=== PATIENT | female | born 1965 | race Caucasian/White ===

== ENCOUNTER 2020-10-29 13:47 | Outpatient (REF) | payer MEDICAID, SELFPAY ==
--- NOTE | ~2020-10-29 | MM_ITS ---
EXAMINATION: MM DIAGNOSTIC DIGITAL BREAST TOMOSYNTHESIS, BILATERAL US DIAGNOSTIC ULTRASOUND BREAST, BILATERAL CLINICAL INFORMATION: 55-year-old with history bilateral intermittent nipple discharge for approximately 11 months. Patient notes no palpable mass or pain. Family history breast cancer, maternal aunt. The lifetime risk of breast cancer based on the Tyrer-Cuzick Model is 16%. COMPARISON: Mammography: 08/01/2019, 05/05/2018, 12/10/2016 TECHNIQUE: Digital breast tomosynthesis is performed in both the craniocaudal and mediolateral oblique views along with computer-aided detection (CAD). Synthesized 2D images are generated from the tomosynthesis. Ultrasound ultrasound bilateral breasts is targeted to the retroareolar and periareolar regions. Grayscale imaging and color Doppler are performed without and with harmonics. FINDINGS: There are scattered areas of fibroglandular density (ACR BI-RADS breast composition Category b). Parenchymal pattern is similar to prior studies. There is no developing density or interval mass or architectural abnormality or focal duct ectasia. There are scattered bilateral calcifications predominantly in the anterior breasts similar to prior exams. There are incidental intramammary nodes again seen in the bilateral posterior upper outer quadrants. The axilla and skin contours are unremarkable. There are no significant changes. Targeted bilateral breast ultrasound demonstrates no cystic or solid mass, architectural abnormality, or focal duct ectasia. Results are discussed with the patient at time of visit, using an correspondence coordinator. MM/MM tomosynthesis diagnostic BI IMPRESSION: 1. No mammographic evidence of malignancy. No significant changes from prior exams. 2. Unremarkable bilateral targeted breast ultrasound. ASSESSMENT: BI-RADS 2: Benign RECOMMENDATION: 1. Patient should be managed based on the clinical impression. Suggest laboratories for possible systemic endocrine etiology of the bilateral nipple discharge. 2. Otherwise, routine annual screening mammography. This patient's information was entered into a reminder system with a target due date for their next mammogram.
== END 2020-10-29 13:48 | disposition home or self-care (01) ==
LOC: HO.MAMMO 13:47
PROVIDERS: PCP Internal Medicine; Visit Provider Internal Medicine
DX: N64.52 Nipple discharge (principal)
CPT/HCPCS: 76642; 77062; 77066

== ENCOUNTER 2021-10-07 13:47 | Emergency (ER) | payer MEDICAID, SELFPAY ==
--- NOTE | 2021-10-07 | ECG_ITS ---
Test Reason : cp Blood Pressure : / mmHG Vent. Rate : 066 BPM Atrial Rate : 066 BPM P-R Int : 124 ms QRS Dur : 076 ms QT Int : 378 ms P-R-T Axes : 052 020 028 degrees QTc Int : 396 ms Normal sinus rhythm Normal ECG No significant changes when compared with the previous EKG of 07/16/2018 Referred By: Generic ED Physician Electronically Signed By:VERONICA RUIZ
--- NOTE | ~2021-10-07 | XR_ITS ---
EXAMINATION: XR CHEST CLINICAL INFORMATION: Chest pain COMPARISON: Previous chest x-ray most recent June 2018 TECHNIQUE: Frontal view of the chest was obtained. FINDINGS: No significant abnormality is noted involving the heart, lungs, mediastinum, bony thorax or soft tissues. XR/XR chest 1V IMPRESSION: Unremarkable examination.
[2021-10-07 14:21] VITALS: BP 169/86; PULSE 64; RESP 16; TEMP 35.8; O2SAT 99; BMI 34.4
[2021-10-07 14:38] LABS: MANUAL DIFF FLAG NO
[2021-10-07 14:39] LABS: Basophils Percent Auto 0.5 % (0-2); Eosinophils Absolute Auto 0.5 X10*3/uL (0.0-0.4); Eosinophils Percent Auto 7.4 % (0-4); Hematocrit 38.6 % (37.0-47.0); Hemoglobin 12.8 g/dl (12.0-16.0); Imm Gran Abs Auto 0.01 X10*3/uL (0.00-0.03); Imm Gran Pct Auto 0.2 % (0.0-0.4); Lymphocytes Absolute Auto 2.5 X10*3/uL (1.2-4.9); Lymphocytes Percent Auto 38.2 % (20-40); Mean Corpuscular HGB Conc 33.2 g/dl (31.0-35.0); Mean Corpuscular Hemoglobin 28.4 pg (27.0-33.0); Mean Corpuscular Volume 85.8 fL (80.0-98.0); Mean Platelet Volume 9.8 fL (9.4-12.3); Monocytes Absolute Auto 0.5 X10*3/uL (0.1-1.2); Monocytes Percent Auto 7.8 % (2-11); Neutrophils Absolute Auto 3.1 x10*3/uL (2.0-8.3); Neutrophils Percent Auto 45.9 % (45-73); Platelet Count 220 X10*3/uL (160-400); Red Cell Distribution Width 13.1 % (11.0-16.0); White Blood Count 6.7 X10*3/uL (4.8-10.8)
[2021-10-07 14:55] LABS: Anion Gap 11 (12-20); Blood Urea Nitrogen 10 mg/dL (9-16); Calcium 10.4 mg/dL (8.4-10.2); Carbon Dioxide 27 mmol/L (22-29); Chloride 107 mmol/L (96-108); Creatinine Clr Calc Pharmacy 82.5; Estimated Glomerular Filt Rate > 60; Glucose Random 124 mg/dL (60-115); Sodium 141 mmol/L (135-145)
[2021-10-07 15:03] LABS: Troponin-I High Sensitivity 4.7 ng/L (<3.5-17.0)
[2021-10-07 15:26] VITALS: BP 145/82; PULSE 76; RESP 16; TEMP 36.6; O2SAT 98
[2021-10-07 15:48] VITALS: PULSE 71
--- NOTE | 2021-10-07 15:48 | PC.NURSE ---
pt a&ox3, vss, pt c/o worsening chest pain for ~1 month, 5/10 left sided chest and arm pain. interpreter in room. pending ED provider.
--- NOTE | 2021-10-07 15:58 | ED_ITS ---
HPI - Chest Pain General Chief Complaint: Chest Pain Stated Complaint: chest pain Time Seen by Provider: 10/07/21 15:57 Source: patient Mode of arrival: ambulatory Limitations: no limitations History of Present Illness HPI narrative: This is a 56-year-old female past medical history significant for diabetes presenting to the emergency department with left-sided chest pain/shoulder pain x1 month progressively worsening. Patient tells me that the pain is a squeezing sensation localized to the left chest and at times radiating to her shoulder. Pain is precipitated by movement and palpation of the area. It is better when she does not move that left shoulder or presses on her left chest. Patient tells me she does not remember how this pain started. She tells me the pain is currently a 5/10, however when she moves or presses on the area it is a 10/10. Patient also reports associated shortness of breath, worse with exertion this is new within the past month. Patient is not a smoker. She denies any fevers, chills, nausea, vomiting, abdominal pain, weakness, dizziness, vision changes. MD complaint: chest pain Onset (ago): month(s) (1) Timing of current episode: constant Prior episodes: Yes Pain location: left chest Pain radiation: left shoulder Severity: moderate Pain scale (0-10): 5 Quality: other ( squeezing ) Relieving factors: nothing Exacerbating factors: nothing Treatment prior to arrival: none Related Data Previous Rx's Medication Instructions Recorded cyclobenzaprine 10 mg tablet 10 mg PO BEDTIME PRN #7 tab 10/07/21 naproxen 500 mg tablet 500 mg PO BID PRN #14 tab 10/07/21 Allergies Allergy/AdvReac Type Severity Reaction Status Date / Time No Known Allergies Allergy Unverified 10/07/21 14:21 Review of Systems Review of Systems: Constitutional : No Weight loss, No Fever, No Chills, No Fatigue, No Malaise ENT/Mouth : No sore throat, No Rhinorrhea Eyes: No Eye Pain, No Swelling, No Redness Cardiovascular : + Chest Pain, No SOB, No Dyspnea on Exertion, No Orthopnea, No Edema, No Palpitations Respiratory : No Cough, No Sputum, No Wheezing Gastrointestinal : No Nausea, No Vomiting, No Diarrhea, No Constipation, No abdominal Pain, No Hematochezia, No Melena Genitourinary : No Dysuria, No Urinary Frequency, No Hematuria, Musculoskeletal : No joint pain, No Myalgias, No Joint Swelling Skin : No Skin Lesions, No rash Neuro : No Weakness, No Numbness, No Dizziness, No Headache Psych : No Anxiety/Panic, No Depression All other systems reviewed and are negative Yes all other systems are reviewed and are negative [facility] Past Medical History Attestation statement: The following information was validated with the patient. Source: old records reviewed and nursing notes reviewed Medical History Diabetes Social History Social History Alcohol intake: never Patient Tobacco Use Status: Never used Tobacco Use of substances other than those prescribed or required for medical reasons: No Advance Directives: No Advance Directives Information Provided: No Patient : No Physical Exam Vital Signs: Vital Signs: Last Vital Signs Temp 97.9 F 10/07/21 15:26 Pulse 76 10/07/21 15:26 Resp 16 10/07/21 15:26 BP 145/82 H 10/07/21 15:26 Pulse Ox 98 10/07/21 15:26 BMI result Body Mass Index 34.4 VSS Appearance: Alert.? Oriented X3.? No acute distress.? Head: Normocephalic, atraumatic, no step-offs or deformities Eyes: Pupils equal, round and reactive to light.? ENT: Pharynx normal.? Neck: Normal inspection.? Neck supple.? CVS: Normal heart rate and rhythm.? Pulses normal.?+ pain with palpation of left chest, and anterior aspect of left shoulder, no step-offs or deformities to the shoulder. Respiratory: No respiratory distress.? Breath sounds normal.? Abdomen: Soft and nontender.? Skin: Skin warm and dry.? Normal skin color.? Normal skin turgor.? Extremities: No lower extremity edema.? No calf ttp. 5/5 strength to bilateral upper and lower extremities Back: No midline tenderness, no C-spine tenderness, full range of motion, no CVA tenderness bilaterally Neuro: Oriented X 3.? No motor deficit.? No sensory deficit. CN 2-12 intact Course Reevaluation(s) Reevaluation #1: CBC within normal limits. Chemistry with no acute electrolyte abnormalities requiring intervention. Troponin 4.7 will repeat in 3 hours Time: 16:15 Reevaluation #2: BNP within normal limits. Second troponin flat, nonischemic EKG unlikely that this is ACS. D-dimer negative unlikely that this is PE. Patient has 2+ leukocyte esterases in urine however no urinary symptoms at this time will not treat for urinary tract infection. Based off patient history and physical examination her chest pain is reproducible so this is likely a costochondritis or muscle strain. I will give patient Toradol. I will send her home with naproxen and cyclobenzaprine. Advised her to return with any new or worsening symptoms. Advised her to follow-up with cardiology if pain does not improve in a week or 2. Comfortable with discharge home with PCP and cardiology follow-up is necessary. Time: 17:30 MDM - Chest Pain MDM Narrative Medical decision making narrative: [id number] 56-year-old female past medical history significant for diabetes presenting with left-sided chest pain described as squeezing x1 week. Pain exacerbated by palpation and movement. Physical exam significant for pain with palpation of left chest and anterior aspect of left shoulder with no step-offs or deformities. Lungs clear. Abdomen soft nontender nondistended. Neuro exam nonfocal. Plan at this time is basic labs, chest x-ray, troponin, BNP, EKG. Will rule out ACS. Unlikely that this is PE, aortic dissection. Pain is reproducible this is likely musculoskeletal pain. Medical Records Data Attestation: I reviewed the patient's medical records. Lab Data Attestation: I reviewed the patient's lab results. Result diagrams: 10/07/21 14:31 10/07/21 14:31 Labs: Lab Results 10/07/21 10/07/21 10/07/21 Range/Units 14:31 14:31 14:31 WBC 6.7 (4.8-10.8) X10*3/uL RBC 4.50 (4.20-5.50) X10*6/uL Hgb 12.8 (12.0-16.0) g/dl Hct 38.6 (37.0-47.0) % MCV 85.8 (80.0-98.0) fL MCH 28.4 (27.0-33.0) pg MCHC 33.2 (31.0-35.0) g/dl RDW 13.1 (11.0-16.0) % Plt Count 220 (160-400) X10*3/uL MPV 9.8 (9.4-12.3) fL Immature Gran % (Auto) 0.2 (0.0-0.4) % Neut % (Auto) 45.9 (45-73) % Lymph % (Auto) 38.2 (20-40) % [place] % (Auto) 7.8 (2-11) % Eos % (Auto) 7.4 H (0-4) % Baso % (Auto) 0.5 (0-2) % Lymph # (Auto) 2.5 (1.2-4.9) X10*3/uL [place] # (Auto) 0.5 (0.1-1.2) X10*3/uL Eos # (Auto) 0.5 H (0.0-0.4) X10*3/uL Baso # (Auto) 0.0 (0.0-0.2) X10*3/uL Abs Immat Gran (auto) 0.01 (0.00-0.03) X10*3/uL Absolute Neuts (auto) 3.1 (2.0-8.3) x10*3/uL Absolute Nucleated RBC 0.000 (0.0-0.012) X10*3/uL Nucleated RBC % (auto) 0.0 (0.0-0.2) /100WBC D-Dimer High Sensitivty NG/ML Sodium 141 (135-145) mmol/L Potassium 4.0 (3.3-5.1) mmol/L Chloride 107 (96-108) mmol/L Carbon Dioxide 27 (22-29) mmol/L Anion Gap 11 L (12-20) BUN 10 (9-16) mg/dL Creatinine 0.78 (0.5-1.4) mg/dL Estim Creat Clear Calc 82.5 Estimated GFR > 60 Random Glucose 124 H (60-115) mg/dL Calcium 10.4 H (8.4-10.2) mg/dL Troponin I High Sens 4.7 (<3.5-17.0) ng/L B-Natriuretic Peptide < 10 (<100) pg/mL Urine Color Urine Appearance Urine pH (5.0-8.0) Ur Specific [place] (1.005-1.025) Urine Protein (NEG-TRACE) MG/DL Urine Glucose (UA) (NEG) MG/DL Urine Ketones (NEG) MG/DL Urine Blood (NEG) Urine Nitrite (NEG) Ur Leukocyte Esterase (NEG) 10/07/21 10/07/21 10/07/21 Range/Units 16:52 16:52 16:52 WBC (4.8-10.8) X10*3/uL RBC (4.20-5.50) X10*6/uL Hgb (12.0-16.0) g/dl Hct (37.0-47.0) % MCV (80.0-98.0) fL MCH (27.0-33.0) pg MCHC (31.0-35.0) g/dl RDW (11.0-16.0) % Plt Count (160-400) X10*3/uL MPV (9.4-12.3) fL Immature Gran % (Auto) (0.0-0.4) % Neut % (Auto) (45-73) % Lymph % (Auto) (20-40) % [place] % (Auto) (2-11) % Eos % (Auto) (0-4) % Baso % (Auto) (0-2) % Lymph # (Auto) (1.2-4.9) X10*3/uL [place] # (Auto) (0.1-1.2) X10*3/uL Eos # (Auto) (0.0-0.4) X10*3/uL Baso # (Auto) (0.0-0.2) X10*3/uL Abs Immat Gran (auto) (0.00-0.03) X10*3/uL Absolute Neuts (auto) (2.0-8.3) x10*3/uL Absolute Nucleated RBC (0.0-0.012) X10*3/uL Nucleated RBC % (auto) (0.0-0.2) /100WBC D-Dimer High Sensitivty 180 NG/ML Sodium (135-145) mmol/L Potassium (3.3-5.1) mmol/L Chloride (96-108) mmol/L Carbon Dioxide (22-29) mmol/L Anion Gap (12-20) BUN (9-16) mg/dL Creatinine (0.5-1.4) mg/dL Estim Creat Clear Calc Estimated GFR Random Glucose (60-115) mg/dL Calcium (8.4-10.2) mg/dL Troponin I High Sens 3.9 (<3.5-17.0) ng/L B-Natriuretic Peptide (<100) pg/mL Urine Color YELLOW Urine Appearance CLEAR Urine pH 7.5 (5.0-8.0) Ur Specific [place] 1.015 (1.005-1.025) Urine Protein NEG (NEG-TRACE) MG/DL Urine Glucose (UA) NEG (NEG) MG/DL Urine Ketones NEG (NEG) MG/DL Urine Blood NEG (NEG) Urine Nitrite NEG (NEG) Ur Leukocyte Esterase 2+ H (NEG) ECG Data ECG #1: Attestation: I personally reviewed and interpreted this ECG as follows: ECG interpretation date: 10/07/21 ECG interpretation time: 17:30 Prior ECG tracings: available for review Interpretation: Ventricular rate of 66, AR normal, QRS normal, QT/QTC normal. EKG shows normal sinus rhythm with no ST elevations or inversions concerning for ischemia. No significant changes when compared to EKG from 2019. Critical Care Time Critical Care Time Critical Care Time: No Discharge Plan Discharge Clinical Impression: Chest pain not due to acute coronary syndrome Patient Disposition: Home, Self-Care Instructions: Chest Pain (ED) Additional Instructions: Take your medications as prescribed. If you were prescribed antibiotics today, it is important that you take your medication to their entirety, do not skip any doses, do not finish them early. Follow-up with your primary care provider this week. Follow-up with cardiology if symptoms do not improve within a week or 2. Return to the emergency department with new or worsening symptoms. Such as fevers, chills, chest pain, shortness of breath, nausea, vomiting, dizziness, headache, vision changes, lethargy In case of emergency call 911 I checked your cardiac enzymes which were all normal, I checked a BNP level which is an indicator for heart failure was also within normal limits. Your screening test for a blood clot was negative therefore unlikely that this is a blood clot. Your chest x-ray looked good and your EKG was unchanged from her EKG few years ago. I suspect that your chest pain is musculoskeletal as it is reproducible in nature. Prescriptions: New cyclobenzaprine 10 mg tablet 10 mg PO BEDTIME PRN (Reason: muscle spasm) Qty: 7 0RF naproxen 500 mg tablet 500 mg PO BID PRN (Reason: pain) Qty: 14 0RF Rx Instructions: Take with food Referrals: Johnny Banuelos MD [Primary Care Provider] - 2 days Arnoldo Calero MD [Physician] - 2 weeks (Follow-up only if necessary and pain continues.) Stand Alone Forms: Work/School Release
[2021-10-07 16:37] LABS: B Type Natriuretic Peptide < 10 pg/mL (<100)
[2021-10-07 17:01] LABS: Appearance Urine CLEAR; Color Urine YELLOW; Glucose Urine UA NEG (NEG); Leukocyte Esterase Urine 2+ (NEG); Nitrite Urine NEG (NEG); PH 7.5 (5.0-8.0); Specific Gravity - Urine 1.015 (1.005-1.025); UACC Culture Trigger YES; Urine Blood NEG (NEG); Urine Ketones NEG (NEG); Urine Protein NEG (NEG-TRACE)
[2021-10-07 17:05] LABS: D Dimer High Sensitivity 180 NG/ML
[2021-10-07 17:20] LABS: Troponin-I High Sensitivity 3.9 ng/L (<3.5-17.0)
[2021-10-07] MEDS: Ketorolac Tromethamine 15 MG/ML VIAL 30 MG IM (17:40)
[2021-10-07 18:04] LABS: RBC Urine 0-2 /HPF (0); Squamous Epithelial Cell Urine TRACE /LPF; UACC CULT YES
[2021-10-07 18:05] LABS: Bacteria Urine TRACE /LPF
== END 2021-10-07 17:50 | disposition home or self-care (01) ==
PROVIDERS: Physician Assistant; Emergency Provider Emergency Medicine; PCP Internal Medicine
DX: R07.89 Other chest pain (principal); M25.512 Pain in left shoulder; R06.02 Shortness of breath; Z79.899 Other long term (current) drug therapy
CPT/HCPCS: 36415; 71045; 80048; 81001; 83880; 84484; 85025; 85379; 87086; 87147; 93005; 96372; 99284; J1885

== ENCOUNTER 2021-10-30 13:53 | Outpatient (REF) | payer MEDICAID, SELFPAY ==
--- NOTE | ~2021-10-30 | MM_ITS ---
EXAMINATION: MM SCREENING DIGITAL BREAST TOMOSYNTHESIS, BILATERAL CLINICAL INFORMATION: Screening. Asymptomatic. The lifetime risk of breast cancer based on the Tyrer-Cuzick Model is 14.5%. COMPARISON: Mammography: October 29, 2020 and studies dating back to January 13, 2012 TECHNIQUE: Digital breast tomosynthesis is performed in both the craniocaudal and mediolateral oblique views along with computer-aided detection (CAD). Synthesized 2D images are generated from the tomosynthesis. FINDINGS: There are scattered areas of fibroglandular density (ACR BI-RADS breast composition Category b). There are no significant masses, abnormal calcifications, or other abnormalities. MM/MM tomosynthesis screening BI IMPRESSION: There are no significant changes from prior study. ASSESSMENT: BI-RADS 1: Negative RECOMMENDATION: Routine annual mammography screening. This patient's information was entered into a reminder system with a target due date for their next mammogram.
== END 2021-10-30 13:54 | disposition home or self-care (01) ==
LOC: HO.MAMMO 13:53
PROVIDERS: Visit Provider Internal Medicine
DX: Z12.31 Encounter for screening mammogram for malignant neoplasm of breast (principal)
CPT/HCPCS: 77063; 77067

== ENCOUNTER 2022-01-16 11:06 | Outpatient (REF) | payer MEDICAID, SELFPAY ==
--- NOTE | ~2022-01-16 | XR_ITS ---
EXAMINATION: XR LUMBOSACRAL SPINE CLINICAL INFORMATION: Low back pain COMPARISON: Previous x-ray from 2015 TECHNIQUE: Three views of the lumbosacral spine. FINDINGS: Bone alignment is normal. No fracture or dislocation is seen. There is degenerative disc disease and spondylosis at L1-L2. Disc spaces are otherwise normal. The joints are normal. Paraspinal soft tissues are normal. XR/XR lumbar spine 2-3V IMPRESSION: Degenerative changes at L1-L2.
== END 2022-01-16 11:07 | disposition home or self-care (01) ==
LOC: HO.XRAY 11:06
PROVIDERS: PCP Internal Medicine; Visit Provider Internal Medicine
DX: M54.50 Low back pain, unspecified (principal)
CPT/HCPCS: 72100

== ENCOUNTER 2022-02-04 08:58 | Outpatient (REF) | payer MEDICAID, SELFPAY | END 2022-02-04 08:59 | disposition home or self-care (01) | LOC: HO.CT 08:58 | PROVIDERS: PCP Internal Medicine; Visit Provider Internal Medicine | DX: Z13.89 Encounter for screening for other disorder (principal) ==

== ENCOUNTER 2022-02-18 06:30 | Outpatient (REF) | payer MEDICAID, SELFPAY ==
--- NOTE | ~2022-02-18 | CT_ITS ---
EXAMINATION: CT ABDOMEN AND PELVIS WITH CONTRAST CLINICAL INFORMATION: Right lower quadrant and left lower quadrant pain. COMPARISON: None TECHNIQUE: Multidetector volumetric images were obtained from the superior aspect of the liver through the pubic symphysis following administration 85 mL of Omnipaque 350 intravenous contrast. Sagittal and coronal reformatted images were obtained on the technologist's workstation. Oral contrast: No. This CT examination was performed using dose optimization techniques as appropriate, variously including the following: *Automated exposure control *Adjustment of mA and/or kV according to patient size (this includes techniques or standardized protocols for targeted exams where dose is matched to indication/reason for exam; i.e. extremities or head) *Use of iterative reconstruction technique DLP: 478 mGy-cm FINDINGS: LUNG BASES: There is a focal ground-glass medial left CP angle measuring 1.5 cm, question atelectasis. The heart size is normal. The right lung base is clear. LIVER, GALLBLADDER, AND BILIARY TREE: The liver is normal in size, shape, and attenuation. There is a 6 mm hypodensity segment 2 adjacent to the right hemidiaphragm, likely cyst. There is a 1.4 cm laminated gallstone. No wall thickening or pericholecystic fluid collection seen. PANCREAS: Unremarkable. SPLEEN: Unremarkable. ADRENAL GLANDS: There is a 1.7 x 2.1 x 2.9 cm enhancing lesion right adrenal gland measuring 88 Hounsfield units. The left adrenal gland is normal. KIDNEYS AND URETERS: The kidneys are normal in size, shape, and attenuation. No hydronephrosis, hydroureter, or calculi seen. No perinephric stranding. BLADDER: Unremarkable. GASTROINTESTINAL TRACT: There is moderate stool, oral contrast and gas seen throughout the colon without significant distention. The small bowel loops are normal caliber. The appendix is normal caliber. ABDOMINAL WALL: No significant hernia is appreciated. LYMPH NODES: Normal. VASCULAR: Unremarkable. PELVIC VISCERA: Unremarkable. OSSEOUS STRUCTURES: There are degenerative disc changes and ventral spondylosis at the L1-L2 and L2-L3 disc levels. No aggressive lytic or sclerotic process seen. CT/CT abdomen pelvis w IV con IMPRESSION: Moderate constipation without obstruction. There is no evidence of diverticulitis. Normal appendix. Right adrenal enhancing lesion. Recommend CT adrenal protocol for further evaluation. Solitary gallstone without wall thickening Fleischner guidelines were followed.
[2022-02-18] MEDS: Barium Sulfate Oral (Mocha) 450 ML ORAL.SUSP 900 ML PO (09:05)
[2022-02-18] MEDS: iohexoL 350 MG/ML 100 ML INFUS..BTL IV (09:06)
== END 2022-02-18 06:31 | disposition home or self-care (01) ==
LOC: HO.CT 06:30
PROVIDERS: Visit Provider Internal Medicine
DX: R10.31 Right lower quadrant pain (principal); R10.32 Left lower quadrant pain
CPT/HCPCS: 74177; Q9967

== ENCOUNTER 2022-03-17 08:53 | Outpatient (REF) | payer MEDICAID, SELFPAY ==
--- NOTE | ~2022-03-17 | CT_ITS ---
EXAMINATION: CT ABDOMEN WITHOUT AND WITH CONTRAST CLINICAL INFORMATION: Adrenal mass COMPARISON: Previous CT of the abdomen and pelvis January 2022 TECHNIQUE: Contiguous axial thin section helical images of the abdomen were performed before and after the administration of oral contrast and 85 mL of Omnipaque 350 intravenous contrast. The data set was reformatted in the coronal and sagittal planes and reviewed on an independent workstation. This CT examination was performed using dose optimization techniques as appropriate, variously including the following: *Automated exposure control *Adjustment of mA and/or kV according to patient size (this includes techniques or standardized protocols for targeted exams where dose is matched to indication/reason for exam; i.e. extremities or head) *Use of iterative reconstruction technique DLP: 431 mGy-cm FINDINGS: LUNG BASES: There is increased attenuation in the peripheral or subpleural left lower lobe adjacent to bony osteophyte probably representing atelectasis. The visualized lung bases are otherwise clear. LIVER, GALLBLADDER, AND BILIARY TREE: There is a small 5 mm low-attenuation lesion in the medial segment of the left lobe of the liver probably representing a cyst. There are other smaller liver lesions difficult to characterize but may represent cysts as well. The liver is otherwise normal. There is a gallstone in the gallbladder. There is no biliary duct dilatation. PANCREAS: Normal SPLEEN: Normal ADRENAL GLANDS AND KIDNEYS: There is a 2.1 x 1.6 cm low-attenuation right adrenal lesion. Hounsfield units without contrast measure 5. Hounsfield units immediately post IV contrast measure 80. Delayed Hounsfield units following IV contrast measure 32. This is suggestive of a benign lipid rich adenoma. BOWEL LOOPS: Normal LYMPH NODES: Normal. VASCULAR: Unremarkable. BONES: Mild degenerative changes of the spine. CT/CT abdomen wo/w IV con IMPRESSION: 2.1 x 1.6 cm low-attenuation right adrenal lesion suggestive of a benign lipid rich adenoma. Gallstone. Probable liver cysts. Fleischner guidelines were followed.
[2022-03-17] MEDS: iohexoL 350 MG/ML 100 ML INFUS..BTL IV (09:55)
[2022-03-18 08:38] LABS: Creatinine POC 0.6 mg/dL (0.5-1.4); GFR POC > 60
== END 2022-03-17 08:54 | disposition home or self-care (01) ==
LOC: HO.CT 08:53
PROVIDERS: Visit Provider Internal Medicine
DX: E27.8 Other specified disorders of adrenal gland (principal)
CPT/HCPCS: 74170; 82565; Q9967

== ENCOUNTER 2022-06-15 11:16 | Outpatient (REF) | payer MEDICAID, SELFPAY ==
[2022-06-15 11:55] LABS: MANUAL DIFF FLAG NO
[2022-06-15 12:25] LABS: Basophils Absolute Auto 0.1 X10*3/uL (0.0-0.2); Eosinophils Absolute Auto 0.1 X10*3/uL (0.0-0.4); Eosinophils Percent Auto 2.2 % (0-4); Hematocrit 39.4 % (37.0-47.0); Hemoglobin 13.2 g/dl (12.0-16.0); Imm Gran Abs Auto 0.02 X10*3/uL (0.00-0.03); Imm Gran Pct Auto 0.4 % (0.0-0.4); Lymphocytes Absolute Auto 2.2 X10*3/uL (1.2-4.9); Mean Corpuscular HGB Conc 33.5 g/dl (31.0-35.0); Mean Corpuscular Hemoglobin 28.9 pg (27.0-33.0); Mean Corpuscular Volume 86.2 fL (80.0-98.0); Mean Platelet Volume 11.2 fL (9.4-12.3); Monocytes Absolute Auto 0.4 X10*3/uL (0.1-1.2); Monocytes Percent Auto 8.5 % (2-11); Neutrophils Absolute Auto 2.2 x10*3/uL (2.0-8.3); Neutrophils Percent Auto 43.9 % (45-73); Platelet Count 244 X10*3/uL (160-400); Red Blood Count 4.57 X10*6/uL (4.20-5.50); White Blood Count 5.1 X10*3/uL (4.8-10.8)
[2022-06-15 12:54] LABS: Estimated Average Glucose 280 mg/dL; Hemoglobin A1c % 11.4 %
[2022-06-15 13:23] LABS: Alanine Aminotransferase 15 U/L (0-31); Albumin Level 4.2 g/dL (3.5-5.0); Alkaline Phosphatase 150 U/L (39-117); Anion Gap 13 (12-20); Aspartate Amino Transferase 17 U/L (5-31); Bilirubin Total 0.8 mg/dL (0.0-1.0); Blood Urea Nitrogen 13 mg/dL (9-16); Calcium 10.5 mg/dL (8.4-10.2); Carbon Dioxide 29 mmol/L (22-29); Chloride 102 mmol/L (96-108); Estimated Glomerular Filt Rate > 60; Glucose Random 371 mg/dL (60-115); Potassium 4.8 mmol/L (3.3-5.1); Sodium 139 mmol/L (135-145); Total Protein 7.5 g/dL (6.5-8.0)
== END 2022-06-15 11:17 | disposition home or self-care (01) ==
LOC: HO.LAB 11:16
PROVIDERS: PCP Internal Medicine; Referring Provider Internal Medicine; Visit Provider Surgery
DX: K80.20 Calculus of gallbladder without cholecystitis without obstruction (principal); E11.65 Type 2 diabetes mellitus with hyperglycemia
CPT/HCPCS: 36415; 80053; 83036; 84134; 85025; 99202

== ENCOUNTER → 2022-06-26 10:58 | Outpatient (BNVA) | payer MEDICAID, SELFPAY | PROVIDERS: PCP Internal Medicine; Visit Provider Surgery | DX: K80.20 Calculus of gallbladder without cholecystitis without obstruction (principal); E11.65 Type 2 diabetes mellitus with hyperglycemia; D35.00 Benign neoplasm of unspecified adrenal gland | CPT/HCPCS: 99212 ==

== ENCOUNTER → 2022-07-17 10:47 | Outpatient (BNVA) | payer MEDICAID, SELFPAY | PROVIDERS: PCP Internal Medicine; Visit Provider Internal Medicine Endocrinology, Diabetes & Metabolism | DX: E11.65 Type 2 diabetes mellitus with hyperglycemia (principal); D35.01 Benign neoplasm of right adrenal gland | CPT/HCPCS: 36415; 82043; 82533; 82947; 83835; 99202 ==

== ENCOUNTER 2022-07-17 12:28 | Outpatient (REF) | payer MEDICAID, SELFPAY ==
[2022-07-17 13:33] LABS: Cortisol Random 13.3 ug/dL
[2022-07-17 14:20] LABS: Creatinine Urine 95.47 mg/dL; Microalbum/Creatinine Ratio Ur 18.8 ug/mg cr
[2022-07-23 14:24] LABS: Metanephrine, Free 31 pg/mL (<=57); Normetanephrines, Free 111 pg/mL (<=148); Total Metanephrine, Free 142 pg/mL (<=205)
== END 2022-07-17 12:29 | disposition home or self-care (01) ==
LOC: HO.10HDL 12:28
PROVIDERS: Visit Provider Internal Medicine Endocrinology, Diabetes & Metabolism
DX: E11.65 Type 2 diabetes mellitus with hyperglycemia (principal)
CPT/HCPCS: 36415; 82043; 82533; 83835

== ENCOUNTER 2022-07-23 07:41 | Outpatient (REF) | payer MEDICAID, SELFPAY ==
[2022-07-24 20:13] LABS: DHEA Sulfate 27 mcg/dL (5-167)
[2022-07-30 10:38] LABS: Dexamethasone 232 ng/dL
== END 2022-07-23 07:42 | disposition home or self-care (01) ==
LOC: HO.LAB 07:41
PROVIDERS: PCP Internal Medicine; Visit Provider Internal Medicine Endocrinology, Diabetes & Metabolism
DX: E11.65 Type 2 diabetes mellitus with hyperglycemia (principal); D35.00 Benign neoplasm of unspecified adrenal gland
CPT/HCPCS: 36415; 80299; 82533; 82627

== ENCOUNTER 2022-07-27 09:14 | Outpatient (REF) | payer MEDICAID, SELFPAY ==
[2022-07-27 10:39] LABS: Cholesterol 228 mg/dL; HDL Cholesterol 62 mg/dL; LDL Cholesterol Calculated 147 mg/dl; Triglycerides 97 mg/dL
== END 2022-07-27 09:15 | disposition home or self-care (01) ==
LOC: HO.LAB 09:14
PROVIDERS: PCP Internal Medicine; Visit Provider Internal Medicine Endocrinology, Diabetes & Metabolism
DX: E11.65 Type 2 diabetes mellitus with hyperglycemia (principal)
CPT/HCPCS: 36415; 80061

== ENCOUNTER → 2022-07-28 11:18 | Outpatient (BNVA) | payer MEDICAID, SELFPAY | PROVIDERS: PCP Internal Medicine; Visit Provider Surgery | DX: K80.20 Calculus of gallbladder without cholecystitis without obstruction (principal); D35.00 Benign neoplasm of unspecified adrenal gland; E11.65 Type 2 diabetes mellitus with hyperglycemia | CPT/HCPCS: 99212 ==

== ENCOUNTER → 2022-08-25 10:22 | Outpatient (BNVA) | payer MEDICAID, SELFPAY | PROVIDERS: PCP Internal Medicine; Visit Provider Surgery | DX: K80.20 Calculus of gallbladder without cholecystitis without obstruction (principal); E11.65 Type 2 diabetes mellitus with hyperglycemia; D35.01 Benign neoplasm of right adrenal gland; Z79.84 Long term (current) use of oral hypoglycemic drugs | CPT/HCPCS: 99212 ==

== ENCOUNTER → 2022-10-15 10:42 | Outpatient (BNVA) | payer MEDICAID, SELFPAY | PROVIDERS: PCP Internal Medicine; Visit Provider Registered Nurse Diabetes Educator | DX: E11.65 Type 2 diabetes mellitus with hyperglycemia (principal) | CPT/HCPCS: 83036; 99211 ==

== ENCOUNTER → 2022-11-17 10:58 | Outpatient (BNVA) | payer MEDICAID, SELFPAY | PROVIDERS: PCP Internal Medicine; Visit Provider Internal Medicine Endocrinology, Diabetes & Metabolism | DX: E11.65 Type 2 diabetes mellitus with hyperglycemia (principal); D35.01 Benign neoplasm of right adrenal gland; Z79.84 Long term (current) use of oral hypoglycemic drugs | CPT/HCPCS: 82947; 99212 ==

== ENCOUNTER 2022-11-20 12:52 | Outpatient (REF) | payer MEDICAID, SELFPAY ==
--- NOTE | ~2022-11-20 | MM_ITS ---
EXAMINATION: MM SCREENING DIGITAL BREAST TOMOSYNTHESIS, BILATERAL CLINICAL INFORMATION: Screening. Asymptomatic. The lifetime risk of breast cancer based on the Tyrer-Cuzick Model is 14.2%. COMPARISON: Mammography: This study is compared to prior mammograms dating back to 2018. TECHNIQUE: Digital breast tomosynthesis is performed in both the craniocaudal and mediolateral oblique views along with computer-aided detection (CAD). Synthesized 2D images are generated from the tomosynthesis. FINDINGS: There are scattered areas of fibroglandular density (ACR BI-RADS breast composition Category b). In the upper quadrant of the left breast, in the MLO projection, there is an asymmetry for which additional mammographic imaging is advised. Sonography may be performed at the discretion of the diagnostic radiologists. In the right breast, there are no significant masses, abnormal calcifications, or other abnormalities. MM/MM tomosynthesis screening BI IMPRESSION: Asymmetry of the upper quadrant of the left breast warrants additional mammographic imaging. No mammographic signs of malignancy right breast. ASSESSMENT: BI-RADS BI-RADS 0 - Incomplete: Needs additional Imaging. RECOMMENDATION: 1. Additional views of the left breast 2. Targeted ultrasound if warranted after review of the additional views. 3. Radiology department staff will contact the patient for additional imaging. Additional Imaging required This patient's information was entered into a reminder system with a target due date for their next mammogram.
== END 2022-11-20 12:53 | disposition home or self-care (01) ==
LOC: HO.MAMMO 12:52
PROVIDERS: PCP Internal Medicine; Visit Provider Internal Medicine
DX: Z12.31 Encounter for screening mammogram for malignant neoplasm of breast (principal)
CPT/HCPCS: 77063; 77067

== ENCOUNTER → 2022-11-20 13:00 | Outpatient (BNV) | payer MEDICAID, SELFPAY | PROVIDERS: PCP Internal Medicine; Visit Provider Radiology Diagnostic Radiology | DX: Z12.31 Encounter for screening mammogram for malignant neoplasm of breast (principal) | CPT/HCPCS: 77063; 77067 ==

== ENCOUNTER 2022-12-11 08:06 | Outpatient (AMB) | payer MEDICAID, SELFPAY ==
[2022-12-11 08:29] VITALS: BP 127/68; PULSE 81; BMI 32.4
--- NOTE | 2022-12-11 08:29 | MHC.OFFVIS ---
Intake Vital Signs 12/11/22 08:29 Height 5 ft 2 in Weight 177 lb BMI 32.4 BP 127/68 Blood Pressure Location Rt brachial Position Sitting Pulse 81 Intake Visit Reasons: Anal lesion Intake Note: This patient presents for an assessment for anal lesion. Patient c/o; rectal bleeding, denies pain, constipation, occasional straining with bowel movements. 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 She has had this several months time. Her complaints are mainly bleeding and pain and swelling. Patient colonoscopy approximately 5-6 years ago which she says was within normal limit. She wishes to have her hemorrhoids removed. Chart was reviewed and patient evaluated [facility] Medical History Diabetes Surgical History Hx of tubal ligation Family History Maternal Grandmother Stomach cancer Maternal Uncle Cancer of unknown origin Maternal Aunt Skin cancer Social History Household Members: Spouse and Children Household Members Other:: Daughter, Alcohol intake: never Patient Tobacco Use Status: Never used Tobacco Physical Exam Vital Signs: Last Vital Signs Pulse 81 12/11/22 08:29 BP 127/68 12/11/22 08:29 BMI result Body Mass Index 32.4 Chest Other: Chest breath sounds bilaterally, HS 1 in 2 GI Other: Abdomen soft, benign. Rectal exam demonstrates a massive hemorrhoid at the 4 o'clock position prone and 2 smaller ones superiorly. Assessment & Plan Assessment & Plan (1) Hemorrhoid: Code(s): K64.9 - Unspecified hemorrhoids Plan Risks, benefits, alternatives a hemorrhoidectomy reviewed with the patient included but not limited to bleeding, infection, recurrence, numbness, pain, scarring, incontinence and the patient wishes to proceed. All questions were answered. Arrangements will be made for this. Patient will receive a mini bowel prep day prior. Coding Level of Care Code New Pt Level 4 (10807) Diagnoses Hemorrhoid K64.9
== END 2022-12-11 08:40 | disposition home or self-care (01) ==
PROVIDERS: PCP Internal Medicine; Referring Provider Internal Medicine; Visit Provider Surgery
DX: K64.9 Unspecified hemorrhoids (principal)
CPT/HCPCS: 99204

== ENCOUNTER → 2022-12-11 08:06 | Outpatient (BNVA) | payer MEDICAID, SELFPAY | PROVIDERS: PCP Internal Medicine; Referring Provider Internal Medicine; Visit Provider Surgery | DX: K64.9 Unspecified hemorrhoids (principal) | CPT/HCPCS: 99202 ==

== ENCOUNTER 2022-12-21 09:57 | Outpatient (REF) | payer MEDICAID, SELFPAY ==
--- NOTE | ~2022-12-21 | MM_ITS ---
EXAMINATION: MM DIAGNOSTIC DIGITAL BREAST TOMOSYNTHESIS, LEFT CLINICAL INFORMATION: The patient is called back for further evaluation of the left breast asymmetry noted on screening mammography from 11/20/2022. COMPARISON: Mammography: This study is compared with prior exams dating back to 2020. TECHNIQUE: Digital breast tomosynthesis is performed. 2D images are generated from the tomosynthesis. The following views are obtained: Left MLO spot compression and full lateral view of the left breast. FINDINGS: There are scattered areas of fibroglandular density (ACR BI-RADS breast composition Category b). Additional mammographic imaging reveals no underlying abnormality. There are no mammographic signs of malignancy. Results are provided to the patient at time of visit by the technologist. MM/MM tomosynthesis added views L IMPRESSION: No mammographic evidence of malignancy. ASSESSMENT: BI-RADS BI-RADS 1 - Negative RECOMMENDATION: 1 year F/U The next routine annual screening mammogram is due in November 2023. This patient's information was entered into a reminder system with a target due date for their next mammogram.
== END 2022-12-21 09:58 | disposition home or self-care (01) ==
LOC: HO.MAMMO 09:57
PROVIDERS: PCP Internal Medicine; Visit Provider Internal Medicine
DX: N64.89 Other specified disorders of breast (principal)
CPT/HCPCS: 77061; 77065

== ENCOUNTER → 2022-12-21 10:00 | Outpatient (BNV) | payer MEDICAID, SELFPAY | PROVIDERS: PCP Internal Medicine; Visit Provider Radiology Diagnostic Radiology | DX: R92.8 Other abnormal and inconclusive findings on diagnostic imaging of breast (principal) | CPT/HCPCS: 77065 ==

== ENCOUNTER 2023-01-07 09:03 | Outpatient (REF) | payer MEDICAID, SELFPAY ==
--- NOTE | ~2023-01-07 | FL_ITS ---
EXAMINATION: XR FLUOROSCOPY ESOPHAGRAM WITH AIR CLINICAL INFORMATION: Patient complaining of episodic dysphasia, not otherwise specified. Custom Decorating Consultant present, and patient could not provide more detailed history. COMPARISON: None TECHNIQUE: Standard air-contrast esophagram examination was performed during the ingestion of thick and thin barium with effervescent granules. Numerous spot images were obtained. FINDINGS: Oral pharyngeal and hypopharyngeal phases of swallowing appear normal. No laryngeal penetration or gross aspiration. Mild vallecular pooling was present which cleared upon subsequent swallows. There was normal epiglottic motion and soft palate elevation. Images of the most proximal esophagus demonstrated no abnormality. The esophagus is normal in caliber and course without stricture, mass, or mucosal abnormality. Esophageal motility appeared normal. There is no evidence of hiatus hernia. There was trace gastroesophageal reflux noted on reflux views. Grossly images of the stomach and duodenal bulb appear normal. FLUOROSCOPY TIME: 2.2 minutes 32 images obtained. DOSE AREA PRODUCT: 16.865 uGy-m2 (microgray-meter squared) FL/FL barium swallow with air IMPRESSION: 1. Mild vallecular pooling, which cleared upon subsequent swallows. 2. Trace gastroesophageal reflux. 3. Remainder of the examination is normal.
== END 2023-01-07 09:04 | disposition home or self-care (01) ==
LOC: HO.XRAY 09:03
PROVIDERS: PCP Internal Medicine; Visit Provider Internal Medicine
DX: R13.13 Dysphagia, pharyngeal phase (principal)
CPT/HCPCS: 74221

== ENCOUNTER → 2023-01-07 09:19 | Outpatient (BNV) | payer MEDICAID, SELFPAY | PROVIDERS: PCP Internal Medicine; Visit Provider Radiology Diagnostic Radiology | DX: R13.13 Dysphagia, pharyngeal phase (principal) | CPT/HCPCS: 74221 ==

== ENCOUNTER 2023-01-14 10:01 | Outpatient (AMB) | payer MEDICAID, SELFPAY ==
--- NOTE | 2023-01-12 08:18 | A.OFFVIS_ITS ---
Intake Intake Visit Reasons: DM Accompanied by: Self / Same As Patient Allergies No Known Allergies Allergy (Verified 12/11/22 08:29) HPI Comprehensive Diabetes Asmnt Most Recent Diabetes Results: No Data to Display [facility] Medical History Diabetes Surgical History Hx of tubal ligation Family History Maternal Grandmother Stomach cancer Maternal Uncle Cancer of unknown origin Maternal Aunt Skin cancer Social History Household Members: Spouse and Children Household Members Other:: Daughter, Alcohol intake: never Patient Tobacco Use Status: Never used Tobacco Assessment & Plan Assessment & Plan (1) Poorly controlled type 2 diabetes mellitus: Code(s): E11.65 - Type 2 diabetes mellitus with hyperglycemia Plan: Learning objectives: The patient was provided with verbal and written education on the following topics as outlined below. The patient met all learning objectives and was able to verbalize understanding and provide teach back of education topics discussed . The patient was provided with the opportunity to ask questions and all questions were answered. Patient Assessment Assess patient education level/literacy/barriers Patient questions/concerns, patient brought glucose meter for download to today's visit. In the past 2 weeks patient is only use glucose meter 3 times. Does 3 readings are all within target glucose Patient's last A1c 6.5 in September 2022, at last visit with Dr. Cameron patient was discharged back to PCP for diabetes care Patient complained that she had pain on her 3rd toe of her right foot. Reports PCP gave referral to Podiatry but valve maker has not contacted her to set up appointment. Patient given list podiatrists Exercise Medical clearance Effect of exercise on blood sugar Start slowly and gradually increase pace/duration over time Goal amount of exercise Checking blood glucose/have a source of carbs with you Medications (If applicable) * Name of medication * Dosing/administration instructions * Mechanism of action * Potential side effects * Potential adverse reaction and appropriate treatment * Review onset, peak, duration Assess for concerns re: insurance coverage, cost, barriers to compliance Insulin/Injectables (If applicable) * Storage/care of insulin * Injection sites * Site rotation * Onset, peak, duration * Drawing up insulin * Injecting insulin/other injectables * Sharps disposal Continuous blood glucose monitoring (if applicable) Hypoglycemia and Hyperglycemia * Signs and symptoms * Causes * Treatment * Preventing hypoglycemia * When to seek medical attention Medical alert bracelet Lifestyle * Work * Travel * Stress management * Problem solving Know your goals * A1C * Blood sugar targets * Blood pressure * Cholesterol/LDL Urine microalbumin Smart Goal Assessment: Patient will bring meter to all diabetes visit Pt met goal:Pt All of the time/100%: New Goal:? Patient will test glucose 1 time daily Educational Materials: The patient was provided with the following written educational materials: Diabetes screening, handout Patient Response to instructions: Comprehension of Instructions: Good Readiness to make changes: Action How confident they feel about making changes: Positive Patient Instructions: Patient will follow-up with underwriter mortgage loan in 3 months Coding Level of Care Code Est Pt Level 1 (52928) Diagnoses Poorly controlled type 2 diabetes mellitus E11.65
== END 2023-01-14 10:35 | disposition home or self-care (01) ==
PROVIDERS: PCP Internal Medicine; Visit Provider Registered Nurse Diabetes Educator
DX: E11.65 Type 2 diabetes mellitus with hyperglycemia (principal)

== ENCOUNTER → 2023-01-14 10:01 | Outpatient (BNVA) | payer MEDICAID, SELFPAY | PROVIDERS: Visit Provider Registered Nurse Diabetes Educator | DX: E11.65 Type 2 diabetes mellitus with hyperglycemia (principal) | CPT/HCPCS: 99211 ==

== ENCOUNTER 2023-03-29 10:53 | Outpatient (REF) | payer MEDICAID, SELFPAY ==
[2023-03-29 13:48] LABS: Alanine Aminotransferase 13 U/L (0-31); Albumin Level 4.1 g/dL (3.5-5.0); Alkaline Phosphatase 79 U/L (39-117); Anion Gap 12 (12-20); Aspartate Amino Transferase 20 U/L (5-31); Bilirubin Total 0.7 mg/dL (0.0-1.0); Blood Urea Nitrogen 11 mg/dL (9-16); Calcium 10.5 mg/dL (8.4-10.2); Carbon Dioxide 26 mmol/L (22-29); Chloride 106 mmol/L (96-108); Estimated Glomerular Filt Rate > 60; Glucose Random 149 mg/dL (60-115); Sodium 140 mmol/L (135-145); Total Protein 7.7 g/dL (6.5-8.0)
== END 2023-03-29 10:54 | disposition home or self-care (01) ==
LOC: HO.HHCL 10:53
PROVIDERS: Visit Provider Internal Medicine
DX: E11.9 Type 2 diabetes mellitus without complications (principal); Z79.4 Long term (current) use of insulin
CPT/HCPCS: 36415; 80053

== ENCOUNTER 2023-04-14 09:55 | Outpatient (AMB) | payer MEDICAID, SELFPAY ==
--- NOTE | 2023-04-14 10:06 | MHC.AMDMED ---
Intake Intake Visit Reasons: DM-CONFIRMED Leasing Representative Required: No Accompanied by: Self / Same As Patient Allergies No Known Allergies Allergy (Verified 12/11/22 08:29) HPI Comprehensive Diabetes Asmnt Most Recent Diabetes Results: Hemoglobin A1c > 14.0 % 07/20/18 Microalb/Creat Ratio 18.8 ug/mg cr 07/17/22 Cholesterol 228 mg/dL 07/27/22 HDL Cholesterol 62 mg/dL 07/27/22 Triglycerides 97 mg/dL 07/27/22 Creatinine 0.69 mg/dL (0.5-1.4) 03/29/23 Blood Urea Nitrogen 11 mg/dL (9-16) 03/29/23 Sodium 140 mmol/L (135-145) 03/29/23 Potassium 4.0 mmol/L (3.3-5.1) 03/29/23 Chloride 106 mmol/L (96-108) 03/29/23 Carbon Dioxide 26 mmol/L (22-29) 03/29/23 Calcium 10.5 mg/dL (8.4-10.2) H 03/29/23 AST 20 U/L (5-31) 03/29/23 ALT 13 U/L (0-31) 03/29/23 Total Protein 7.7 g/dL (6.5-8.0) 03/29/23 Albumin 4.1 g/dL (3.5-5.0) 03/29/23 [facility] Medical History Diabetes Surgical History Hx of tubal ligation Family History Maternal Grandmother Stomach cancer Maternal Uncle Cancer of unknown origin Maternal Aunt Skin cancer Household Members: Spouse and Children Household Members Other:: Daughter, Alcohol intake: never Patient Tobacco Use Status: Never used Tobacco Assessment & Plan Assessment & Plan (1) Poorly controlled type 2 diabetes mellitus: Code(s): E11.65 - Type 2 diabetes mellitus with hyperglycemia Plan: Learning objectives: The patient was provided with verbal and written education on the following topics as outlined below. Assess patient education level/literacy/barriers Patient questions/concerns, patient did not bring meter to today's. Patient reports she tests her blood sugar every 2-3 days today's fasting glucose 91 mg/dL Patient is also overdue for A1c, instructed patient to contact PCP to order next A1c. The patient met all learning objectives and was able to verbalize understanding and provide teach back of education topics discussed . The patient was provided with the opportunity to ask questions and all questions were answered. Topics covered in today?s session included: Medications (If applicable) ? Name of medication? Dosing/administration instructions? Mechanism of action? Potential side effects? Potential adverse reaction and appropriate treatment? Review onset, peak, duration Assess for concerns re: insurance coverage, cost, barriers to compliance ?Blood glucose targets and how you feel when your blood glucose is in and out of your target ranges. ?Monitoring and knowing your A1C. ?What can make blood glucose go up and down and preventing high and low blood glucose. ?Review of blood sugar targets in expected goal range and outside of expected goal range. ?Problem solving and preventing hyper/hypoglycemia. ?Sick day management of diabetes. ?Using blood sugar results in decision making process in managing diabetes. ?Patient was receptive to information provided and participated in the discussion. Asked?appropriate questions and demonstrated good understanding of the topics discussed.? ? Educational Materials: The patient was provided with the following written educational materials: Target Goal handout Patient Response to instructions: Comprehension of Instructions: Readiness to make changes:? How confident they feel about making changes: Patient Instructions: Patient will contact wellness educator if she needs to follow-up after next A1c Coding Level of Care Code Est Pt Level 1 (48000) Diagnoses Poorly controlled type 2 diabetes mellitus E11.65
== END 2023-04-14 10:15 | disposition home or self-care (01) ==
PROVIDERS: PCP Internal Medicine; Visit Provider Registered Nurse Diabetes Educator
DX: E11.65 Type 2 diabetes mellitus with hyperglycemia (principal)

== ENCOUNTER → 2023-04-14 09:55 | Outpatient (BNVA) | payer MEDICAID, SELFPAY | PROVIDERS: PCP Internal Medicine; Visit Provider Registered Nurse Diabetes Educator | DX: E11.65 Type 2 diabetes mellitus with hyperglycemia (principal) | CPT/HCPCS: 99211 ==

== ENCOUNTER 2023-08-23 18:42 | Outpatient (REF) | payer MEDICAID, SELFPAY ==
[2023-08-27 22:14] LABS: HPV mRNA E6/E7 rflx Not Detected (Not Detected)
== END 2023-08-23 18:43 | disposition home or self-care (01) ==
LOC: HO.HHCLNP 18:42
PROVIDERS: Visit Provider Advanced Practice Midwife
DX: Z01.419 Encounter for gynecological examination (general) (routine) without abnormal findings (principal)
CPT/HCPCS: 87624; 88142

== ENCOUNTER 2023-08-24 10:58 | Outpatient (REF) | payer MEDICAID, SELFPAY ==
--- NOTE | ~2023-08-24 | XR_ITS ---
EXAMINATION: XR CERVICAL SPINE CLINICAL INFORMATION: Neck pain. COMPARISON: None available. TECHNIQUE: 6 views of the cervical spine were obtained. FINDINGS: There is straightening of the cervical spine. [id number] degenerative changes are seen with narrowing most marked at C3-C4 with lesser narrowing at C4-C5 C5-C6 and C7-T1. No prevertebral soft tissue swelling, fractures or subluxations are seen. No bony destructive lesions. XR/XR cervical spine 4V IMPRESSION: [id number] degenerative changes in the cervical spine as described above.
== END 2023-08-24 10:59 | disposition home or self-care (01) ==
LOC: HO.XRAY 10:58
PROVIDERS: PCP Internal Medicine; Visit Provider Internal Medicine
DX: M54.2 Cervicalgia (principal)
CPT/HCPCS: 72050

== ENCOUNTER 2023-09-14 10:15 | Outpatient (REF) | payer MEDICAID, SELFPAY ==
[2023-09-14 13:06] LABS: TSH reflex Free T4 0.53 uIU/mL (0.32-4.0)
[2023-09-15 09:49] LABS: Prolactin 4.7 ng/mL
== END 2023-09-14 10:16 | disposition home or self-care (01) ==
LOC: HO.HHCL 10:15
PROVIDERS: Visit Provider Advanced Practice Midwife
DX: N64.3 Galactorrhea not associated with childbirth (principal)
CPT/HCPCS: 36415; 84146; 84443

== ENCOUNTER 2023-10-01 13:22 | Outpatient (REF) | payer MEDICAID, SELFPAY ==
--- NOTE | ~2023-10-01 | MM_ITS ---
EXAMINATION: MM DIAGNOSTIC DIGITAL BREAST TOMOSYNTHESIS, BILATERAL US BREAST LIMITED, BILATERAL CLINICAL INFORMATION: Bilateral diffuse breast pain with clear bilateral nipple discharge x1 year. No palpable lumps. COMPARISON: Mammography: 12/21/2022, 11/20/2022, 10/30/2021, 10/29/2020, 08/01/2019, 05/05/2018, 12/10/2016 TECHNIQUE: Digital breast tomosynthesis is performed in both the craniocaudal and mediolateral oblique views along with computer-aided detection (CAD). Synthesized 2D images are generated from the tomosynthesis. FINDINGS: There are scattered areas of fibroglandular density (ACR BI-RADS breast composition Category b). There are rare scattered benign-appearing calcifications in the anterior breasts bilaterally. There are no suspicious masses, suspicious grouped calcifications, or areas of architectural distortion in either breast. There are small normal-appearing intramammary nodes in the upper outer quadrants of both breasts, unchanged. The parenchymal pattern is stable from prior exams. No retroareolar abnormality is identified on either side. ULTRASOUND: CLINICAL INFORMATION: Bilateral diffuse breast pain with clear bilateral nipple discharge x1 year. No palpable lumps. COMPARISON: 10/29/2020 bilateral. TECHNIQUE: Targeted sonographic evaluation was performed using a high frequency linear transducer. Both breasts were scanned in all 4 quadrants in the retroareolar regions. Selected archived documentation. FINDINGS: RIGHT BREAST: There is a mixture of fatty and fibroglandular tissue. No suspicious mass is seen. There is no pathologic acoustic shadowing. There are no cystic abnormalities. There is no duct ectasia. There is no retroareolar abnormality identified. LEFT BREAST: There is a mixture of fatty and fibroglandular tissue. No suspicious mass is seen. There is no pathologic acoustic shadowing. There are no cystic abnormalities. There is no duct ectasia. There is no retroareolar abnormality identified. MM/MM tomosynthesis diagnostic BI IMPRESSION: There are no findings suspicious for malignancy in either breast. There are no mammographic or sonographic findings to explain bilateral diffuse breast pain in or clear bilateral nipple discharge. Recommend clinical management. Otherwise, recommend patient return to routine annual screening. OVERALL ASSESSMENT: Mammography: BI-RADS 2 - Benign Findings Ultrasound: BI-RADS 2 - Benign Findings RECOMMENDATION: 1. Patient should be managed based on the clinical impression. 2. Otherwise, routine annual screening mammography. This patient's information was entered into a reminder system with a target due date for their next mammogram.
== END 2023-10-01 13:23 | disposition home or self-care (01) ==
LOC: HO.MAMMO 13:22
PROVIDERS: PCP Internal Medicine; Visit Provider Advanced Practice Midwife
DX: N64.3 Galactorrhea not associated with childbirth (principal); N64.4 Mastodynia
CPT/HCPCS: 76642; 77062; 77066

== ENCOUNTER → 2023-10-01 13:30 | Outpatient (BNV) | payer MEDICAID, SELFPAY | PROVIDERS: PCP Internal Medicine; Visit Provider Radiology Diagnostic Radiology | DX: N64.4 Mastodynia (principal) | CPT/HCPCS: 76642; 77062; 77066 ==

== ENCOUNTER 2023-12-30 09:59 | Outpatient (REF) | payer MEDICAID, SELFPAY ==
--- NOTE | ~2023-12-30 | US_ITS ---
EXAMINATION: US THYROID CLINICAL INFORMATION: Enlarged thyroid. COMPARISON: None available. TECHNIQUE: Linear transducer grayscale and color Doppler examination with attention to the region of the thyroid. FINDINGS: SIZE: Measurements of the thyroid lobes and nodules are given in sagittal, anteroposterior and transverse dimensions respectively. Right Thyroid Lobe: 5.8 x 2.1 x 2.6 cm, volume 16.4 mL. Parenchyma: The gland echotexture is heterogeneous. Thyroid vascularity is normal. Left Thyroid Lobe: 5.9 x 2.1 x 2.3 cm, volume 14.6 mL. Parenchyma: The gland echotexture is heterogeneous. Thyroid vascularity is normal. Isthmus: 0.5 cm in maximum AP dimension. Estimated total number of nodules greater than or equal to 1 cm: 1. Food And Beverage Checker nodules are described as follows: 1. Location: Right superior. Size: 0.4 x 0.3 x 0.5 cm, volume 0.03 mL. Nodule characteristics: Composition: Spongiform (0). ACR TI-RADS total points: 0 ACR TI-RADS category: 1 2. Location: Right mid. Size: 1.0 x 0.6 x 0.7 cm, volume 0.24 mL. Nodule characteristics: Composition: Solid (2). Echogenicity: Hypoechoic (2). Shape: Not taller than wide (0). Margins: Ill-defined (0). Echogenic Foci: None (0). ACR TI-RADS total points: 4 ACR TI-RADS category: 4 3. Location: Right inferior. Size: 0.9 x 0.6 x 0.8 cm, volume 0.23 mL. Nodule characteristics: Composition: Solid (2). Echogenicity: Hypoechoic (2). Shape: Not taller than wide (0). Margins: Smooth (0). Echogenic Foci: None (0). ACR TI-RADS total points: 4 ACR TI-RADS category: 4 4. Location: Left superior. Size: 0.5 x 0.3 x 0.5 cm, volume 0.04 mL. Nodule characteristics: Composition: Spongiform (0). ACR TI-RADS total points: 0 ACR TI-RADS category: 1 5. Location: Left mid. Size: 0.6 x 0.5 x 0.6 cm, volume 0.08 mL. Nodule characteristics: Composition: Cystic(0). ACR TI-RADS total points: 0 ACR TI-RADS category: 1 NODES: No lymphadenopathy is seen in the tissue surrounding the thyroid gland. US/US thyroid IMPRESSION: Diffusely enlarged, heterogeneous multinodular thyroid gland. Largest thyroid nodule 1.0 cm right mid and 0.9 cm right lower TR 4. Recommend follow up ultrasound in 12 months. ACR TI-RADS RECOMMENDATION REFERENCE: Ultrasound-guided fine-needle aspiration, followup ultrasound, no further follow up. * TR1 (0 point) and TR2 (2 points): No FNA or follow up. * TR3 (3 points): FNA if more than or equal to 2.5 cm in maximum dimension, followup ultrasound in 1, 3 and 5 years if 1.5 to 2.4 cm in maximum dimension. * TR4 (4-6 points): FNA if more than or equal to 1.5 cm in maximum dimension, followup ultrasound in 1, 2, 3 and 5 years if 1 to 1.4 cm in maximum dimension. * TR5 (more than or equal to 7 points): FNA if more than or equal to 1 cm in maximum dimension, followup ultrasound every year for 5 years if 0.5 to 0.9 cm in maximum dimension. * TR3, TR4 or TR5 nodules that are below the size threshold for followup receive no follow up.
== END 2023-12-30 10:00 | disposition home or self-care (01) ==
LOC: HO.US 09:59
PROVIDERS: PCP Internal Medicine; Visit Provider Internal Medicine
DX: E04.9 Nontoxic goiter, unspecified (principal)
CPT/HCPCS: 76536

== ENCOUNTER 2024-01-06 10:37 | Outpatient (AMB) | payer MEDICAID, SELFPAY ==
--- NOTE | 2024-01-06 10:49 | MHC.OFFVIS ---
Vital Signs 01/06/24 10:50 Height 5 ft 3 in Weight 175 lb 7.807 oz BMI 31.1 BP 124/76 Blood Pressure Location Lt brachial Position Sitting Pulse 86 Pulse Source Pulse Oximeter Intake Visit Reasons: Enlarged thyroid gland Intake Note: Patient present today for enlarged thyroid gland follow up visit. Deployment Specialist Required: Yes Deployment Specialist Language: Narrative Writer Services: Deployment Specialist Present Deployment Specialist Name: Samuel Information Interpreted: non-clinical & clinical Accompanied by: Self / Same As Patient Allergies No Known Allergies Allergy (Verified 01/06/24 10:53) Medication List - Last Reconciled 01/06/24 by Brenda Elizondo MD aspirin (Adult Low Dose Aspirin) 81 mg PO DAILY metformin 1,000 mg PO HPI Comments Details: 58 years old female coming in today for initial evaluation of thyroid nodules. Also was previously seen in our office for right adrenal nodule by Dr. Cameron, last visit October 2023. Thyroid nodules Found to have multiple thyroid nodules on US in december 2023 Multiple bilateral nodules noted, largest 1 on the right side measuring 1 cm. Otherwise subcentimeter nodules. Patient currently denies heat or cold intolerance, diarrhea or constipation, hair loss, palpitation, anxiety, weight changes, mood changes, low energy, changes in appearance of eyes or vision changes, tremors, increased diaphoresis or dry skin. ?She does have post menopausal hot flashes. Patient endorses difficulty swallowing for the last 2 years both with liquids and solids and sometimes saliva getting stuck, has barium swallow study in December 2022 which was normal , waiting for ENT evaluation. Denies pain on swallowing or voice changes or difficulty breathing. Patient denies any history of childhood neck radiation. Denies having ever used lithium, amiodarone or biotin supplements. Patient denies any family history of thyroid cancer. Mother has some thyroid disease. she is not sure what but not cancer. TSH August 2023 normal 0.53 Right adrenal adenoma Patient also has a history of right adrenal gland nodule measuring 2.1 cm, five Hounsfield units. Diagnosed in February 12. Greater than 50% washout consistent with lipid rich adenoma. Initial workup from 07/2022 showed-1 mg dex suppression test with dexamethasone level of 232, cortisol level of 1 mcg/dL. DHEA-S 27. Normal metanephrine and normetanephrine levels. Patient does not have history of hypertension or hypokalemia, hence was not screen for primary hyperaldosteronism. Patient denies any history of weight gain, easy bruising, proximal muscle weakness, no abdominal striae. She denies any history of fractures, no history of osteoporosis. Diabetes is very well controlled on metformin. No excessive hair growth. Review of systems Constitutional: no fevers, chills or weight loss HEENT: no changes in vision Cardiac: No chest pain, discomfort or palpitations. Pulmonary: No SOB GI:No abdominal pain, no nausea or vomiting, no anorexia, no blood in stool : no burning micturition, dysuria or increase in urinary frequency Neurologic: No dizziness, no weakness in extremities MSK: no back pain or joint stiffness Physical exam General: sitting comfortably in bed in no acute distress HEENT: normocephalic/atraumatic, EOM intact, moist oral mucosa Neck: supple, symmetrical, no thyromegaly , no dorsocervical or supraclavicular fat pads Cardiac: normal heart sounds Pulm: normal breath sounds B/L, no added breath sounds Abd: not distended, no tenderness Extremities: no edema, no signs of myxedema Neuro: AAO x3, Speech: normal, no facial droop, moving all 4 extremities Skin: no rash Foot exam: intact sensation to monofilament, intact pulses, intact vibration PFSH Medical History (Updated 01/06/24 @ 11:26 by Brenda Elizondo MD) Multinodular goiter Diabetes Surgical History Hx of tubal ligation Family History Maternal Grandmother Stomach cancer Maternal Uncle Cancer of unknown origin Maternal Aunt Skin cancer Social History Household Members: Spouse and Children Household Members Other:: Daughter, Alcohol intake: never Patient Tobacco Use Status: Never used Tobacco Physical Exam Vital Signs: Last Vital Signs Pulse 86 01/06/24 10:50 BP 124/76 01/06/24 10:50 BMI result Body Mass Index 31.1 Results Reviewed Results Reviewed: Laboratory Tests 07/17/22 07/23/22 09/14/23 12:41 08:05 10:16 TSH 0.53 DHEA Sulfate 27 Random Cortisol 13.3 1.0 Plasma Free Metaneph 31 Plasma Free Normeta 111 Plas Total Metaneph 142 Dexamethasone [address] [place] [id number] Ultrasound Report Signed Patient: Aaliyah Luu MR#: [id number] : 1965 Acct:[id number] Age/Sex: 58 / F ADM Date: 12/30/23 Loc: HO.US Attending Dr: Johnny Banuelos MD Ordering Physician: Johnny Banuelos MD Date of Service: 12/30/23 Procedure(s): US thyroid Accession Number(s): [id number] cc: Johnny Baneulos MD~ EXAMINATION: US THYROID 01/14 CLINICAL INFORMATION: Enlarged thyroid. COMPARISON: None available. TECHNIQUE: Linear transducer grayscale and color Doppler examination with attention to the region of the thyroid. FINDINGS: SIZE: Measurements of the thyroid lobes and nodules are given in sagittal, anteroposterior and transverse dimensions respectively. Right Thyroid Lobe: 5.8 x 2.1 x 2.6 cm, volume 16.4 mL. Parenchyma: The gland echotexture is heterogeneous. Thyroid vascularity is normal. Left Thyroid Lobe: 5.9 x 2.1 x 2.3 cm, volume 14.6 mL. Parenchyma: The gland echotexture is heterogeneous. Thyroid vascularity is normal. Isthmus: 0.5 cm in maximum AP dimension. Estimated total number of nodules greater than or equal to 1 cm: 1. Lacquer Mixer nodules are described as follows: 1. Location: Right superior. Size: 0.4 x 0.3 x 0.5 cm, volume 0.03 mL. Nodule characteristics: Composition: Spongiform (0). ACR TI-RADS total points: 0 ACR TI-RADS category: 1 2. Location: Right mid. Size: 1.0 x 0.6 x 0.7 cm, volume 0.24 mL. Nodule characteristics: Composition: Solid (2). Echogenicity: Hypoechoic (2). Shape: Not taller than wide (0). Margins: Ill-defined (0). Echogenic Foci: None (0). ACR TI-RADS total points: 4 ACR TI-RADS category: 4 3. Location: Right inferior. Size: 0.9 x 0.6 x 0.8 cm, volume 0.23 mL. Nodule characteristics: Composition: Solid (2). Echogenicity: Hypoechoic (2). Shape: Not taller than wide (0). Margins: Smooth (0). Echogenic Foci: None (0). ACR TI-RADS total points: 4 ACR TI-RADS category: 4 4. Location: Left superior. Size: 0.5 x 0.3 x 0.5 cm, volume 0.04 mL. Nodule characteristics: Composition: Spongiform (0). ACR TI-RADS total points: 0 ACR TI-RADS category: 1 5. Location: Left mid. Size: 0.6 x 0.5 x 0.6 cm, volume 0.08 mL. Nodule characteristics: Composition: Cystic(0). ACR TI-RADS total points: 0 ACR TI-RADS category: 1 NODES: No lymphadenopathy is seen in the tissue surrounding the thyroid gland. CT abd Feb 2022 OMPARISON: Previous CT of the abdomen and pelvis January 2022 TECHNIQUE: Contiguous axial thin section helical images of the abdomen were performed before and after the administration of oral contrast and 85 mL of Omnipaque 350 intravenous contrast. The data set was reformatted in the coronal and sagittal planes and reviewed on an independent workstation. This CT examination was performed using dose optimization techniques as appropriate, variously including the following: *Automated exposure control *Adjustment of mA and/or kV according to patient size (this includes techniques or standardized protocols for targeted exams where dose is matched to indication/reason for exam; i.e. extremities or head) *Use of iterative reconstruction technique DLP: 431 mGy-cm FINDINGS: LUNG BASES: There is increased attenuation in the peripheral or subpleural left lower lobe adjacent to bony osteophyte probably representing atelectasis. The visualized lung bases are otherwise clear. LIVER, GALLBLADDER, AND BILIARY TREE: There is a small 5 mm low-attenuation lesion in the medial segment of the left lobe of the liver probably representing a cyst. There are other smaller liver lesions difficult to characterize but may represent cysts as well. The liver is otherwise normal. There is a gallstone in the gallbladder. There is no biliary duct dilatation. PANCREAS: Normal SPLEEN: Normal ADRENAL GLANDS AND KIDNEYS: There is a 2.1 x 1.6 cm low-attenuation right adrenal lesion. Hounsfield units without contrast measure 5. Hounsfield units immediately post IV contrast measure 80. Delayed Hounsfield units following IV contrast measure 32. This is suggestive of a benign lipid rich adenoma. BOWEL LOOPS: Normal LYMPH NODES: Normal. VASCULAR: Unremarkable. BONES: Mild degenerative changes of the spine. CT/CT abdomen wo/w IV con IMPRESSION: 2.1 x 1.6 cm low-attenuation right adrenal lesion suggestive of a benign lipid rich adenoma. Gallstone. Probable liver cysts. Fleischner guidelines were followed. Assessment & Plan Assessment & Plan (1) Multinodular goiter: Code(s): E04.2 - Nontoxic multinodular goiter Category: Medical Plan: 58-year-old female coming in today for initial evaluation of thyroid nodules. No family history of thyroid cancer, no personal history of head or neck radiation. Noted to have bilateral thyroid nodules. The largest 1 on the right side is measuring 1 cm. All others are subcentimeter in size. I explained that it is common to have thyroid nodules. About 95% of the time these nodules are benign. However if the nodule is > 1 cm in size or suspicious on ultrasound then a fine need aspiration biopsy is recommended. However at this time none of her thyroid nodules meet criteria for biopsy. At this time I would recommend repeating a thyroid ultrasound in 12 months from the last thyroid ultrasound which would be in December of 2024. She has no symptoms of compression or hypo or hyperthyroidism. TSH was normal from 09/11/2023 at 0.53. Plan: -repeat thyroid ultrasound in December of 2024 -repeat free T4 and TSH prior to next visit in 1 year (2) Adrenal benign tumor: Code(s): D35.00 - Benign neoplasm of unspecified adrenal gland Category: Medical Plan: Patient has history of 2.1 cm lipid rich right adrenal adenoma. Five Hounsfield units. Diagnosed in January of 2022. We did not screen her for primary hyperaldosteronism as she is not hypertensive and does not have history of hypokalemia. 1 mg dexamethasone suppression test from July of 2022 was negative. Cortisol level was 1, dexamethasone level was appropriate. She also had normal metanephrine and normetanephrine levels. While some guidelines for example AACE recommends repeating a 1 mg dexamethasone suppression test yearly for 5 years, at this time patient does not have any features of [place]'s, and there is some literature which advises to use clinical judgment for this. At this time I would hold off on repeating 1 mg dexamethasone suppression test. If patient has any features of hypercortisolism in the future, this test can be repeated suggest weight gain, resting of diabetes, development of hypertension, osteoporosis/fracture, depression. It is also recommended to repeat imaging in 12 months from initial diagnosis. She did not have a repeat CT scan. At this time I will order repeat CT scan of her adrenals to ensure there is no growth in size. If the nodule remains stable in size, there is no need for repeat imaging. Plan: -ordered CT scan of the adrenals Plan See above Orders: Orders US thyroid 1 Year E04.2 - Nontoxic multinodular goiter Thyroid Stimulating Hormone 1 Year E04.2 - Nontoxic multinodular goiter Free T4 (Free Thyroxine) 1 Year E04.2 - Nontoxic multinodular goiter CT adrenal wo/w IV con Today D35.00 - Benign neoplasm of unspecified adrenal gland Patient Instructions: Do CT scan of abdomen now Do thyroid Ultrasound in 1 year Do thyroid labs meaning blood work in 1 year Follow up in 1 year Realice juhi tomograf?a computarizada del abdomen ahora Hacer ultrasonido de tiroides en 1 a?o. Hacer laboratorios de tiroides, lo que significa an?lisis de brett en 1 a?o. Seguimiento en 1 a?o Coding Level of Care Code Est Pt Level 4 (57927) Diagnoses Multinodular goiter E04.2 Adrenal benign tumor D35.00
[2024-01-06 10:50] VITALS: BP 124/76; PULSE 86; BMI 31.1
== END 2024-01-06 11:40 | disposition home or self-care (01) ==
PROVIDERS: PCP Internal Medicine; Visit Provider Student in an Organized Health Care Education/Training Program
DX: E04.2 Nontoxic multinodular goiter (principal); D35.00 Benign neoplasm of unspecified adrenal gland
CPT/HCPCS: 99214

== ENCOUNTER → 2024-01-06 10:37 | Outpatient (BNVA) | payer MEDICAID, SELFPAY | PROVIDERS: PCP Internal Medicine; Visit Provider Student in an Organized Health Care Education/Training Program | DX: E04.2 Nontoxic multinodular goiter (principal); D35.00 Benign neoplasm of unspecified adrenal gland | CPT/HCPCS: 99212 ==

== ENCOUNTER 2024-03-07 08:06 | Outpatient (REF) | payer MEDICAID, SELFPAY ==
--- NOTE | ~2024-03-07 | CT_ITS ---
. EXAMINATION: CT ADRENAL WITHOUT AND WITH IV CONTRAST. CLINICAL INFORMATION: Adrenal mass. COMPARISON: CT abdomen dated March 17, 2022. TECHNIQUE: Contiguous axial thin section helical images of the abdomen were performed before and after the administration of 85 cc Omnipaque 350 strength of contrast without reported immediate complications. The data set was reformatted in the coronal and sagittal planes and reviewed on an independent workstation. This CT examination was performed using dose optimization techniques as appropriate, variously including the following: Automated exposure control Adjustment of MA and/or KV according to patient size Use of interactive reconstruction technique. DLP: 339 mGy per centimeter. FINDINGS: Submitted for interpretation on April 26, 2024. Right adrenal gland: There is a well-defined 2.2 cm ovoid shaped low density nodule which measures 5 Hounsfield units delayed non-IV contrast component. Left adrenal gland: No nodular lesions. Liver measures 16 cm. There is a 3 mm low density in the right hepatic lobe too small to be fully characterized. Portal veins, hepatic veins and intrahepatic portion of the IVC are patent. There is a focal intraluminal calcification in the gallbladder. No pericholecystic fluid collection or gallbladder wall thickening. No intrahepatic or extrahepatic biliary ductal dilatation. No focal pancreatic mass or peripancreatic fluid collection. No main pancreatic ductal dilatation. Spleen measures 10 cm. No focal mass. The kidneys demonstrate normal enhancement pattern without renal mass or hydronephrosis. No nephrolithiasis. No intestinal obstruction pattern. Abundant stool. No ascites. No pneumoperitoneum. No pneumatosis intestinalis. I do not see the appendix. No aneurysm or dissection, abdominal aorta. Nonspecific mildly prominent mesenteric lymph nodes. Diastases abdominal rectus muscles in the periumbilical region. Multilevel thoracolumbar spondylosis. No acute fracture or gross listhesis. CT/CT adrenal wo/w IV con IMPRESSION: 2.2 cm lipid rich adenoma, right adrenal gland. Cholelithiasis. Electronically signed by: Skyler Barlow MD 04/26/2024 12:40 PM KEI
[2024-03-07] MEDS: iohexoL 350 MG/ML 100 ML INFUS..BTL IV (09:02)
[2024-03-07 11:34] LABS: Creatinine POC 0.7 mg/dL (0.5-1.4); GFR POC > 60
== END 2024-03-07 08:07 | disposition home or self-care (01) ==
LOC: HO.CT 08:06
PROVIDERS: PCP Internal Medicine; Visit Provider Student in an Organized Health Care Education/Training Program
DX: D35.00 Benign neoplasm of unspecified adrenal gland (principal)
CPT/HCPCS: 74170; 82565; Q9967

== ENCOUNTER → 2024-03-07 08:06 | Outpatient (BNV) | payer MEDICAID, SELFPAY | PROVIDERS: PCP Internal Medicine; Visit Provider Radiology Diagnostic Radiology | DX: D35.00 Benign neoplasm of unspecified adrenal gland (principal) | CPT/HCPCS: 74170 ==

== ENCOUNTER 2024-08-15 11:45 | Outpatient (REF) | payer MEDICAID, SELFPAY ==
--- NOTE | ~2024-08-15 | XR_ITS ---
EXAMINATION: XR LUMBOSACRAL SPINE CLINICAL INFORMATION: low back pain COMPARISON: July 06, 2014 TECHNIQUE: Three views of the lumbosacral spine. FINDINGS: Endplate sclerosis decreased intervertebral disc height marginal osteophyte formation at T10-11, L1-2 and L2-3 levels. Syndesmophyte formation T10-11. No acute cortical disruption or malalignment. No lytic or lytic lesions. XR/XR lumbar spine 2-3V IMPRESSION: Multilevel thoracolumbar spondylosis involving mostly T10-11, L1-2 and L2-3 levels. Electronically signed by: Skyler Barlow MD 08/16/2024 07:06 AM EDT
[2024-08-15 13:35] LABS: Appearance Urine Clear; Color Urine Yellow; Glucose Urine UA Negative (Negative); Leukocyte Esterase Urine Moderate (2+) (Negative); Nitrite Urine Negative (Negative); Specific Gravity - Urine 1.015 (1.005-1.025); UMIC TRIGGER UACC YES; Urine Blood Negative (Negative); Urine Ketones Negative (Negative); Urine Protein Negative (Neg-Trace)
[2024-08-15 13:43] LABS: Anion Gap 11 (12-20); Blood Urea Nitrogen 10 mg/dL (9-16); Carbon Dioxide 25 mmol/L (22-29); Chloride 108 mmol/L (96-108); Estimated Glomerular Filt Rate > 60; Glucose Random 157 mg/dL (60-115); Potassium 3.9 mmol/L (3.3-5.1); Sodium 140 mmol/L (135-145)
[2024-08-15 13:44] LABS: MANUAL DIFF FLAG NO
[2024-08-15 13:50] LABS: Basophils Percent Auto 0.7 % (0-2); Eosinophils Absolute Auto 0.2 X10*3/uL (0.0-0.4); Eosinophils Percent Auto 2.7 % (0-4); Hemoglobin 11.1 g/dl (12.0-16.0); Imm Gran Abs Auto 0.02 X10*3/uL (0.00-0.03); Imm Gran Pct Auto 0.3 % (0.0-0.4); Lymphocytes Absolute Auto 2.1 X10*3/uL (1.2-4.9); Lymphocytes Percent Auto 34.2 % (20-40); Mean Corpuscular HGB Conc 33.6 g/dl (31.0-35.0); Mean Corpuscular Hemoglobin 27.5 pg (27.0-33.0); Mean Corpuscular Volume 81.7 fL (80.0-98.0); Mean Platelet Volume 10.4 fL (9.4-12.3); Monocytes Absolute Auto 0.5 X10*3/uL (0.1-1.2); Monocytes Percent Auto 7.8 % (2-11); Neutrophils Absolute Auto 3.3 x10*3/uL (2.0-8.3); Neutrophils Percent Auto 54.3 % (45-73); Platelet Count 278 X10*3/uL (160-400); Red Blood Count 4.04 X10*6/uL (4.20-5.50); Red Cell Distribution Width 14.9 % (11.0-16.0)
[2024-08-15 13:56] LABS: Bacteria Urine None Seen (None Seen); Hyaline Casts Urine 0-2 /LPF (0-2); RBC Urine 0-2 /HPF (0-2); Squamous Epithelial Cell Urine 0-2 /HPF (0-2); UACC Culture Trigger YES; WBC Urine 0-5 /HPF (0-5)
--- OUTSIDE RECORDS SUMMARY | 2024-08-15 14:34 | XMS_ITS | Encounter Summary ---
Demographics Address [address] [place] [address] Work Phone Mobile Phone Preferred Language es Marital Status Jehovah'S Witness Affiliation Unknown Race White Ethnic Group or Author Organization [employer] Address [address] [place] [address] Care Team Providers Care Gem Carver Name Role Phone Johnny Galvan MD Primary Care Provide r Reason for Visit * Reason Onset Date Comments Chart Prep 08/02/2024 Encounter Details Date Type Department Care Team ([facility] st Contact Info) Description 08/02/[address] [facility] [address] [place], [place] [phone] Johnny Galvan MD [address] [place], [place] [phone] Chart Prep Social History Tobacco Use Types Packs/Day Years Used Date Smoking Tobacco: Never Passive Smoke Exposure: Never Smokeless Tobacco: Never Alcohol Use Standard Drinks/Week Comments Never 0 (1 standard drink = 0.6 oz pur e alcohol) Depression Answer Date Recorded Patient Health Questionnaire-9 Score 0 12/09/2023 Patient Health Questionnaire-9 Score 0 12/09/2023 Last PHQ-9: Questionnaire Data Not on file 0 12/09/2023 Housing Stability Answer Date Recorded What is your housing situation today? I have jonathon mora 12/09/[address] you li ve. Do you have problems with any of the following? None of the above 12/09/2023 Food Insecurity Answer Date Recorded Within the past 12 months, y ou worried that your food would run out before you got money to buy more: Never True 12/09/2023 Within the past 12 months,th e food you bought just didn't last and you didn't have enough money to get more: Never True Transportation Answer Date Recorded In the past 12 months, has l ack of transportation kept you from medical appts, meetings, work or from getting things needed for daily living? No 12/09/2023 Utilities Answer Date Recorded In the past 12 months, has t he electric, gas, oil or water company threatened to shut off services in your home? No 12/09/2023 Depression Answer Date Recorded Patient Health Questionnaire-2 Score 0 12/09/2023 Internet Access Answer Date Recorded Internet Access Q1 Yes 01/24/2024 Internet Access Q2 Not on file 01/24/2024 Comments No Sex and Gender Information Value Date Recorded Sex Assigned at Female 03/23/2022 10:19 AM EDT Legal Sex Female 10:19 AM EDT Gender Identity Choose not to disclose 10:19 AM EDT Sexual Orientation Straight 03/23/2022 10 :19 AM EDT documented as of this encounter Miscellaneous Notes * Telephone Encounter - Lana Ansari [place] - 08/02/2024 2:54 PM EDT Chart Prep Labs: not done Images: not applicable Vaccines due: Covid Due, Hep B Due, PCV20 Due, Flu Due, and Shingles in pharmacy Due Referrals: Radiology Requested notes by Fax. Waiting for notes. Screenings: Colonoscopy , Eye Exam, Foot Exam, and HIV screening Overdue care gaps: A1C and Glucose Pt has Endocrinology appt on 01/05/2025 @11AM. Chart prep for upcoming appt with Dr.Esparza elliott. LB documented in this encounter Plan of Treatment Not on file documented as of this encounter Visit Diagnoses Not on filedocumented in this encounter Additional Health Concerns Assessment Noted Time PHQ-9 Depression Total Score: 0 12/09/19 24 9:05 AM EDT documented as of this encounter Care Teams Gem Carver Relationship Specialty Start Date End Date Johnny Galvan MD [address] [place] [address] PCP - General Internal Medicine 04/26/18 documented as of this encounter
--- OUTSIDE RECORDS SUMMARY | 2024-08-15 14:34 | XMS_ITS | Encounter Summary ---
Demographics Address [address] [place] [address] Work Phone Mobile Phone Preferred Language es Marital Status Taoist Affiliation Unknown Race White Ethnic Group or Author Organization [employer] Address [address] [place] [address] Care Team Providers Care Professor Of Latin American Studies Name Role Phone Johnny Galvan MD Primary Care Provide r Reason for Visit * Reason Comments Pre-visit Planning SDOH Screening negat alessandro and Tobacco screening negative Encounter Details Date Type Department Care Team ([facility] st Contact Info) Description 08/07/2024 Patient Outreach [facility] [address] [place] [address] Johnny Galvan MD [address] [place] [address] Pre-visit Planning (SDOH Screening negative and Tobacco screening negative) Social History Tobacco Use Types Packs/Day Years [...] AM EDT documented as of this encounter Progress Notes * Yudelka Sam - 08/07/2024 11:00 AM EDT CC Yudelka Díaz placed successful outbound call to patient for pre-visit planning. Patient name and confirmed. Patient confirms appt date and time, and has transportation arrangements. Biggest concern for appointment at this time is lower back pain. . Patient educated on extended clinic hours on Mondays and Wednesdays, and Walk-In Urgent Care Located in [facility]. Patient advised to bring to appointment a photo id and insurance card. Appropriate screenings completed in anticipation of appointment. documented in this encounter Plan of Treatment Not on file documented as of this encounter Visit Diagnoses Not on filedocumented in this encounter Additional Health Concerns Assessment Noted Time PHQ-9 Depression Total Score: 0 12/09/19 24 9:05 AM EDT documented as of this encounter Care Teams Professor Of Latin American Studies Relationship Specialty Start Date End Date Johnny Galvan MD [address] [place] [address] PCP - General Internal Medicine 04/26/18 documented as of this encounter
--- OUTSIDE RECORDS SUMMARY | 2024-08-15 14:34 | XMS_ITS | Encounter Summary ---
Author Organization [employer] Address [address] [facility] [address] [place] [address] Care Team Providers Care Sleep Technologist Name Role Phone Johnny Galvan MD Primary Care Provide r Reason for Referral * Imaging (Urgent) - Authorized Specialty Diagnoses / Procedures Referred By Maryanne t Referred To Contact Radiology Diagnoses Bilateral mastodynia Procedures BI US Breast Limited Right Martha Tapia CNM [address] [place] [address] Phone: tel: fax: [address] Phone: tel: fax: Referral ID Status Reason Start Date Expiration Date V isits Requested Visits Authorized [id number] Authorized 07/26/2024 07/26/2025 1 1 * Imaging (Urgent) - Authorized Specialty Diagnoses / Procedures Referred By Contac t Referred To Contact Radiology Diagnoses Bilateral mastodynia Procedures BI US Breast Limited Left Martha Tapia CNM [address] [place] [address] Phone: tel: fax: [address] Phone: tel: fax: Referral ID Status Reason Start Date Expiration Date V isits Requested Visits Authorized [id number] Authorized 07/26/2024 07/26/2025 1 1 * Imaging (Urgent) - Authorized Specialty Diagnoses / Procedures Referred By Maryanne jones Referred To Contact Radiology Diagnoses Bilateral mastodynia Procedures BI Mammogram Diagnostic Tomosynthesis Bilateral Martha Tapia CNM [address] [place] [address] Phone: tel: fax: [address] Phone: tel: fax: Referral ID Status Reason Start Date Expiration Date V isits Requested Visits Authorized [id number] Authorized 07/26/2024 07/26/2025 1 1 Reason for Visit * Reason Comments Gynecologic Exam Encounter Details Date Type Department Care Team (Latest Contact Info) Description 07/26/2024 10:30 AM EST Procedure Visit [facility] [address] [place] [address] Martha Tapia CNM [address], [place] [phone] Stress incontinence (Primary Dx); Bilateral mastodynia; Visit for pelvic exam Social History Tobacco Use Types Packs/Day Years [...] AM EDT documented as of this encounter Last Filed Vital Signs Vital Sign Reading Time Taken Comments Blood Pressure 150/81 07/26/2024 10:25 AM EST Pulse 93 07/26/2024 10:25 AM EST Temperature 35.8 ??C (96.4 ??F) 07/26/2024 10:[address] Respiratory Rate 20 07/26/2024 10:25 AM EST Oxygen Saturation 98% 07/26/2024 10:25 AM EST Inhaled Oxygen Concentration - - Weight 78.7 kg (173 lb 6.4 oz) 07/26/2024 10:25 AM EST Height 160 cm (5' 3 ) 07/26/2024 10:25 AM EST Body Mass Index 30.72 07/26/2024 10:25 AM EST documented in this encounter Progress Notes * Martha Tapia CNM - 07/26/2024 10:30 AM EST Subjective Patient ID: Aaliyah Luu is a 59 y.o. adult who presents for [employer] visit Pap NIL/HPV neg 08/2023. Pap NIL/HPV neg 04/2018. Normal TSH/Prl last year, hx bilateral galactorrhea, mammogram BIRADS 2 ,cat b 09/2023. Notes some bilateral breast tenderness recently, no further galactorrhea. Not sexually active. Declined hemorrhoidectomy, does note occasional blood when wiping. No vaginal symptoms. Notes some stress urinary incontinence. Vasomotor symptoms manageable. No personal fracture. Menopausal around 51, no bleeding since then. Patient seen in conjunction with Katelyn Acuna, [place] student. I was present for and confirmed all pertinent elements in the history, exam, assessment of the patient, and the plan of care, and agree with all findings. Review of Systems Gastrointestinal: Positive for anal bleeding. Genitourinary: Negative for dysuria, frequency, genital sores, hematuria, menstrual problem, pelvicpain, urgency, vaginal bleeding, vaginal discharge and vaginal pain. No abnormal pap, no abnormal bleeding, no breast pain, no breast mass, no nipple discharge Objective BP (!) 150/81 (BP Location: Left arm, Patient Position: Sitting, BP Cuff Size: Large adult) Pulse93 Temp 96.4 ??F (35.8 ??C) (Temporal) Resp 20 Ht 5' 3 (1.6 m) Wt 173 lb 6.4 oz (78.7 kg) SpO2 98% BMI 30.72 kg/m?? Physical Exam Exam conducted with a skirt maker present (Martha Tapia CNM). Constitutional: Appearance: Normal appearance. Chest: Breasts: Right: Tenderness present. No swelling, bleeding, inverted nipple, mass, nipple discharge or skin change. Left: Tenderness present. No swelling, bleeding, inverted nipple, mass, nipple discharge or skin change. Comments: Bilateral tenderness inner aspects of both breasts Genitourinary: General: Normal vulva. Labia: Right: No rash, tenderness, lesion or injury. Left: No rash, tenderness, lesion or injury. Vagina: Normal. No signs of injury and foreign body. No vaginal discharge, erythema, tenderness, bleeding or lesions. Cervix: No cervical motion tenderness, discharge, friability, lesion, erythema, cervical bleeding or eversion. Uterus: Normal. Not enlarged and not tender. Adnexa: Right adnexa normal and left adnexa normal. Right: No mass, tenderness or fullness. Left: No mass, tenderness or fullness. Rectum: External hemorrhoid present. Comments: Ovaries non palpable bilaterally. Good tone with Kegels, cystocele with Valsalva External hemorrhoids with ulceration Lymphadenopathy: Upper Body: Right upper body: No supraclavicular or axillary adenopathy. Left upper body: No supraclavicular or axillary adenopathy. Neurological: Mental Status: She is alert. Psychiatric: Mood and Affect: Mood normal. Behavior: Behavior normal. Assessment/Plan Diagnoses and all orders for this visit: Stress incontinence Kegels taught for stress incontinence. Let me know if not helpful in next 1-2m and I will refer to urogyn. Bilateral mastodynia Newer onset. Will order ultrasound with dx mammogram. Visit for pelvic exam Pap/HPV 2028 BMD at 66. Report vaginal bleeding. Feels she is managing okay with vasomotor symptoms and hemorrhoids. Advised to followup if vasomotor symptoms more bothersome. Would advise visit with Dr. Augustin to discuss options for hemorrhoids further. documented in this encounter Plan of Treatment Scheduled Orders Name Type Priority Associated Diagnoses Orde r Schedule BI Mammogram Diagnostic Tomosynthesis Bilateral Imaging Urgent Bilateral mastodynia Expected: 07/26/2024, Expires: 09/25/2025 BI US Breast Limited Left Imaging Urgent Bilateral mastodynia Expected: 07/26/2024, Expires: 09/25/2025 BI US Breast Limited Right Imaging Urgent Bilateral mastodynia Expected: 07/26/2024, Expires: 09/25/2025 documented as of this encounter Visit Diagnoses Diagnosis Stress incontinence- Primary Female stress incontinence Bilateral mastodynia Visit for pelvic exam documented in this encounter Additional Health Concerns Assessment Noted Time PHQ-9 Depression Total Score: 0 12/09/19 24 9:05 AM EDT documented as of this encounter Care Teams Sleep Technologist Relationship Specialty Start Date End Date Johnny Galvan MD [address] [place] [id number] PCP - General Internal Medicine 04/26/18 documented as of this encounter
--- OUTSIDE RECORDS SUMMARY | 2024-08-15 14:34 | XMS_ITS | Encounter Summary ---
Demographics Address [address] [facility] [address] [place] [address] Work Phone Mobile Phone Preferred Language es Marital Status Advent Affiliation Unknown Race White Ethnic Group or Author Organization [employer] Address [address] [facility] [address] [place] [address] Care Team Providers Care Film Reader Name Role Phone Johnny Galvan MD Primary Care Provide r Encounter Details Date Type Department Care Team ([facility] st Contact Info) Description 08/04/2024 Population Health Risk Score [facility] (C[facility]) Department [address] [facility] [address] [place] [phone] Provider, Population Health Generic Social History Tobacco Use Types Packs/Day Years [...] your housing situation today? I have jonathon abby 12/09/[address] you li [...] t he electric, gas, oil or water [employer] threatened to shut off services in your [...] AM EDT documented as of this encounter Plan of Treatment Not on file documented as of this encounter Visit Diagnoses Not on filedocumented in this encounter Additional Health Concerns Assessment Noted Time PHQ-9 Depression Total Score: 0 12/09/19 24 9:05 AM EDT documented as of this encounter Care Teams Film Reader Relationship Specialty Start Date End Date Johnny Galvan MD [address] [place] [id number] PCP - General Internal Medicine 04/26/18 documented as of this encounter
--- OUTSIDE RECORDS SUMMARY | 2024-08-15 14:34 | XMS_ITS | Encounter Summary ---
Demographics Address [address] [facility] [address] [place] [address] Work Phone Mobile Phone Preferred Language es Marital Status Christianity Affiliation Unknown Race White Ethnic Group or Author Organization [employer] Address [address] [place] [address] Care Team Providers Care Gynecological Assistant Name Role Phone Johnny Galvan MD Primary Care Provide r Reason for Visit * Reason Comments Med Refill Encounter Details Date Type Department Care Team ([facility] st Contact Info) Description 08/13/2024 Refill [facility] MED[facility]INE [address] [place], [place] [phone] Johnny Galvan MD [address] [place], [place] [phone] Social History Tobacco Use Types Packs/Day Years [...] documented as of this encounter Care Teams Gynecological Assistant Relationship Specialty Start Date End Date Johnny Galvan MD [address] [place] [address] PCP - General Internal Medicine 04/26/18 documented as of this encounter
--- OUTSIDE RECORDS SUMMARY | 2024-08-15 14:35 | XMS_ITS | Clinical Summary ---
Author Organization [employer] Address [address] [place] [address] Care Team Providers Care Research And Development Director Name Role Phone Johnny Galvan MD Primary Care Provide r Allergies No known active allergies Medications insulin pen needle (BD Pen Needle Pauline 2nd Gen) 32G x 4 mm miscIndication s:Type 2 diabetes mellitus without complication, without long-term current use of insulin ([facility]) USE WITH INSULIN ONCE A DAY 100 each 1 06/05/19 23 Active glucose blood (FREESTYLE LITE) test strip 1 each every 8 (eight) hours. 05/30/19 20 Active aspirin 81 MG EC tablet Take 1 tablet by mouth at bed time. 01/24/20 20 Active hydrocortisone (Proctosol HC) 2.5 % rectal creamIndicatio ns:Anal lesion Insert into the rectum 2 times daily. 28 g 1 12/09/19 23 Active metFORMIN (Glucophage) 1000 MG tablet TAKE 1 TABLET BY MOUTH TWICE A DAY WITH BREAKFAST AND DINNER 180 tablet 3 08/16/19 25 Active tiZANidine (Zanaflex) 2 MG tabletIndicati ons:Acute midline low back pain without sciatica Take 1 tablet (2 mg) by mouth every 8 (eight) hours if needed for muscle spasms. 30 tablet 08/16/19 25 Active meloxicam (Mobic) 15 MG tabletIndicati ons:Acute midline low back pain without sciatica Take 1 tablet (15 mg) by mouth Once per day. 30 tablet 1 08/16/19 25 Active meloxicam (Mobic) 15 MG tablet Take 15 mg by mouth in the morning. 01/02/20 22 025 Discontinued(Re order (will not trigger notification to Pharmacy)) metFORMIN (Glucophage) 1000 MG tablet TAKE 1 TABLET BY MOUTH TWICE A DAY WITH BREAKFAST AND DINNER 180 tablet 3 08/19/19 24 025 Discontinued Active Problems Problem Noted Date Diagnosed Date Acute midline low back pain without sciatica Assessment & Plan (08/15/2024 11:35 AM EDT): Pt here with c/o new onset of Low back pain, midline, moderate, no radiation, no injury On exam, evidence of muscle spams Plan: Meloxicam, Tizanidine, Plain films, if no improvement will refer to PT 1 month f/u LLQ abdominal pain 08/15/2024 Assessment & Plan (08/15/2024 11:36 AM EDT): Pt with c/o new onset of LLQ abdominal pain for several days On exam she is exquisitively tender to palpation LLQ, no rebound , no guarding Etiology ? Diverticulitis ? Plan: CBC, UA. CT Abdomen and Pelvis F/u if worsening or no improvement Multiple thyroid nodules 12/09/2023 Assessment & Plan (04/11/2024 9:31 AM EST): US THYROID done 12/09/2023 Showed: Diffusely enlarged, heterogeneous multinodular thyroid gland. Largest thyroid nodule 1.0 cm right mid and 0.9 cm right lower TR 4. Recommend follow up ultrasound in 12 months. Pt was seen by Endocrinology 01/06/2024 who recommended to repeat US in 1 year. Assessment & Plan (12/09/2023 9:26 AM EDT): Recent TSH 08/2023 NormaL On exam, thyroid seems slightly enlarged Plan: Thyroid US Neck pain on right side 08/10/2023 Assessment & Plan (12/09/2023 9:22 AM EDT): Pt with previous c/o intermittent right side neck pain On exam there was evidence of muscle spasm Plain films of cervical spine showed: [id number] degenerative changes in the cervical spine Patient was referred for PT evaluation, pt missed the appointment Follow up if no improvement Assessment & Plan (08/10/2023 10:24 AM EDT): Pt with c/o intermittent right side neck pain On exam evidence of muscle spasm Plan: Plain films of cervical spine PT eval Follow up if no improvement Anal lesion 12/08/2022 Assessment & Plan (08/10/2023 10:19 AM EDT): Pt with previous c/o new onset of blood in her underwear, denies any vaginal bleeding or blood in urine. On exam there is an anal lesion at 9 o'clock. Unclear etiology ? Thrombosed hemorrhoid vs other Vaginal exam Normal, no blood in vaginal canal Urine : negative for blood Of note she had a Colonoscopy in 08/[address] Ray Pt was eventially seen by colorectal surgeon Dr. Augustin who recommended hemorrhoidectomy. Pt decided against it ultimately Assessment & Plan (12/08/2022 12:33 PM EDT): Pt with c/o new onset of blood in her underwear, denies any vaginal bleeding or blood in urine. On exam there is an anal lesion at 9 o'clock. Unclear etiology ? Thrombosed hemorrhoid vs other Vaginal exam Normal, no blood in vaginal canal Urine : negative for blood Of note she had a Colonoscopy in 08/[address] Ray Plan: Referral to dr Augustin Colorectal surgeon Treat empirically with Proctosol, do sith baths Follow up with me after she sees dr Augustin Pharyngeal dysphagia 12/08/2022 Assessment & Plan (04/11/2024 9:29 AM EST): Pt with c/o new onset of this Etiology ? Barium Swallow showed 1. Mild vallecular pooling, which cleared upon subsequent swallows. 2. Trace gastroesophageal reflux. 3. Remainder of the examination is normal. ENT evaluation was done 02/03/2024. Dr. Trimble mentions in his note that her evaluation was normal. Assessment & Plan (12/09/2023 9:15 AM EDT): Pt with c/o new onset of this Etiology ? Barium Swallow showed 1. Mild vallecular pooling, which cleared upon subsequent swallows. 2. Trace gastroesophageal reflux. 3. Remainder of the examination is normal. ENT evaluation pending appointment scheduled for 02/03/2024 Assessment & Plan (08/10/2023 9:00 AM EDT): Pt with c/o new onset of this Etiology ? Barium Swallow showed 1. Mild vallecular pooling, which cleared upon subsequent swallows. 2. Trace gastroesophageal reflux. 3. Remainder of the examination is normal. ENT evaluation pending Assessment & Plan (12/08/2022 12:26 PM EDT): Pt with c/o new onset of this Etiology ? Plan: Barium Swallow. ENT evaluation [facility] care 08/11/2022 Assessment & Plan (12/09/2023 9:19 AM EDT): Mammogram: 10/01/2023 Normal Pap Smear: 08/23/2023 Colonoscopy: 09/17/2016 Assessment & Plan (08/10/2023 10:22 AM EDT): Mammogram: 12/21/2022 Normal Pap Smear: 05/05/2018. Referred to [facility] for repeat Colonoscopy: 09/17/2016 Assessment & Plan (08/11/2022 8:50 AM EDT): Mammogram: 10/29/2020 Normal, Will order a repeat Pap Smear: 05/05/2018 Colonoscopy: 09/17/2016 Class 1 obesity due to exces s calories with serious comorbidity and body mass index (BMI) of 32.0 to 32.9 in adult 07/02/2022 Assessment & Plan (12/09/2023 9:17 AM EDT): Patient has been counseled and educated about diet and exercise. Personal goal of weight loss discussedPatient has comorbidity of: DM Assessment & Plan (07/02/2022 10:49 AM EST): Patient has been counseled and educated about diet and exercise. Personal goal of weight loss discussedPatient has comorbidity of: DM Exercise counseling 07/02/2022 Gallstones 07/02/2022 Assessment & Plan (07/02/2022 11:01 AM EST): Pt being followed by Dr Reyes Bariatric [place] [facility] Adenoma of right adrenal gland 07/01/2022 Assessment & Plan (08/15/2024 11:21 AM EDT): Incidental finding CT of abdomen with and without contrast 03/17/2022 showed: 2.1 x 1.6 cm low-attenuation right adrenal lesion suggestive of a benign lipid rich adenoma. Gallstone. Probable liver cysts. Fleischner guidelines were followed. Seen by Endorcinologist 01/06/[address] done 03/07/2024 showed: 2.2 cm lipid rich adenoma, right adrenal gland. Cholelithiasis. Assessment & Plan (04/11/2024 9:32 AM EST): Incidental finding CT of abdomen with and without contrast 03/17/2022 showed: 2.1 x 1.6 cm low-attenuation right adrenal lesion suggestive of a benign lipid rich adenoma. Gallstone. Probable liver cysts. Fleischner guidelines were followed. Seen by Endorcinologist 01/06/[address] Assessment & Plan (07/02/2022 4:24 PM EST): Incidental finding CT of abdomen with and without contrast 03/17/2022 showed: 2.1 x 1.6 cm low-attenuation right adrenal lesion suggestive of a benign lipid rich adenoma. Gallstone. Probable liver cysts. Fleischner guidelines were followed. No further work up Type 2 diabetes mellitus 10/07/2021 Assessment & Plan (08/15/2024 11:32 AM EDT): Patient here for a follow up Currently on a regimen of: Metformin 1000 mg po BID Hgb A1c 08/15/2024: 7.3 from 7.2 She was under the care of dry mill worker Dr Cameron who discontinued her Lantus and referred her back to [employer] and to us for DM care Plan: Pt reluctant to try another medication. Continue current regimen Previous visit pt was referred for eye exam Microalbumin 07/17/2022 was 18 Pt is no longer on an GAUDENCIO inhibitor due to cough Foot check today not done Continue Asa 81 mg po daily f/u 4 months Pt advised to: adhere to diabetic diet check your blood sugars regularly check your feet on a daily basis Assessment & Plan (04/11/2024 10:28 AM EST): Patient here for a follow up Currently on a regimen of: Metformin 1000 mg po BID Hgb A1c 04/11/2024: 7.2 She was under the care of dry mill worker Dr Cameron who discontinued her Lantus and referred her back to [employer] and to us for DM care Plan: Continue current regimen Previous visit pt was referred for eye exam Microalbumin 07/17/2022 was 18 Pt is no longer on an GAUDENCIO inhibitor due to cough Foot check today not done Continue Asa 81 mg po daily f/u 4 months Pt advised to: adhere to diabetic diet check your blood sugars regularly check your feet on a daily basis Assessment & Plan (12/09/2023 9:14 AM EDT): Patient here for a follow up Currently on a regimen of: Metformin 1000 mg po BID Hgb A1c 12/09/2023: 6.8 Glucometer average 132 She was under the care of dry mill worker Dr Cameron who discontinued her Lantus and referred her back to [employer] and to us for DM care Plan: Continue current regimen Previous visit pt was referred for eye exam Microalbumin 10/07/2021 was 1.4 Pt is no longer on an GAUDENCIO inhibitor due to cough Foot check today not done Continue Asa 81 mg po daily f/u 4 months Pt advised to: adhere to diabetic diet check your blood sugars regularly check your feet on a daily basis Assessment & Plan (08/10/2023 10:21 AM EDT): Patient here for a follow up Currently on a regimen of: Metformin 1000 mg po BID Hgb A1c 08/10/2023: 6.8 Glucometer average She was under the care of dry mill worker Dr Cameron who recently discontinue her Lantus and referred her back to [employer] and to us for DM care Plan: Continue current regimen Previous visit pt was referred for eye exam Microalbumin 10/07/2021 was 1.4 Pt is no longer on an GAUDENCIO inhibitor due to cough Foot check today not done Continue Asa 81 mg po daily f/u 4 months Pt advised to: adhere to diabetic diet check your blood sugars regularly check your feet on a daily basis Assessment & Plan (12/08/2022 11:24 AM EDT): Patient here for a follow up Currently on a regimen of: Metformin 1000 mg po BID Hgb A1c 12/08/2022 was: 6.2 From 11.4 Glucometer average 101 She was under the care of dry mill worker Dr Cameron who recently discontinue her Lantus and referred her back to [employer] and to us for DM care Plan: Continue current regimen Previous visit pt was referred for eye exam Microalbumin 10/07/2021 was 1.4 Pt is no longer on an GAUDENCIO inhibitor due to cough Foot check today not done Continue Asa 81 mg po daily f/u 4 months Pt advised to: adhere to diabetic diet check your blood sugars regularly check your feet on a daily basis Assessment & Plan (08/11/2022 8:50 AM EDT): Televisit Pt reports that she is doing well only on Metformin 1000 mg po BID Hgb A1c 06/15/2022 was: 11.4 Glucometer average 124 She is now under the care of dry mill worker Dr Cameron who recently discontinue her Lantus and referred her back to [employer] Plan: Continue as per Endocrinology, Has an appointment in October Previous visit pt was referred for eye exam Microalbumin 10/07/2021 was 1.4 Pt is no longer on an GAUDENCIO inhibitor due to cough Foot check today not done Continue Asa 81 mg po daily f/u 3 months Pt advised to: adhere to diabetic diet check your blood sugars regularly check your feet on a daily basis Assessment & Plan (07/02/2022 10:56 AM EST): Patient initially did very well after being evaluated by [employer] Superintendent and Regrinder, she was able to come off Lantus and off Humalog She was doing well only on Metformin 1000 mg po BID, but unfortunately recently her Blood sugars started to go up once a gain and she was restarted back on Lantus at 10 units subcutaneous at bedtime by our [facility] provider Hgb A1c 06/15/2022 was: 11.4 Glucometer average 184 Plan: Increase Lantus to 16 units subcutaneous qhs Previous visit pt was referred for eye exam Microalbumin 10/07/2021 was 1.4 Pt is no longer on an GAUDENCIO inhibitor due to cough Foot check today not done Continue Asa 81 mg po daily f/u 4 weeks Pt advised to: adhere to diabetic diet check your blood sugars regularly check your feet on a daily basis Encounters Date Type Department Care Team Description 08/15/2024 11:15 AM EDT Office Visit [address] [address] oJhnny Galvan MD Acute midline low back pain without sciatica (Primary Dx); LLQ abdominal pain; Type 2 diabetes mellitus without complication, with long-term current use of insulin ([facility]); Adenoma of right adrenal gland 08/15/2024 Travel 08/13/[address] [address] Johnny Galvan MD 08/07/2024 Patient Outreach [address] [address] Johnny Galvan MD Pre-visit Planning (SDOH Screening negative and Tobacco screening negative) 08/04/2024 Population Health Risk Score [facility] () Department [address] [place] [phone] Provider, Population Health Generic 08/02/[address] [address] Johnny Galvan MD Chart Prep 07/26/2024 10:30 AM EST Procedure Visit [address] [address] Gerry Ventura CNM Stress incontinence (Primary Dx); Bilateral mastodynia; Visit for pelvic exam 07/26/2024 Travel 06/21/[address] [address] Alesia Renteria MA Transition Of Care (Tcm) from Last 3 Months Immunizations Name Administration Dates Next Due Influenza injectable quadriv alent IIV4 with preservative 02/02/2019 Influenza injectable quadrivalent preservative f ree 03/04/2021 Tdap 04/23/2016 Family History Medical History Relation Name Comments Stomach cancer Maternal Grandmother Colon cancer Mother's Brother Breast cancer Mother's Sister at 80 Relation Name Status Comments Maternal Grandmother Mother's Brother Mother's Sister Social History Tobacco Use Types Packs/Day Years Used Date Smoking Tobacco: Never Passive Smoke Exposure: Never Smokeless Tobacco: Never Tobacco Cessation:Counseling Given: Not Answered Alcohol Use Standard Drinks/Week Comments Never 0 [...] Orientation Straight 03/23/2022 10 :19 AM EDT Last Filed Vital Signs Vital Sign Reading Time Taken Comments Blood Pressure 129/78 08/15/2024 11:09 AM EDT Pulse 90 08/15/2024 11:09 AM EDT Temperature 36.1 ??C (96.9 ??F) 08/15/2024 11:09 AM E DT Respiratory Rate 20 08/15/2024 11:09 AM EDT Oxygen Saturation 98% 08/15/2024 11:09 AM EDT Inhaled Oxygen Concentration - - Weight 78 kg (172 lb) 08/15/2024 11:09 AM EDT Height 160 cm (5' 3 ) 08/15/2024 11:09 AM EDT Body Mass Index 30.47 08/15/2024 11:09 AM EDT Plan of Treatment Health Maintenance Due Date Last Done Comments CT Colonography 1966 Colonoscopy 1966 Colorectal Cancer Screening 1966 FIT DNA/Cologuard 1966 FIT 1966 FOBT 1966 HIV Screening 1965 Sigmoidoscopy 1966 Diabetes: Foot Exam 1976 Eye Exam 1976 Hepatitis C Screening 1984 Hepatitis B Vaccines (1 of 3 - 19+ 3-dose series) 1985 Pneumococcal Vaccine: 50+ Years (1 of 2 - PCV) 1985 Zoster Vaccines (1 of 2) 2016 Diabetes: Urine Protein Screening 07/17/2023 07/17/2022, 10/07/2021, 02/15/2020 Lipid Panel 07/28/2023 07/27/2022, 09/21, 02/15/2020 COVID-19 Vaccine ( season) 2024 08/09/2021, 10/15/2020, 09/17/2020 Influenza Vaccine (#1) 2024 03/04/2021, 2018 Mammogram 09/30/2024 10/01/2023, 09/21, 10/01/2023, Additional history exists Diabetes: Hemoglobin A1C 11/15/2024 025, 04/11/2024, 12/09/2023, Additional history exists Depression Screening 12/08/2024 12/09/2023, 12/09/19 Alcohol/Substance Use Screening 04/11/2025 04/11/2024 SDOH Screening 08/07/2025 08/07/2024 Tobacco Screening 08/15/2025 08/15/2024 DTaP/Tdap/Td Vaccines (2 - Td or Tdap) 04/23/2026 04/23/2016 Cervical Cancer Screening 08/22/2028 HPV/Cotest 08/22/2028 08/23/2023, 05/05/2018 Pap Smear 08/22/2028 08/23/2023 RSV Patients and Patients Aged 60 years or older (1 - 1-dose 75+ series) 2041 HIB Vaccines Aged Out No longer eligi ble based on patient's age to complete this topic HPV Vaccines Aged Out No longer eligi ble based on patient's age to complete this topic Hepatitis A Vaccines Aged Out No long er eligible based on patient's age to complete this topic IPV Vaccines Aged Out No longer eligi ble based on patient's age to complete this topic Meningococcal Vaccine Aged Out No elisa sonia eligible based on patient's age to complete this topic RSV under 20 months Aged Out No longe r eligible based on patient's age to complete this topic Rotavirus Vaccines Aged Out No longer eligible based on patient's age to complete this topic Procedures Procedure Name Priority Date/Time Associated Diagnosis Comments CBC WITH AUTO DIFFERENTIAL Routine 08/15/2024 12:12 PM EDT LLQ abdominal pain URINALYSIS, COMPLETE, WITH REFLEX TO CULTURE Routine 08/15/2024 12:12 PM EDT Acute midline low back pain without sciatica BASIC METABOLIC PANEL Routine 08/15/2024 12:12 PM EDT LLQ abdominal pain POCT GLYCATED HEMOGLOBIN, TOTAL Routine 08/15/2024 11:25 AM EDT Type 2 diabetes mellitus without complication, with long-term current use of insulin (CMS/HCC) POCT GLUCOSE Routine 08/15/2024 11:16 AM EDT Type 2 diabetes mellitus without complication, with long-term current use of insulin (CMS/HCC) BI US BREAST LIMITED BILATERAL Urgent 10/01/2023 2:23 PM EDT HPV MRNA E6/E7 REFLEX TO HPV 16, 18/45 Routine 08/23/2023 9:15 AM EDT PAP SMEAR Routine 08/23/2023 9:15 AM EDT Cervical cancer screening LIPID PANEL, STANDARD Routine 07/27/2022 9:28 AM EST ALBUMIN, RANDOM URINE W/CREATININE Routine 07/17/2022 12:38 PM EST from Last 3 Months or Most Recently Relevant to Health Maintenance Results * (ABNORMAL) Urinalysis, Complete, with Reflex to Culture (08/15/2024 12:12 PM EDT) Color Urine Yellow [facility] Appearance Urine Clear [facility] PH 6.0 5.0 - 9.0 [facility] Glucose Urine UA Negative Negative mg/dL [facility] Urine Blood Negative Negative [facility] Specific [place] - Urine 1.015 1.005 - 1.025 [facility] Urine Protein Negative Neg-Trace mg/dL [facility] Urine Ketones Negative Negative mg/dL [facility] Nitrite Urine Negative Negative [facility] Leukocyte Esterase Urine Moderate (2+)(A) Negative [facility] RBC Urine 0-2 0 - 2 /HPF [facility] Urine WBC 0-5 0 - 5 /HPF [facility] Urine Squamous Epithelial Cell 0-2 0 - 2 /HPF [facility] Urine Bacteria None Seen None Seen [facility] Hyaline Casts, Urine 0-2 0 - 2 /LPF [facility] Urine 08/15/2024 12:1 2 PM EDT 08/15/2024 1:05 PM EDT Narrative [facility] - 08/15/2024 2:04 PM EDT Urine, Clean Catch us Johnny Ramírez MD LAB URINE ORDERABLES Final Result [facility] [address] [place], [place] [phone] * (ABNORMAL) CBC auto differential (08/15/2024 12:12 PM EDT) White Blood Count 6.0 4.8 - 10.8 X10*3/uL [facility] Red Blood Count 4.04(L) 4.20 - 5.50 X10*6/uL [facility] Hemoglobin 11.1(L) 12.0 - 16.0 g/dl [facility] Hematocrit 33.0(L) 37.0 - 47.0 % [facility] Mean Corpuscular Volume 81.7 80.0 - 98.0 fL [facility] Mean Corpuscular Hemoglobin 27.5 27.0 - 33.0 pg [facility] Mean Corpuscular HGB Conc 33.6 31.0 - 35.0 g/dl [facility] Red Cell Distribution Width 14.9 11.0 - 16.0 % [facility] Platelet Count 278 160 - 400 X10*3/uL [facility] Mean Platelet Volume 10.4 9.4 - 12.3 fL [facility] Neutrophils Percent Auto 54.3 45 - 73 % [facility] Imm Gran Pct Auto 0.3 0.0 - 0.4 % [facility] Lymphocytes Percent Auto 34.2 20 - 40 % [facility] Monocytes Percent Auto 7.8 2 - 11 % [facility] Eosinophils Percent Auto 2.7 0 - 4 % [facility] Basophils Percent Auto 0.7 0 - 2 % [facility] NRBC Pct Auto 0.0 0.0 - 0.2 /100WBC [facility] Neutrophils Absolute Auto 3.3 2.0 - 8.3 x10*3/uL [facility] Imm Gran Abs Auto 0.02 0.00 - 0.03 X10*3/uL [facility] Lymphocytes Absolute Auto 2.1 1.2 - 4.9 X10*3/uL [facility] Monocytes Absolute Auto 0.5 0.1 - 1.2 X10*3/uL [facility] Eosinophils Absolute Auto 0.2 0.0 - 0.4 X10*3/uL [facility] Basophils Absolute Auto 0.0 0.0 - 0.2 X10*3/uL [facility] NRBC Abs Auto 0.000 0.0 - 0.012 X10*3/uL [facility] Blood Venous blood specimen / Unknown 08/15/2024 12:12 PM EDT 08/15/2024 1:38 PM EDT us Johnny Ramírez MD LAB BLOOD ORDERABLES Final Result [facility] [address] [place] [address] [phone] * (ABNORMAL) Basic Metabolic Panel (08/15/2024 12:12 PM EDT) Sodium 140 135 - 145 mmol/L [facility] Potassium 3.9 3.3 - 5.1 mmol/L [facility] Chloride 108 96 - 108 mmol/L [facility] Carbon Dioxide 25 22 - 29 mmol/L [facility] Anion Gap 11(L) 12 - 20 [facility] Urea Nitrogen (BUN) 10 9 - 16 mg/dL [facility] Creatinine, Serum 0.65 0.5 - 1.4 mg/dL [facility] Estimated Glomerular Filt Rate >60 [facility] Comment:Chronic Kidney Disea se: Estimated GFR < 60 mL/min/[id number] Kidney Disease: Estimated GFR < 15 mL/min/1.73m2 Glucose 157(H) 60 - 115 mg/dL [facility] Calcium 10.0 8.4 - 10.2 mg/dL [facility] Blood Venous blood specimen / Unknown 08/15/2024 12:12 PM EDT 08/15/2024 1:12 PM EDT Result [facility] Johnny Ramírez MD LAB BLOOD ORDERABLES Final Result [facility] [address] [place] [phone] * (ABNORMAL) POCT HGB A1C (08/15/2024 11:25 AM EDT) Hemoglobin A1C 7.3(A) 4.0 - 6.0 % QC Media Lot # [id number] Lot# Expiration Date Blood 08/15/2024 11:2 5 AM EDT Result [facility] Johnny Ramírez MD POINT OF CARE TEST EN TER/EDIT ORDERABLES Final Result * POCT Glucose (08/15/2024 11:16 AM EDT) Glucose Blood, POC 198 60 - 200 mg/dL QC Media Lot # [id number] Lot# Expiration Date Blood Capillary blood specimen / Unknown 08/15/2024 11:16 AM EDT Result [facility] Johnny Ramírez MD POINT OF CARE TEST EN TER/EDIT ORDERABLES Final Result * BI US Breast Limited Bilateral (10/01/2023 2:23 PM EDT) Anatomical Region Laterality Modality Breast Bilateral Ultrasound 10/01/2023 2:23 PM EDT Narrative 10/01/2023 2:41 PM EDT ? [facility] ? [address] ?[place] [address] ? Ultrasound Report ? Signed ? Patient: Luu,Aaliyah E ?MR#: [id number] ?? [id number] ? : 1965 ?Acct:[id number] ? Age/Sex: 58 / F ?ADM Date: 05/10/24 ? Loc: HO.MAMMO ? Attending Dr: Gerry Ventura CNM ? Ordering Physician: GERRY VENTURA CNM ?? Date of Service: 10/01/23 ?? Procedure(s): US breast BI limited mamm only ?? Accession Number(s): [id number] ? cc: Johnny Banuelos MD; GERRY VENTURA CNM ? EXAMINATION: ?? MM DIAGNOSTIC DIGITAL BREAST TOMOSYNTHESIS, BILATERAL ?? US BREAST LIMITED, BILATERAL ? CLINICAL INFORMATION: ? Bilateral diffuse breast pain with clear bilateral nipple discharge x1 ?? year. No palpable lumps. ? COMPARISON: ?? Mammography: 12/21/2022, 11/20/2022, 10/30/2021, 10/29/2020, 08/01/2019, ?? 05/05/2018, 12/10/2016 ? TECHNIQUE: ?? Digital breast tomosynthesis is performed in both the craniocaudal and ?? mediolateral oblique views along with computer-aided detection (CAD). ?? Synthesized 2D images are generated from the tomosynthesis. ? FINDINGS: ?? There are scattered areas of fibroglandular density (ACR BI-RADS breast ?? composition Category b). ? There are rare scattered benign-appearing calcifications in the ?? anterior breasts bilaterally. There are no suspicious masses, ?? suspicious grouped calcifications, or areas of architectural distortion ?? in either breast. There are small normal-appearing intramammary nodes ?? in the upper outer quadrants of both breasts, unchanged. The ?? parenchymal pattern is stable from prior exams. No retroareolar ?? abnormality is identified on either side. ? ULTRASOUND: ?? CLINICAL INFORMATION: ?? Bilateral diffuse breast pain with clear bilateral nipple discharge x1 ?? year. No palpable lumps. ? COMPARISON: ?? 10/29/2020 bilateral. ? TECHNIQUE: ?? Targeted sonographic evaluation was performed using a high frequency ?? linear transducer. Both breasts were scanned in all 4 quadrants in the ?? retroareolar regions. Selected archived documentation. ? FINDINGS: ? RIGHT BREAST: There is a mixture of fatty and fibroglandular tissue. ?? No suspicious mass is seen. ??There is no pathologic acoustic shadowing. ?? There are no cystic abnormalities. There is no duct ectasia. There is ?? no retroareolar abnormality identified. ? LEFT BREAST: There is a mixture of fatty and fibroglandular tissue. ??No ?? suspicious mass is seen. ??There is no pathologic acoustic shadowing. ?? There are no cystic abnormalities. There is no duct ectasia. There is ?? no retroareolar abnormality identified. ? US/ breast BI limited mamm only ?? IMPRESSION: ?? There are no findings suspicious for malignancy in either breast. ? There are no mammographic or sonographic findings to explain bilateral ?? diffuse breast pain in or clear bilateral nipple discharge. Recommend ?? clinical management. ? Otherwise, recommend patient return to routine annual screening. ? OVERALL ASSESSMENT: ?? Mammography: BI-RADS 2 - Benign Findings ?? Ultrasound: BI-RADS 2 - Benign Findings ? RECOMMENDATION: ?? 1. Patient should be managed based on the clinical impression. ?2. ?? Otherwise, routine annual screening mammography. ? This patient's information was entered into a reminder system with a ?? target due date for their next mammogram. ? Dictated By: ?Denilson Lacey MD ? Signed By: ?<Electronically signed by Denilson Lacey MD in OV> ?05/10/24 1436 ? DD/ 1423 ? TD/TT: ? Engineering Specialist: ? Procedure Note Sridhar, Image - 10/01/2023 [facility] [address] [place] [address] Ultrasound Report Signed Patient: Aaliyah Luu EMR#: [id number] : 1965Acct:[id number] Age/Sex: 58 / FADM Date: 10/01/23 Loc: [facility] Attending Dr: Gerry Ventura CNM Ordering Physician: GERRY VENTURA CNM Date of Service: 10/01/23 Procedure(s): US breast BI limited mamm only Accession Number(s): [id number] cc: Johnny Banuelos MD; GERRY VENTURA CNM EXAMINATION: MM DIAGNOSTIC DIGITAL BREAST TOMOSYNTHESIS, BILATERAL US BREAST LIMITED, BILATERAL CLINICAL INFORMATION: Bilateral diffuse breast pain with clear bilateral nipple discharge x1 year. No palpable lumps. COMPARISON: Mammography: 12/21/2022, 11/20/2022, 10/30/2021, 10/29/2020, 08/01/2019, 05/05/2018, 12/10/2016 TECHNIQUE: Digital breast tomosynthesis is performed in both the craniocaudal and mediolateral oblique views along with computer-aided detection (CAD). Synthesized 2D images are generated from the tomosynthesis. FINDINGS: There are scattered areas of fibroglandular density (ACR BI-RADS breast composition Category b). There are rare scattered benign-appearing calcifications in the anterior breasts bilaterally. There are no suspicious masses, suspicious grouped calcifications, or areas of architectural distortion in either breast. There are small normal-appearing intramammary nodes in the upper outer quadrants of both breasts, unchanged. The parenchymal pattern is stable from prior exams. No retroareolar abnormality is identified on either side. ULTRASOUND: CLINICAL INFORMATION: Bilateral diffuse breast pain with clear bilateral nipple discharge x1 year. No palpable lumps. COMPARISON: 10/29/2020 bilateral. TECHNIQUE: Targeted sonographic evaluation was performed using a high frequency linear transducer. Both breasts were scanned in all 4 quadrants in the retroareolar regions. Selected archived documentation. FINDINGS: RIGHT BREAST: There is a mixture of fatty and fibroglandular tissue. No suspicious mass is seen. There is no pathologic acoustic shadowing. There are no cystic abnormalities. There is no duct ectasia. There is no retroareolar abnormality identified. LEFT BREAST: There is a mixture of fatty and fibroglandular tissue. No suspicious mass is seen. There is no pathologic acoustic shadowing. There are no cystic abnormalities. There is no duct ectasia. There is no retroareolar abnormality identified. US/US breast BI limited mamm only IMPRESSION: There are no findings suspicious for malignancy in either breast. There are no mammographic or sonographic findings to explain bilateral diffuse breast pain in or clear bilateral nipple discharge. Recommend clinical management. Otherwise, recommend patient return to routine annual screening. OVERALL ASSESSMENT: Mammography: BI-RADS 2 - Benign Findings Ultrasound: BI-RADS 2 - Benign Findings RECOMMENDATION: 1. Patient should be managed based on the clinical impression. 2. Otherwise, routine annual screening mammography. This patient's information was entered into a reminder system with a target due date for their next mammogram. Dictated By: Denilson Lacey MD Signed By: <Electronically signed by Denilson Lacey MD in OV> 10/01/23 1436 DD/ 1423 TD/TT: Engineering Specialist: Gerry Ventura CNM IMG US PROCEDURES Final R esult * HPV mRNA E6/E7 w/Reflex to HPV Genotypes 16, 18/45 (08/23/2023 9:15 AM EDT) HPV nRNA E6/E7 Not Detected Not Detected [facility] Comment:Methodology: Transcr iption-Mediated AmplificationThis assay detects E6/E7 viral messenger RNA (mRNA) from 14high-risk HPV types (16,18,31,33,35,39,45,51,52,56,58,59,66,68).Cervical sources are required for HPV testing.If a vaginal source from a patient who has had atotal hysterectomy with removal of cervix wassubmitted, please contact the testing laboratoryfor alternative testing options.For additional information, please refer tohttp://education.[employer]faq/PIH278p0(This link if provided for information/educational purposes only.)THIS TEST WAS PERFORMED AT:[facility] [place] [id number] ARCEO MD HPV mRNA E6/E7 [facility] HPV 16 RNA [facility] HPV 18/45 RNA [facility] 08/23/2023 9:15 AM EDT 08/24/2023 7:00 AM EDT Gerry Ventura CNM LAB CYTOLOGY ORDERABLES F inal Result [facility] [address] [place] [address] [phone] * Pap Smear (08/23/2023 9:15 AM EDT) Swab Cervix uteri structure / Unknown 08/23/2023 9:15 AM EDT 08/24/2023 7:00 AM EDT [facility] - 09/10/2023 9:24 AM EDT ----- ------- Name: Aaliyah Luu ?Age/Sex: 58/F ? : 1965 Unit#: [id number] ?? Attend Dr: GERRY VENTURA CNM ?Re08/23/23 ?Status: DEP REF ? Location: HO.HHCLNP ? Disch: ? ----- ------- SPEC : [id number] ? RECD: 08/24/23-699 ? STATUS: ??SOUT ? REQ NUM: [id number] ? BRAD: 08/23/23-914 ? SUBM DR: GERRY VENTURA CNM ? ENTERED: ??08/24/23-831 ?SP TYPE: Pap Smr ?OTHR : ? ORDERED: ??Pap Smear ? Interpretation ?? Satisfactory for evaluation. ?? Atrophic. ?? Negative for intraepithelial lesion or malignancy. ?HPV mRNA E6/E7: ?NOT DETECTED ? This assay detects E6/E7 viral messenger RNA (mRNA) from 14 high-risk HPV types (16, 18, ?? 31, 33, 35, 39, 45, 51, 52, 56, 58, 59, 66, 68) ?? HPV testing performed by [facility], [place], [place]. ??See reference laboratory ?? portion of the EMR for entire report. ?Clinical Information LMP: Postmenopausal Previous PAP test: 04/2018, WNL, HPV neg Other surgery: Other history: ? Material Received ?? ThinPrep-Vaginal/Cervical ----- ------- Signed (signature on file) IKNGS Ramirez (ASCP) 09/10/23 0924 ? ----- ------- ? END OF REPORT ? Gerry Ventura [facility] CYTOLOGY ORDERABLES F inal Result Performing Organization Address [facility] Co de Phone Number [facility] [address] [place] [address] [phone] * Lipid Panel, Standard (07/27/2022 9:28 AM EST) Triglycerides 97 mg/dL [facility] Comment:Desirable Triglyceri de: less than 150 mg/dLBorderline High Triglyceride 150-199 mg/dLHigh Triglyceride: 200-499 mg/dLVery High Triglyceride: greater than or equal to 5OO mg/dL Cholesterol 228 mg/dL [facility] Comment:Desirable Cholestero l: less than 200 mg/dLBorderline High Cholesterol: 200-239 mg/dLHigh Cholesterol: greater than 239 mg/dL LDL Cholesterol Calculated 147 mg/dl [facility] Comment:Desirable LDL: less than 100 mg/dLNear Optimal/Above Optimal LDL: 110- 129 mg/dLBorderline High LDL: 130-159 mg/dLHigh LDL: 160-189 mg/dLVery High LDL: greater than or equal to 190 mg/dL HDL Cholesterol 62 mg/dL [facility] Comment:Desirable HDL: great er than 40 mg/dL Note: This HDL assay may give artificially low results in patients with liver disease. 07/27/2022 9:28 AM EST 07/27/2022 9:29 AM EST [facility] External Provider LAB BLO OD ORDERABLES Final Result Performing Organization Address [facility]/State/ZIP Co de Phone Number [facility] [address] [place] [address] [phone] * Albumin, Random Urine W/Creatinine (07/17/2022 12:38 PM EST) Creatinine, Urine 95.47 mg/dL [facility] Microalbumin Urine 18.0 mg/L [facility] Microalbum Creatinine Ratio Ur 18.8 ug/mg cr [facility] Comment:Albumin/Creatinine R atio Reference Ranges: Normal: < 30 ug/mg creatinine Microalbuminuria: 30 - 300 ug/mg creatinineClinical Albuminuria: > 300 ug/mg creatinine 07/17/2022 12:3 8 PM EST 07/17/2022 1:20 PM EST us [facility] External Provider LAB URI NE ORDERABLES Final Result Performing Organization Address City/State/[facility] Co de Phone Number [facility] [address] [place] [address] [phone] from Last 3 Months or Most Recently Relevant to Health Maintenance Insurance * Guarantor: Aaliyah Luu Account Type Relation to Patient Date of Phone Billing Address Personal/Family Self 1965 [address] [place] [address] [facility] C3 H[employer] FULL Care Teams Research And Development Director Relationship Specialty Start Date End Date Johnny Galvan MD [address] [place] [phone] PCP - General Internal Medicine 04/26/18
--- OUTSIDE RECORDS SUMMARY | 2024-08-15 14:35 | XMS_ITS | Encounter Summary ---
Demographics Address [address] [facility] [address] [place] [address] Work Phone Mobile Phone Preferred Language es Marital Status Taoism Affiliation Unknown Race White Ethnic Group or Author Organization [employer] Address [address] [facility] [address] [place] [address] Care Team Providers Care Shadow Graph Weight Operator Name Role Phone Johnny Galvan MD Primary Care Provide r Reason for Referral * Imaging (Routine) - Authorized Specialty Diagnoses / Procedures Referred By Contac t Referred To Contact Radiology Diagnoses LLQ abdominal pain Procedures CT Abdomen Pelvis w/ Contrast Johnny Galvan MD [address] [place] [address] Phone: tel: fax: [address] Phone: tel: fax: Referral ID Status Reason Start Date Expiration Date V isits Requested Visits Authorized [id number] Authorized 08/15/2024 08/15/2025 1 1 Reason for Visit * Reason Comments Diabetes PT has a new pain th at's beginning from her lower left abdomen towards her lower back Encounter Details Date Type Department Care Team (Late st Contact Info) Description 08/15/2024 11:15 AM EDT Office Visit [facility] [address] [place], [place] [phone] Johnny Galvan MD [address], [place] [phone] Acute midline low back pain without sciatica (Primary Dx); LLQ abdominal pain; Type 2 diabetes mellitus without complication, with long-term current use of insulin (CMS/HCC); Adenoma of right adrenal gland Social History Tobacco Use Types Packs/Day Years [...] Mass Index 30.47 08/15/2024 11:09 AM EDT documented in this encounter Progress Notes * Johnny Ramírez MD - 08/15/2024 11:15 AM EDT SUBJECTIVE Aaliyah Luu is a 59 y.o. adult who presents for Diabetes (PT has a new pain that's beginning from her lower left abdomen towards her lower back). Back Pain This is a new problem. The current episode started 1 to 4 weeks ago. The pain is present in the lumbar spine. The pain is at a severity of 7/10. The pain is moderate. Associated symptoms include abdominal pain. Pertinent negatives include no chest pain, dysuria, fever or headaches. She has tried nothing for the symptoms. Abdominal Pain This is a new problem. The current episode started in the past 7 days. The onset quality is sudden.The problem occurs intermittently. The pain is located in the LLQ. The pain is at a severity of 6/10. The pain is moderate. The quality of the pain is aching. The abdominal pain radiates to the LLQ. Pertinent negatives include no constipation, diarrhea, dysuria, fever, headaches, melena, nausea or vomiting. Nothing aggravates the pain. She has tried nothing for the symptoms. Review of Systems Constitutional: Negative for fever. HENT: Negative for sore throat. Respiratory: Negative for cough and shortness of breath. Cardiovascular: Negative for chest pain. Gastrointestinal: Positive for abdominal pain. Negative for constipation, diarrhea, melena, nausea and vomiting. Genitourinary: Negative for dysuria. Musculoskeletal: Positive for back pain. Neurological: Negative for headaches. No Known Allergies OBJECTIVE Vitals: 08/15/24 1109 BP: 129/78 BP Location: Left arm Patient Position: Sitting BP Cuff Size: Adult Pulse: 90 Resp: 20 Temp: 96.9 ??F (36.1 ??C) TempSrc: Temporal SpO2: 98% Weight: 172 lb (78 kg) Height: 5' 3 (1.6 m) Physical Exam Vitals reviewed. Constitutional: Appearance: Normal appearance. HENT: Head: Normocephalic and atraumatic. Right Ear: External ear normal. Left Ear: External ear normal. Nose: Nose normal. Mouth/Throat: Mouth: Mucous membranes are moist. Eyes: Conjunctiva/sclera: Conjunctivae normal. Cardiovascular: Rate and Rhythm: Normal rate and regular rhythm. Pulmonary: Effort: Pulmonary effort is normal. Breath sounds: Normal breath sounds. Abdominal: General: Abdomen is flat. Bowel sounds are normal. There is no distension. Palpations: Abdomen is soft. Tenderness: There is abdominal tenderness in the left lower quadrant. There is no guarding or rebound. Negative signs include Merida's sign and McBurney's sign. Musculoskeletal: Cervical back: Normal. Thoracic back: Normal. Lumbar back: Spasms and tenderness present. Negative right straight leg raise test and negative left straight leg raise test. Skin: General: Skin is warm. Neurological: Mental Status: She is alert. Mental status is at baseline. Assessment/Plan Problem List Items Addressed This Visit Acute midline low back pain without sciatica - Primary Pt here with c/o new onset of Low back pain, midline, moderate, no radiation, no injury On exam, evidence of muscle spams Plan: Meloxicam, Tizanidine, Plain films, if no improvement will refer to PT 1 month f/u Relevant Medications tiZANidine (Zanaflex) 2 MG tablet meloxicam (Mobic) 15 MG tablet Other Relevant Orders Urinalysis, Complete, with Reflex to Culture XR Lumbar Spine 2-3 Views LLQ abdominal pain Pt with c/o new onset of LLQ abdominal pain for several days On exam she is exquisitively tender to palpation LLQ, no rebound , no guarding Etiology ? Diverticulitis ? Plan: CBC, UA. CT Abdomen and Pelvis F/u if worsening or no improvement Relevant Orders CT Abdomen Pelvis w/ Contrast Basic Metabolic Panel CBC auto differential Type 2 diabetes mellitus (CMS/HCC) Patient here for a follow up Currently on a regimen of: Metformin 1000 mg po BID Hgb A1c 08/15/2024: 7.3 from 7.2 She was under the care of marketing director Dr Cameron who discontinued her Lantus and referred her back to Hearing Therapist and to us for DM care Plan: [...] check your feet on a daily basis Relevant Orders POCT Glucose (Completed) POCT HGB A1C (Completed) Adenoma of right adrenal gland Incidental finding CT of abdomen with and without contrast 03/17/2022 showed: 2.1 x 1.6 cm low-attenuation right adrenal lesion suggestive of a benign lipid rich adenoma. Gallstone. Probable liver cysts. Fleischner guidelines were followed. Seen by Endorcinologist 01/06/[address] done 03/07/2024 showed: 2.2 cm lipid rich adenoma, right adrenal gland. Cholelithiasis. documented in this encounter Miscellaneous Notes * Assessment & Plan Note - Johnny Ramírez MD - 08/15/2024 11:36 AM EDT Associated Problem(s): LLQ abdominal pain Pt with c/o new onset of LLQ abdominal pain for several days On exam she is exquisitively tender to palpation LLQ, no rebound , no guarding Etiology ? Diverticulitis ? Plan: CBC, UA. CT Abdomen and Pelvis F/u if worsening or no improvement * Assessment & Plan Note - Johnny Ramírez MD - 08/15/2024 11:35 AM EDT Associated Problem(s): Acute midline low back pain without sciatica Pt here with c/o new onset of Low back pain, midline, moderate, no radiation, no injury On exam, evidence of muscle spams Plan: Meloxicam, Tizanidine, Plain films, if no improvement will refer to PT 1 month f/u * Assessment & Plan Note - Johnny Ramírez MD - 08/15/2024 11:23 AM EDT Associated Problem(s): Type 2 diabetes mellitus (CMS/HCC) Patient here for a follow up Currently on a regimen of: Metformin 1000 mg po BID Hgb A1c 08/15/2024: 7.3 from 7.2 She was under the care of marketing director Dr Cameron who discontinued her Lantus and referred her back to Hearing Therapist and to us for DM care Plan: [...] check your feet on a daily basis * Assessment & Plan Note - Johnny Ramírez MD - 08/15/2024 11:21 AM EDT Associated Problem(s): Adenoma of right adrenal gland Incidental finding CT of abdomen with and without contrast 03/17/2022 showed: 2.1 x 1.6 cm low-attenuation right adrenal lesion suggestive of a benign lipid rich adenoma. Gallstone. Probable liver cysts. Fleischner guidelines were followed. Seen by Endorcinologist 01/06/[address] done 03/07/2024 showed: 2.2 cm lipid rich adenoma, right adrenal gland. Cholelithiasis. documented in this encounter Plan of Treatment Scheduled Orders Name Type Priority Associated Diagnoses Orde r Schedule XR Lumbar Spine 2-3 Views Imaging Routine Acute midline low back pain without sciatica Expected: 08/15/2024, Expires: 08/15/2025 CT Abdomen Pelvis w/ Contrast Imaging Routine LLQ abdominal pain Expected: 08/15/2024, Expires: 08/15/2025 documented as of this encounter Procedures Procedure Name Priority Date/Time Associated Diagnosis Comments URINALYSIS, COMPLETE, WITH REFLEX TO CULTURE Routine 08/15/2024 12:12 PM EDT Acute midline low back pain without sciatica CBC WITH AUTO DIFFERENTIAL Routine 08/15/2024 12:12 PM EDT LLQ abdominal pain BASIC METABOLIC PANEL Routine 08/15/2024 12:12 PM EDT LLQ abdominal pain POCT GLYCATED HEMOGLOBIN, TOTAL Routine 08/15/2024 11:25 AM EDT Type 2 diabetes mellitus without complication, with long-term current use of insulin ([facility]) POCT GLUCOSE Routine 08/15/2024 11:16 AM EDT Type 2 diabetes mellitus without complication, with long-term current use of insulin ([facility]) documented in this encounter Results * (ABNORMAL) CBC auto differential (08/15/2024 12:12 PM EDT) White Blood Count 6.0 4.8 - 10.8 X10*3/uL [facility] Red Blood Count 4.04(L) 4.20 - 5.50 X10*6/uL [facility] Hemoglobin 11.1(L) 12.0 - 16.0 g/dl [facility] Hematocrit 33.0(L) 37.0 - 47.0 % [facility] Mean Corpuscular Volume 81.7 80.0 - 98.0 fL [facility] Mean Corpuscular Hemoglobin 27.5 27.0 - 33.0 pg [facility] Mean Corpuscular HGB Conc 33.6 31.0 - 35.0 g/dl [facility] Red Cell Distribution Width 14.9 11.0 - 16.0 % [facility] Platelet Count 278 160 - 400 X10*3/uL [facility] Mean Platelet Volume 10.4 9.4 - 12.3 fL [facility] Neutrophils Percent Auto 54.3 45 - 73 % [facility] Imm Gran Pct Auto 0.3 0.0 - 0.4 % [facility] Lymphocytes Percent Auto 34.2 20 - 40 % [facility] Monocytes Percent Auto 7.8 2 - 11 % [facility] Eosinophils Percent Auto 2.7 0 - 4 % [facility] Basophils Percent Auto 0.7 0 - 2 % [facility] NRBC Pct Auto 0.0 0.0 - 0.2 /100WBC [facility] Neutrophils Absolute Auto 3.3 2.0 - 8.3 x10*3/uL [facility] Imm Gran Abs Auto 0.02 0.00 - 0.03 X10*3/uL [facility] Lymphocytes Absolute Auto 2.1 1.2 - 4.9 X10*3/uL [facility] Monocytes Absolute Auto 0.5 0.1 - 1.2 X10*3/uL [facility] Eosinophils Absolute Auto 0.2 0.0 - 0.4 X10*3/uL [facility] Basophils Absolute Auto 0.0 0.0 - 0.2 X10*3/uL [facility] NRBC Abs Auto 0.000 0.0 - 0.012 X10*3/uL [facility] Blood Venous blood specimen / Unknown 08/15/2024 12:12 PM EDT 08/15/2024 1:38 PM EDT us Johnny Ramírez MD LAB BLOOD ORDERABLES Final Result [facility] [address] [place] [address] [phone] * (ABNORMAL) Basic Metabolic Panel (08/15/2024 12:12 PM EDT) Sodium 140 135 - 145 mmol/L [facility] Potassium 3.9 3.3 - 5.1 mmol/L [facility] Chloride 108 96 - 108 mmol/L [facility] Carbon Dioxide 25 22 - 29 mmol/L [facility] Anion Gap 11(L) 12 - 20 [facility] Urea Nitrogen (BUN) 10 9 - 16 mg/dL [facility] Creatinine, Serum 0.65 0.5 - 1.4 mg/dL [facility] Estimated Glomerular Filt Rate >60 [facility] Comment:Chronic Kidney Disea se: Estimated GFR < 60 mL/min/1.96v8Nyvtud Kidney Disease: Estimated GFR < 15 mL/min/1.73m2 Glucose 157(H) 60 - 115 mg/dL [facility] Calcium 10.0 8.4 - 10.2 mg/dL [facility] Blood Venous blood specimen / Unknown 08/15/2024 12:12 PM EDT 08/15/2024 1:12 PM EDT us Johnny Ramírez MD LAB BLOOD ORDERABLES Final Result [facility] [address] [place] [address] [phone] * (ABNORMAL) Urinalysis, Complete, with Reflex to Culture (08/15/2024 12:12 PM EDT) Color Urine Yellow [facility] Appearance Urine Clear [facility] PH 6.0 5.0 - 9.0 [facility] Glucose Urine UA Negative Negative mg/dL [facility] Urine Blood Negative Negative [facility] Specific Coram - Urine 1.015 1.005 - 1.025 [facility] Urine Protein Negative Neg-Trace mg/dL [facility] Urine Ketones Negative Negative mg/dL [facility] Nitrite Urine Negative Negative [facility] Leukocyte Esterase Urine Moderate (2+)(A) Negative [facility] RBC Urine 0-2 0 - 2 /HPF [facility] Urine WBC 0-5 0 - 5 /HPF [facility] Urine Squamous Epithelial Cell 0-2 0 - 2 /HPF [facility] Urine Bacteria None Seen None Seen [facility] Hyaline Casts, Urine 0-2 0 - 2 /LPF [facility] Urine 08/15/2024 12:1 2 PM EDT 08/15/2024 1:05 PM EDT Narrative [facility] - 08/15/2024 2:04 PM EDT Urine, Clean Catch us Johnny Ramírez MD LAB URINE ORDERABLES Final Result [facility] [address] [place] [address] [phone] * (ABNORMAL) POCT HGB A1C (08/15/2024 11:25 AM EDT) Hemoglobin A1C 7.3(A) 4.0 - 6.0 % QC Media Lot # [id number] Lot# Expiration Date Blood 08/15/2024 11:2 5 AM EDT us Johnny Ramírez MD POINT OF CARE TEST EN TER/EDIT ORDERABLES Final Result * POCT Glucose (08/15/2024 11:16 AM EDT) Glucose Blood, POC 198 60 - 200 mg/dL QC Media Lot # [id number] Lot# Expiration Date Blood Capillary blood specimen / Unknown 08/15/2024 11:16 AM EDT Result [facility] Johnny Ramírez MD POINT OF CARE TEST EN TER/EDIT ORDERABLES Final Result documented in this encounter Visit Diagnoses Diagnosis Acute midline low back pain without sciatica- Primary LLQ abdominal pain Abdominal pain, left lower quadrant Type 2 diabetes mellitus without complication, with long-term current use of insulin (CMS/HCC) Adenoma of right adrenal gland documented in this encounter Additional Health Concerns Assessment Noted Time PHQ-9 Depression Total Score: 0 12/09/19 24 9:05 AM EDT documented as of this encounter Care Teams Shadow Graph Weight Operator Relationship Specialty Start Date End Date Johnny Galvan MD [address] [place] [address] PCP - General Internal Medicine 04/26/18 documented as of this encounter
--- OUTSIDE RECORDS SUMMARY | 2024-08-15 14:35 | XMS_ITS | Encounter Summary ---
Demographics Address [address] [facility] [address] [place] [address] Work Phone Mobile Phone Preferred Language es Marital Status Orthodox Affiliation Unknown Race White Ethnic Group or Author Organization [employer] Address [address] [place] [address] Care Team Providers Care Ambulance Officer Name Role Phone Johnny Galvan MD Primary Care Provide r Encounter Details Date Type Department Care Team (Latest Contact Info) Description 07/26/2024 Travel Social History Tobacco Use Types Packs/Day Years [...] documented as of this encounter Care Teams Ambulance Officer Relationship Specialty Start Date End Date Johnny Galvan MD [address] [place] [address] PCP - General Internal Medicine 04/26/18 documented as of this encounter
--- OUTSIDE RECORDS SUMMARY | 2024-08-15 14:35 | XMS_ITS | Data Portability ---
Author Organization [place] - [facility], All[facility] Address [address] [facility] [address] [place] [phone] Care Team Providers Care Microarray Specialist Name Role Phone ANGELINA COWAN Primary Care Provider Assessment Encounter Date Assessment Date Assessment LastModified by Organization Details LastModified Time 02/03/2024 02/03/2024 Patient describes some dysphagia symptoms specifically related to thickened saliva. Encouraged her to stay well-hydrated. She does not have dysphagia for liquids or solid foods. Occasionally her difficulty with the thickened saliva is positional related when she is supine with her head extended over the pillow. I encouraged her to try different sleep positions for this. Her fiberoptic laryngoscopy was benign and her intraoral examination was also normal [email or web address] Not available 02/03/2024 11:21:26 Plan of Treatment Reminders Order Date Submit Date Provider Last Modified By Organization Details Last Modified Time Details Appointments None record ed. Lab None record ed. Referral None record ed. Procedures None record ed. Surgeries None record ed. Imaging None record ed. Medication Orders None record ed. Patient TargetsNo targets recorded. Patient InstructionsNo instructions recorded. Reason for Referral None Reported. Problems Name Problem SNOMED Code Status Onset Date Resolution Date Notes Provider Name and Address Organization Details Recorded Time Dysphagia [id number] Active 024 ULISES AVERY MD [address] [place] [address],[place] [address], [place], [phone] , [place] - [facility] 18:09:31 Problem Notes None recorded. Procedures Surgical History Date Name Laterality Status Provider Name and Address Organization Details Recorded Time 02/03/2024 FOL_DP completed ULISES AVERY MD [address] [facility],[place] [address], [place], [phone], [place] - [facility] 02/02/2024 18:09:23 Imaging Results None recorded. Procedure Notes None recorded. Medical Equipment None Reported. Allergies No known drug allergies Medications Name Sig Start Date Stop Date Status Note LastModified by Organization Details LastModified Time metformin 1,000 mg tablet TAKE 1 TABLET BY MOUTH TWICE A DAY WITH BREAKFAST AND DINNER active Not Available Not Available N ot Available aspirin 81 mg capsule Take 1 capsule every day by oral route. active Not Available Not Available No t Available Vitals Date Recorded Body height Body weight Provider Name and Address Organization Details Last Updated DateTime 02/03/2024 160.02 cm 04031.85 g Freda Gaona [place] [facility] 02/03/2024 10:33:59 Social History None recorded. Functional Status None recorded. Mental Status None recorded. Family History Nothing Reported. Medical History Condition Response Diabetes Y Thyroid Problems Y Gynecological HistoryNo gynecological history recorded. Obstetrics History GPAL:G 0 P 0 0 0 0 Past Encounters Encounter ID Performer Location Encounter Start Date Encounter Closed Date Diagnosis/Indication Diagnosis SNOMED-CT Code Diagnosis ICD10 Code Diagnosis Note [id number] ULISES AVERY MD [facility] [address] [phone] 02/03/2024 10:07:27 02/03/2024 11:54:33 Dysphagia 66342878 R13.10 Health Concerns Section Related Observation LastModified by Organization Detai ls LastModified Time None Recorded Concern Status LastModified by Organization Details LastModified Time None Recorded Advance Directives Directive None Recorded Payers Encounter Date Sequence Insurance Name Policy Number Policy Brown Covered Member ID Brown Member ID Guarantor Name 02/03/2024 1 [place]: [facility] Aaliyah Luu [id number] Aaliyah Khalil Notes Date Note Type Note Provider Name and Address Organization Details Recorded Time 4 text/html dysphagiaonset 2022feels saliva is thickwhen lays down for sleep and extends neck back over pillow she feels swallow is hard.no choking on liquid or solidsno hemoptysisoccasional tender in back of neckno prior neck surgery work - MENTAL HEALTH SPECIALIST ULISES AVERY MD [address] [place] [address], [place], [phone], [place] - [facility] 02/03/2024 11:21:46 OBGyn Episode No OBEpisode recorded.
--- OUTSIDE RECORDS SUMMARY | 2024-08-15 14:35 | XMS_ITS | Encounter Summary ---
Demographics Address [address] [facility] [address] [place] [address] Work Phone Mobile Phone Preferred Language es Marital Status Church Affiliation Unknown Race White Ethnic Group or Author Organization [employer] Address [address] [place] [address] Care Team Providers Care Nut And Bolt Assembler Name Role Phone Johnny Galvan MD Primary Care Provide r Encounter Details Date Type Department Care Team (Latest Contact Info) Description 08/15/2024 Travel Social History Tobacco Use Types Packs/Day [...] documented as of this encounter Care Teams Nut And Bolt Assembler Relationship Specialty Start Date End Date Johnny Galvan MD [address] [place] [address] PCP - General Internal Medicine 04/26/18 documented as of this encounter
== END 2024-08-15 11:46 | disposition home or self-care (01) ==
LOC: HO.HHCX 11:45
PROVIDERS: Visit Provider Internal Medicine
DX: M54.50 Low back pain, unspecified (principal); R10.32 Left lower quadrant pain
CPT/HCPCS: 36415; 72100; 80048; 81001; 85025; 87086

== ENCOUNTER → 2024-08-15 11:46 | Outpatient (BNV) | payer MEDICAID, SELFPAY | PROVIDERS: Visit Provider Radiology Diagnostic Radiology | DX: M54.50 Low back pain, unspecified (principal); M47.895 Other spondylosis, thoracolumbar region | CPT/HCPCS: 72100 ==

== ENCOUNTER 2024-09-05 08:57 | Outpatient (REF) | payer MEDICAID, SELFPAY ==
--- NOTE | ~2024-09-05 | MM_ITS ---
EXAMINATION: MM DIAGNOSTIC DIGITAL BREAST TOMOSYNTHESIS, BILATERAL Bilateral Limited ultrasound. CLINICAL INFORMATION: Bilateral nipple discharge patient does not recall what color and bilateral breast pain. COMPARISON: Mammography: Comparison is made with relevant prior exams. TECHNIQUE: Digital breast mammography with tomosynthesis is performed in both the craniocaudal and mediolateral oblique views along with computer-aided detection (CAD). FINDINGS: There are scattered areas of fibroglandular density (ACR BI-RADS breast composition Category b). There are no significant masses, abnormal calcifications, or other abnormalities. Targeted color Doppler ultrasound scanning in the left lower inner quadrant upper inner quadrant and retroareolar region demonstrates normal fibronodular breast tissue. There is no sonographic abnormality. Targeted color Doppler ultrasound scanning in the right lower inner quadrant retroareolar region and upper inner quadrant demonstrates normal fibronodular breast tissue. There is no sonographic abnormality. Results are provided to the patient at time of visit by the technologist. MM/MM tomosynthesis diagnostic BI IMPRESSION: No mammographic or sonographic abnormality to account for the patient's bilateral areas of pain and bilateral nipple discharge. If the patient has bloody nipple discharge breast MRI should be considered for further evaluation. Recommend clinical evaluation and follow-up. ASSESSMENT: BI-RADS BI-RADS 1 - Negative RECOMMENDATION: 1 year F/U This patient's information was entered into a reminder system with a target due date for their next mammogram. Electronically signed by: Melisa Cartagena DO 09/05/2024 10:56 AM EDT
--- OUTSIDE RECORDS SUMMARY | 2024-09-05 09:27 | XMS_ITS | Clinical Summary ---
Author Organization [employer] Address [address] [place] [address] Care Team Providers Care Slat Grader Name Role Phone Johnny Galvan MD Primary Care Provide r Allergies No known active allergies Medications insulin pen needle (BD Pen Needle Pauline 2nd Gen) 32G x 4 mm miscIndication s:Type 2 diabetes mellitus without complication, without long-term current use of insulin ([facility]) USE WITH INSULIN ONCE A DAY 100 [...] 180 tablet 3 08/19/19 24 025 Discontinued sulfamethoxazo le-trimethopri m (Bactrim DS) 800-160 MG tabletIndicati ons:Acute cystitis without hematuria Take 1 tablet by mouth 2 times daily for 3 days. 6 tablet 08/16/19 25 025 Active Problems Problem Noted Date Diagnosed Date [...] spasm Plain films of cervical spine showed: Pbvs-nh-obnsffup degenerative changes in the cervical spine Patient [...] Etiology ? Plan: Barium Swallow. ENT evaluation [facility] care 08/11/2022 Assessment & Plan (12/09/2023 9:19 AM EDT): Mammogram: 10/01/2023 Normal Pap Smear: 08/23/2023 Colonoscopy: 09/17/2016 Assessment & Plan (08/10/2023 10:22 AM EDT): Mammogram: 12/21/2022 Normal Pap Smear: 05/05/2018. Referred to [facility] for repeat Colonoscopy: 09/17/2016 Assessment & [...] followed [place] Dr Reyes Bariatric [place] [facility] [place]enoma of right adrenal gland 07/01/2022 Assessment [...] 7.2 She was under the care of solar energy systems designer Dr Cameron who discontinued her Lantus and referred her back to Manager Front Office and to us for DM care Plan: [...] 7.2 She was under the care of solar energy systems designer Dr Cameron who discontinued her Lantus and referred her back to Manager Front Office and to us for DM care Plan: [...] 132 She was under the care of solar energy systems designer Dr Cameron who discontinued her Lantus and referred her back to Manager Front Office and to us for DM care Plan: [...] average She was under the care of solar energy systems designer Dr Cameron who recently discontinue her Lantus and referred her back to Manager Front Office and to us for DM care Plan: [...] 101 She was under the care of solar energy systems designer Dr Cameron who recently discontinue her Lantus and referred her back to Manager Front Office and to us for DM care Plan: [...] She is now under the care of solar energy systems designer Dr Cameron who recently discontinue her Lantus and referred her back to Manager Front Office Plan: Continue as per Endocrinology, Has an [...] did very well after being evaluated by Manager Front Office and [employer], she was able to come off Lantus and off Humalog She was doing well only on Metformin 1000 mg po BID, but unfortunately recently her Blood sugars started to go up once a gain and she was restarted back on Lantus at 10 units subcutaneous at bedtime by our [facility] provider Hgb A1c 06/15/2022 was: 11.4 Glucometer [...] Description 08/15/2024 11:15 AM EDT Office Visit [facility] [address] [place] [phone] Johnny Galvan MD Acute midline low back pain without sciatica (Primary Dx); LLQ abdominal pain; Type 2 diabetes mellitus without complication, with long-term current use of insulin ([facility]); Adenoma of right adrenal gland 08/15/2024 Telephone [facility] [address] [place] [address] Abbi Quevedo, RN Results 08/15/2024 Orders Only [facility] [address] [place] [address] [phone] Johnny Galvan MD Acute cystitis without hematuria (Primary Dx) 08/15/2024 Travel 08/13/2024 Refill [facility] [address] [place] [address] Johnny Galvan MD 08/07/2024 Patient Outreach [facility] [address] [place] [address] Johnny Galvan MD Pre-visit Planning (SDOH Screening negative and Tobacco screening negative) 08/04/2024 Population Health Risk Score [facility] Department [address] [place] [phone] Provider, Population Health Generic 08/02/2024 Telephone [facility] [address] [place] [address] Johnny Galvan MD Chart Prep 07/26/2024 10:30 AM EST Procedure Visit [facility] [address] [place] [address] Gerry Ventura CNM Stress incontinence (Primary Dx); Bilateral mastodynia; Visit for pelvic exam 07/26/2024 Travel 06/21/2024 Telephone [facility] [address] [place] [address] Alesia Renteria MA Transition Of Care (Tcm) [...] 08/15/2024 11:09 AM EDT Plan of Treatment Upcoming Encounters Date Type Department Care Team (Late st Contact Info) Description 11/16/2024 1:00 PM EDT Office Visit [facility] [address] [place] [phone] Johnny Galvan MD [address] [place] [phone] Health Maintenance Due Date Last Done Comments [...] 08/15/2024 12:12 PM EDT LLQ abdominal pain XR LUMBAR SPINE 2-3 VIEWS Routine 08/15/2024 11:46 AM EDT Acute midline low back pain without sciatica POCT GLYCATED HEMOGLOBIN, TOTAL Routine 08/15/2024 11:25 AM EDT Type 2 diabetes mellitus without complication, with long-term current use of insulin ([facility]) POCT GLUCOSE Routine 08/15/2024 11:16 AM EDT Type 2 diabetes mellitus without complication, with long-term current use of insulin ([facility]) CULTURE, URINE, ROUTINE Routine 08/15/2024 12:00 AM EDT Acute cystitis without hematuria BI US BREAST LIMITED BILATERAL Urgent 10/01/2023 [...] (08/15/2024 12:12 PM EDT) Color Urine Yellow [facility] Appearance Urine Clear [facility] PH 6.0 5.0 - 9.0 [facility] Glucose Urine UA Negative Negative mg/dL [facility] Urine Blood Negative Negative [facility] Specific [place] - Urine 1.015 1.005 - 1.025 [facility] Urine Protein Negative Neg-Trace mg/dL [facility] Urine Ketones Negative Negative mg/dL [facility] Nitrite Urine Negative Negative [facility] Leukocyte Esterase Urine Moderate (2+)(A) Negative [facility] RBC Urine 0-2 0 - 2 /HPF [facility] Urine WBC 0-5 0 - 5 /HPF [facility] Urine Squamous Epithelial Cell 0-2 0 - 2 /HPF [facility] Urine Bacteria None Seen None Seen [facility] Hyaline Casts, Urine 0-2 0 - 2 /LPF [facility] Urine 08/15/2024 12:1 2 PM EDT 08/15/2024 1:05 PM EDT Narrative [facility] - 08/15/2024 2:04 PM EDT Urine, Clean Catch us Johnny Ramírez MD LAB URINE ORDERABLES Final Result [facility] [address] [place] [address] [phone] * (ABNORMAL) CBC auto differential (08/15/2024 12:12 PM EDT) White Blood Count 6.0 4.8 - 10.8 X10*3/uL [facility] Red Blood Count 4.04(L) 4.20 - 5.50 X10*6/uL [facility] Hemoglobin 11.1(L) 12.0 - 16.0 g/dl [facility] Hematocrit 33.0(L) 37.0 - 47.0 % [facility] Mean Corpuscular Volume 81.7 80.0 - 98.0 fL [facility] Mean Corpuscular Hemoglobin 27.5 27.0 - 33.0 pg [facility] Mean Corpuscular HGB Conc 33.6 31.0 - 35.0 g/dl [facility] Red Cell Distribution Width 14.9 11.0 - 16.0 % [facility] Platelet Count 278 160 - 400 X10*3/uL [facility] Mean Platelet Volume 10.4 9.4 - 12.3 fL [facility] Neutrophils Percent Auto 54.3 45 - 73 % [facility] Imm Gran Pct Auto 0.3 0.0 - 0.4 % [facility] Lymphocytes Percent Auto 34.2 20 - 40 % [facility] Monocytes Percent Auto 7.8 2 - 11 % [facility] Eosinophils Percent Auto 2.7 0 - 4 % [facility] Basophils Percent Auto 0.7 0 - 2 % [facility] NRBC Pct Auto 0.0 0.0 - 0.2 /100WBC [facility] Neutrophils Absolute Auto 3.3 2.0 - 8.3 x10*3/uL [facility] Imm Gran Abs Auto 0.02 0.00 - 0.03 X10*3/uL [facility] Lymphocytes Absolute Auto 2.1 1.2 - 4.9 X10*3/uL [facility] Monocytes Absolute Auto 0.5 0.1 - 1.2 X10*3/uL [facility] Eosinophils Absolute Auto 0.2 0.0 - 0.4 X10*3/uL [facility] Basophils Absolute Auto 0.0 0.0 - 0.2 X10*3/uL [facility] NRBC Abs Auto 0.000 0.0 - 0.012 X10*3/uL [facility] Blood Venous blood specimen / Unknown 08/15/2024 12:12 PM EDT 08/15/2024 1:38 PM EDT us Johnny Ramírez MD LAB BLOOD ORDERABLES Final Result [facility] [address] [place] [address] [phone] * (ABNORMAL) Basic Metabolic Panel (08/15/2024 12:12 PM EDT) Sodium 140 135 - 145 mmol/L [facility] Potassium 3.9 3.3 - 5.1 mmol/L [facility] Chloride 108 96 - 108 mmol/L [facility] Carbon Dioxide 25 22 - 29 mmol/L [facility] Anion Gap 11(L) 12 - 20 [facility] Urea Nitrogen (BUN) 10 9 - 16 mg/dL [facility] Creatinine, Serum 0.65 0.5 - 1.4 mg/dL [facility] Estimated Glomerular Filt Rate >60 [facility] Comment:Chronic Kidney Disea se: Estimated GFR < 60 mL/min/1.09j3Uuffyc Kidney Disease: Estimated GFR < 15 mL/min/1.73m2 Glucose 157(H) 60 - 115 mg/dL [facility] Calcium 10.0 8.4 - 10.2 mg/dL [facility] Blood Venous blood specimen / Unknown 08/15/2024 12:12 PM EDT 08/15/2024 1:12 PM EDT us Johnny Ramírez MD LAB BLOOD ORDERABLES Final Result [facility] [address] [place] [address] [phone] * XR Lumbar Spine 2-3 Views (08/15/2024 11:46 AM EDT) Anatomical Region Laterality Modality Spine, L-spine Radiographic Jessica ging 08/15/2024 11:4 6 AM EDT Narrative 08/16/2024 7:09 AM EDT ?[facility] ?[address] ?[place] [address] ?XRay Report ? Signed ? Patient: Luu,Aaliyah E ?MR#: [id number] ?? 213 ? : 1965 ?Acct:[id number] ? Age/Sex: 59 / F ?ADM Date: 08/15/24 ? Loc: HO.HHCX ? Attending Dr: Johnny Banuelos MD ? Ordering Physician: Johnny Banuelos MD ?? Date of Service: 08/15/24 ?? Procedure(s): XR lumbar spine 2-3V ?? Accession Number(s): [id number] ? cc: Johnny Banuelos MD ? EXAMINATION: ?? XR LUMBOSACRAL SPINE ? CLINICAL INFORMATION: ?? low back pain ? COMPARISON: ?? July 06, 2014 ? TECHNIQUE: ?? Three views of the lumbosacral spine. ? FINDINGS: ?? Endplate sclerosis decreased intervertebral disc height marginal ?? osteophyte formation at T10-11, L1-2 and L2-3 levels. Syndesmophyte ?? formation T10-11. ?? No acute cortical disruption or malalignment. No lytic or lytic ?? lesions. ? XR/XR lumbar spine 2-3V ?? IMPRESSION: ?? Multilevel thoracolumbar spondylosis involving mostly T10-11, L1-2 and ?? L2-3 levels. ? Electronically signed by: ??Skyler Barlow MD ??08/16/2024 07:06 AM ?? EDT ? Dictated By: ?Skyler Warren MD ? Signed By: ?<Electronically signed by Skyler Quevedo MD in OV> ? 08/16/24 0706 ? DD/ 1146 ? TD/TT: 08/15/24 1158 ? Application Services Manager: ? Procedure Note Chepe Waller - 08/16/2024 [facility] [address] [place] [address] XRay Report Signed Patient: Aailyah Luu EMR#: [id number] 213 : 1965Acct:[id number] Age/Sex: 59 / FADM Date: 08/15/24 Loc: HO.HHCX Attending Dr: Johnny Banuelos MD Ordering Physician: DoJohnny Downing MD Date of Service: 08/15/24 Procedure(s): XR lumbar spine 2-3V Accession Number(s): [id number] cc: Johnny Banuelos MD EXAMINATION: XR LUMBOSACRAL SPINE CLINICAL INFORMATION: low back pain COMPARISON: July 06, 2014 TECHNIQUE: Three views of the lumbosacral spine. FINDINGS: Endplate sclerosis decreased intervertebral disc height marginal osteophyte formation at T10-11, L1-2 and L2-3 levels. Syndesmophyte formation T10-11. No acute cortical disruption or malalignment. No lytic or lytic lesions. XR/XR lumbar spine 2-3V IMPRESSION: Multilevel thoracolumbar spondylosis involving mostly T10-11, L1-2 and L2-3 levels. Electronically signed by: Skyler Barlow MD 08/16/2024 07:06 AM EDT RP Dictated By: Skyler Warren MD Signed By: <Electronically signed by Skyler Quevedo MDin OV> 08/16/24 0706 DD/ 1146 TD/TT: 08/15/24 1158 Application Services Manager: Johnny Ramírez MD IMG XR PROCEDURES Brent cassandra Result - Final * (ABNORMAL) POCT HGB A1C (08/15/2024 11:25 AM EDT) Hemoglobin A1C 7.3(A) 4.0 - 6.0 % QC Media Lot # [id number] Lot# Expiration Date Blood 08/15/2024 11:2 5 AM EDT Johnny Ramírez MD POINT OF CARE TEST EN TER/EDIT ORDERABLES Final Result * POCT Glucose (08/15/2024 11:16 AM EDT) Glucose Blood, POC 198 60 - 200 mg/dL QC Media Lot # [id number] Lot# Expiration Date [id number] Blood Capillary blood specimen / Unknown 08/15/2024 11:16 AM EDT Johnny Ramírez MD POINT OF CARE TEST EN TER/EDIT ORDERABLES Final Result * Culture, Urine, Routine (08/15/2024 12:00 AM EDT) Urine Urine specimen obtained by clean catch procedure / Unknown 08/15/2024 08/15/2024 Comment:UACC Narrative [facility] - 08/16/2024 12:58 PM EDT Urine Culture Report Result Urine Culture < 10,000 cfu/ml Specimen Source: Urine clean catch Johnny Ramírez MD LAB MICROBIOLOGY - NERAL ORDERABLES Final Result [facility] [address] [place] [address] [phone] * BI US Breast Limited Bilateral (10/01/2023 2:23 PM EDT) Anatomical Region Laterality Modality Breast Bilateral Ultrasound 10/01/2023 2:23 PM EDT Narrative 10/01/2023 2:41 PM EDT ? [facility] ? [address] ?[place] [address] ? Ultrasound Report ? Signed ? Patient: Luu,Aaliyah E ?MR#: [id number] ?? 213 ? : 1965 ?Acct:[id number] ? Age/Sex: 58 / F ?ADM Date: 10/01/23 ? Loc: HO.MAMMO ? Attending Dr: Gerry Ventura CNM ? Ordering Physician: GERRY VENTURA CNChad ?? Date of Service: 10/01/23 ?? Procedure(s): US breast BI limited mamm only ?? Accession Number(s): [id number] ? cc: Johnny Banuelos MD; GERRY VENTURA [...] is ?? no retroareolar abnormality identified. ? US/US breast BI limited mamm only ?? IMPRESSION: [...] signed by Denilson Lacey MD in OV> ?05/10/ 1436 ? DD/ 1423 ? TD/TT: ? Application Services Manager: ? Procedure Note Chepe Waller - 10/01/2023 [facility] [address] [place], [place] [address] Ultrasound Report Signed Patient: Aaliyah Luu EMR#: [id number] 213 : 1965Acct:[id number] Age/Sex: 58 / FADM Date: 10/01/23 Loc: HO.MAMMO Attending Dr: Gerry Ventura CNM Ordering Physician: GERRY VENTURA CNM Date of Service: 10/01/23 Procedure(s): US breast BI limited mamm only Accession Number(s): [id number] cc: Johnny Banuelos MD; GERRY VENTURA CNM [...] in OV> 10/01/23 1436 DD/ 1423 TD/TT: Application Services Manager: us Gerry PERALES IMG US PROCEDURES Final R esult * HPV mRNA E6/E7 w/Reflex to HPV Genotypes 16, 18/45 (08/23/2023 9:15 AM EDT) HPV nRNA E6/E7 Not Detected Not Detected [facility] Comment:Methodology: Transcr iption-Mediated AmplificationThis assay detects E6/E7 viral messenger RNA (mRNA) from 14high-risk HPV types (16,18,31,33,35,39,45,51,52,56,58,59,66,68).Cervical sources are required for HPV testing.If a vaginal source from a patient who has had atotal hysterectomy with removal of cervix wassubmitted, please contact the testing laboratoryfor alternative testing options.For additional information, please refer tohttp://education.AdvanDx/faq/EOL551p4(This link if provided for information/educational purposes only.)THIS TEST WAS PERFORMED AT:[facility] [place] [phone] ARCEO MD HPV mRNA E6/E7 [facility] HPV 16 RNA [facility] HPV 18/45 RNA [facility] 08/23/2023 9:15 AM EDT 08/24/2023 7:00 AM EDT us Gerry Ventura CNM LAB CYTOLOGY ORDERABLES F inal Result [facility] [address] [place] [phone] * Pap Smear (08/23/2023 9:15 AM EDT) Swab Cervix uteri structure / Unknown 08/23/2023 9:15 AM EDT 08/24/2023 7:00 AM EDT Narrative [facility] - 09/10/2023 9:24 AM EDT ----- ------- Name: JusAaliyah Lau ?Age/Sex: 58/F ? : 1965 Unit#: [id number] ?? Attend Dr: GERRY VENTURA CNM ?Re08/23/23 ?Status: DEP REF ? Location: HO.HHCLNP ? Disch: ? ----- ------- SPEC : [id number] ? RECD: 08/24/23 ? STATUS: ??SOUT ? REQ NUM: [id number] ? BRAD: 08/23/23 ? SUBM DR: GERRY VENTURA CNM ? ENTERED: ??08/24/23 ?SP TYPE: Pap Smr ?OTHR : ? [...] 66, 68) ?? HPV testing performed by [facility], [place], [place]. ??See reference laboratory ?? portion of the EMR for entire report. ?Clinical Information LMP: Postmenopausal Previous PAP test: 04/2018, WNL, HPV neg Other surgery: Other history: ? Material Received ?? ThinPrep-Vaginal/Cervical ----- ------- Signed (signature on file) KINGS Ramirez (ASCP) 09/10/23 0924 ? ----- ------- ? END OF REPORT ? Gerry Ventura CNM LAB CYTOLOGY ORDERABLES F inal Result Performing Organization Address [facility] Co de Phone Number [facility] [address] [place] [address] [phone] * Lipid Panel, Standard (07/27/2022 9:28 AM EST) Triglycerides 97 mg/dL [facility] Comment:Desirable Triglyceri de: less than 150 mg/dLBorderline High Triglyceride 150-199 mg/dLHigh Triglyceride: 200-499 mg/dLVery High Triglyceride: greater than or equal to 5OO mg/dL Cholesterol 228 mg/dL [facility] Comment:Desirable Cholestero l: less than 200 mg/dLBorderline High Cholesterol: 200-239 mg/dLHigh Cholesterol: greater than 239 mg/dL LDL Cholesterol Calculated 147 mg/dl [facility] Comment:Desirable LDL: less than 100 mg/dLNear Optimal/Above Optimal LDL: 110- 129 mg/dLBorderline High LDL: 130-159 mg/dLHigh LDL: 160-189 mg/dLVery High LDL: greater than or equal to 190 mg/dL HDL Cholesterol 62 mg/dL [facility] Comment:Desirable HDL: great er than 40 mg/dL Note: This HDL assay may give artificially low results in patients with liver disease. 07/27/2022 9:28 AM EST 07/27/2022 9:29 AM EST us [facility] External Provider LAB BLO OD ORDERABLES Final Result Performing Organization Address [facility]/ZIP Co de Phone Number [facility] [address] [place] [address] [phone] * Albumin, Random Urine W/Creatinine (07/17/2022 12:38 PM EST) Creatinine, Urine 95.47 mg/dL [facility] Microalbumin Urine 18.0 mg/L [facility] Microalbum Creatinine Ratio Ur 18.8 ug/mg cr [facility] Comment:Albumin/Creatinine R atio Reference Ranges: Normal: < 30 ug/mg creatinine Microalbuminuria: 30 - 300 ug/mg creatinineClinical Albuminuria: > 300 ug/mg creatinine 07/17/2022 12:3 8 PM EST 07/17/2022 1:20 PM EST us [facility] External Provider LAB URI NE ORDERABLES Final Result [facility] [address] [place] [address] [phone] from Last 3 Months or Most Recently Relevant to Health Maintenance Insurance [facility] C3 HSN FULL * Guarantor: Aaliyah Luu Account Type Relation to Patient Date of Phone Billing Address Personal/Family Self [address] [place] [address] Care Teams Slat Grader Relationship Specialty Start Date End Date Johnny Galvan MD [address] [place] [address] PCP - General Internal Medicine 04/26/18
--- OUTSIDE RECORDS SUMMARY | 2024-09-05 09:27 | XMS_ITS | Data Portability ---
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 Procedures Surgical History Date Name Laterality Status Provider Name and Address Organization Details Recorded Time 02/03/2024 FOL_DP completed ULISES AVERY MD [address] [facility],[place] [address], [place], [phone], [place] [facility] 02/02/2024 18:09:23 Imaging Results None recorded. Procedure [...] Details Last Updated DateTime 02/03/2024 160.02 cm 46873.85 g Freda Gaona [place] [facility] 02/03/2024 10:33:59 Social History None recorded. Functional Status None recorded. Mental Status None recorded. Family History Nothing Reported. Medical History Condition Response Diabetes Y Thyroid Problems Y Gynecological HistoryNo gynecological history recorded. Obstetrics History GPAL:G 0 P 0 0 0 0 Past Encounters Encounter ID Performer Location Encounter Start Date Encounter Closed Date Diagnosis/Indication Diagnosis SNOMED-CT Code Diagnosis ICD10 Code Diagnosis Note [id number] ULISES AVERY MD [facility] [address] [phone] 02/03/2024 10:07:27 02/03/2024 11:54:33 Dysphagia 67448574 R13.10 Health Concerns Section Related Observation LastModified by Organization Detai ls LastModified Time None Recorded Concern Status LastModified by Organization Details LastModified Time None Recorded Advance Directives Directive None Recorded Payers Encounter Date Sequence Insurance Name Policy Number Policy Brown Covered Member ID Brown Member ID Guarantor Name 02/03/2024 1 [place] [facility] Aaliyah Luu [id number] Aaliyah Khalil Notes Date Note Type Note Provider Name and Address Organization Details Recorded Time 4 text/html dysphagiaonset 2022feels saliva is thickwhen lays down for sleep and extends neck back over pillow she feels swallow is hard.no choking on liquid or solidsno hemoptysisoccasional tender in back of neckno prior neck surgery work - 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
== END 2024-09-05 08:58 | disposition home or self-care (01) ==
LOC: HO.MAMMO 08:57
PROVIDERS: PCP Internal Medicine; Visit Provider Advanced Practice Midwife
DX: N64.4 Mastodynia (principal)
CPT/HCPCS: 76642; 77062; 77066

== ENCOUNTER → 2024-09-05 08:59 | Outpatient (BNV) | payer MEDICAID, SELFPAY | PROVIDERS: PCP Internal Medicine; Visit Provider Internal Medicine | DX: R92.323 Mammographic fibroglandular density, bilateral breasts (principal); N64.52 Nipple discharge; N64.4 Mastodynia | CPT/HCPCS: 76642; 77062; 77066 ==

== ENCOUNTER 2024-10-10 06:46 | Outpatient (REF) | payer MEDICAID, SELFPAY ==
--- NOTE | ~2024-10-10 | CT_ITS ---
CLINICAL HISTORY: LLQ abdominal pain rule out diverticuliti CT abdomen and pelvis with contrast Comparison: None Findings: No consolidation or effusion. There is cholelithiasis without definitive signs of cholecystitis. There is no biliary ductal dilatation. The liver is otherwise unremarkable. There is a 2.8 cm right adrenal nodule without any gross fat. The left adrenal gland is normal. The rest of the solid organs are unremarkable. No bowel obstruction, pneumoperitoneum, or pneumatosis. Pelvic contents unremarkable. Normal appendix. No acute fracture. IMPRESSION: 1. Cholelithiasis without evidence of cholecystitis. 2. 2.8 cm right adrenal nodule. Please correlate with outpatient adrenal protocol MRI. This document has been electronically signed by: Kofi Nova MD on 10/12/2024 11:32:53
--- OUTSIDE RECORDS SUMMARY | 2024-10-10 06:48 | XMS_ITS | Data Portability ---
Author Organization [place] - [facility], Allergy Address [address] [facility] [address] [place] [phone] Care Team Providers Care It Application Architect Name Role Phone ANGELINA COWAN Primary Care [...] and Address Organization Details Recorded Time Dysphagia [id number] Active 024 ULISES AVERY MD [address] [place] [address],[place] [address], [place], [phone] , [place] - [facility] 18:09:31 Problem Notes None recorded. Procedures Surgical History Date Name Laterality Status Provider Name and Address Organization Details Recorded Time 02/03/2024 FOL_DP completed ULISES AVERY MD [address] [facility],[place] [address], [place], [phone], [place] [facility] 02/02/2024 18:09:23 Imaging Results None recorded. Procedure [...] Details Last Updated DateTime 02/03/2024 160.02 cm 74308.85 g Freda Gaona [place] [facility] 02/03/2024 10:33:59 Social History None recorded. Functional Status None recorded. Mental Status None recorded. Family History Nothing Reported. Medical History Condition Response Diabetes Y Thyroid Problems Y Gynecological HistoryNo gynecological history recorded. Obstetrics History GPAL:G 0 P 0 0 0 0 Past Encounters Encounter ID Performer Location Encounter Start Date Encounter Closed Date Diagnosis/Indication Diagnosis SNOMED-CT Code Diagnosis ICD10 Code Diagnosis Note [id number] ULISES AVERY MD [facility] [address] [phone] 02/03/2024 10:07:27 02/03/2024 11:54:33 Dysphagia [id number] R13.10 Health Concerns Section Related Observation LastModified by Organization Detai ls LastModified Time None Recorded Concern Status LastModified by Organization Details LastModified Time None Recorded Advance Directives Directive None Recorded Payers Insurance Date Sequence Insurance Name Policy Number Policy Brown Covered Member ID Brown Member ID Guarantor Name 02/03/2024 1 MEDICAID-[place]: [facility] Aaliyah Luu [id number] Aaliyah Khalil Notes Date Note Type Note Provider Name and Address Organization Details Recorded Time 4 text/html dysphagiaonset 2022feels saliva is thickwhen lays down for sleep and extends neck back over pillow she feels swallow is hard.no choking on liquid or solidsno hemoptysisoccasional tender in back of neckno prior neck surgery work - 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
[2024-10-10] MEDS: Barium Sulfate Oral (Berry) 450 ML ORAL.SUSP 900 ML PO (09:56)
[2024-10-10] MEDS: iohexoL 350 MG/ML 100 ML INFUS..BTL IV (09:56)
[2024-10-10 12:52] LABS: Creatinine POC 0.9 mg/dL (0.5-1.4); GFR POC > 60
== END 2024-10-10 06:47 | disposition home or self-care (01) ==
LOC: HO.CT 06:46
PROVIDERS: PCP Internal Medicine; Visit Provider Internal Medicine
DX: R10.32 Left lower quadrant pain (principal)
CPT/HCPCS: 74177; 82565; Q9967

== ENCOUNTER → 2024-10-10 06:48 | Outpatient (BNV) | payer MEDICAID, SELFPAY | PROVIDERS: PCP Internal Medicine; Visit Provider Radiology Diagnostic Radiology | DX: D44.11 Neoplasm of uncertain behavior of right adrenal gland (principal) | CPT/HCPCS: 74177 ==

== ENCOUNTER 2024-12-25 10:25 | Outpatient (REF) | payer MEDICAID, SELFPAY ==
--- NOTE | ~2024-12-25 | US_ITS ---
EXAMINATION: US THYROID HISTORY: E04.2 - Nontoxic multinodular goiter TECHNIQUE: Real-time grayscale ultrasound imaging was performed and images were reviewed. COMPARISON: Comparison is made with the prior examination dated 12/30/2023. FINDINGS: SIZE: The right thyroid lobe measures 6.1 x 2.1 x 2.5 cm. The left thyroid lobe measures 5.6 x 2.0 x 2.4 cm. The isthmus measures 5 mm. FLOW: Flow to the gland is normal. ECHOGENICITY: The echotexture of the gland is heterogeneous. NODULES: Again seen is a 4 x 3 x 4 mm spongiform nodule at the upper pole of the right thyroid lobe, a 6 x 5 x 5 mm spongiform nodule at the upper pole of the left thyroid lobe, and a 5 x 5 x 6 mm cyst at the lower pole of the left thyroid lobe. In addition, there are solid nodules noted as described below: Nodule #: 1 Location: Midportion of the right thyroid lobe measuring 10 x 7 x 10 mm (previously 10 x 6 x 7 mm). Shape: Wider than tall (0 points) Margins: Ill-defined (0 points) Echotexture: Isoechoic (1 point) Composition: Solid (2 points) Calcifications: None (0 points) Total points: 3 TIRADS: TR3: Mildly suspicious. Nodule #: 2 Location: Lower pole of the right thyroid lobe measuring 6 x 5 x 7 mm (previously 9 x 6 x 8 mm). Shape: Wider than tall (0 points) Margins: Smooth (0 points) Echotexture: Hypoechoic (2 points) Composition: Solid (2 points) Calcifications: None (0 points) Total points: 4 TIRADS: TR4: Moderately suspicious. US/US thyroid IMPRESSION: Stable subcentimeter bilateral thyroid nodules as described. ACR TI-RADS Guidelines TR1 (0 points): Benign. No follow-up or biopsy required TR2 (2 points): Not Suspicious. No biopsy or follow up indicated TR3 (3 points): Mildly Suspicious. FNA if >= 2.5 cm, Follow if >= 1.5 cm TR4 (4-6 points): Moderately Suspicious. FNA if >= 1.5 cm, Follow if >= 1.0 cm TR5 (>=7 points): Highly Suspicious. FNA if >= 1.0 cm, Follow if >= 0.5 cm Electronically signed by: José Black MD 12/25/2024 11:08 AM EDT
--- OUTSIDE RECORDS SUMMARY | 2024-12-25 11:07 | XMS_ITS | Clinical Summary ---
Author Organization [employer] Address [address] [place] [address] Care Team Providers Care Escort Car Driver Name Role Phone Johnny Galvan MD Primary Care Provide r Allergies No known active allergies Medications insulin pen needle (BD Pen Needle Pauline 2nd Gen) 32G x 4 mm miscIndications :Type 2 diabetes mellitus without complication, without long-term current use of insulin ([facility]) USE WITH INSULIN ONCE A DAY 100 each 1 3 Active glucose blood (FREESTYLE LITE) test strip 1 each every 8 (eight) hours. 0 Active aspirin 81 MG EC tablet Take 1 tablet by mouth at bed time. 0 Active hydrocortisone (Proctosol HC) 2.5 % rectal creamIndication s:Anal lesion Insert into the rectum 2 times daily. 28 g 1 3 Active metFORMIN (Glucophage) 1000 MG tablet TAKE 1 TABLET BY MOUTH TWICE A DAY WITH BREAKFAST AND DINNER 180 tablet 3 5 Active tiZANidine (Zanaflex) 2 MG tabletIndicatio ns:Acute midline low back pain without sciatica Take 1 tablet (2 mg) by mouth every 8 (eight) hours if needed for muscle spasms. 30 tablet 5 Active meloxicam (Mobic) 15 MG tabletIndicatio ns:Acute midline low back pain without sciatica Take 1 tablet (15 mg) by mouth Once per day. 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 Plan: Barium Swallow. ENT evaluation Preventative health care 08/11/2022 Assessment & Plan (12/09/2023 9:19 AM EDT): Mammogram: 10/01/2023 Normal Pap Smear: 08/23/2023 Colonoscopy: 09/17/2016 Assessment & Plan (08/10/2023 10:22 AM EDT): Mammogram: 12/21/2022 Normal Pap Smear: 05/05/2018. Referred to [facility] for repeat Colonoscopy: 09/17/2016 Assessment & [...] followed by Dr Reyes Bariatric surgeon at [facility] Adenoma of right adrenal [...] 7.2 She was under the care of gallery host Dr Cameron who discontinued her Lantus and referred her back to Local Delivery Truck Driver and to us for DM care Plan: [...] 7.2 She was under the care of gallery host Dr Cameron who discontinued her Lantus and referred her back to Local Delivery Truck Driver and to us for DM care Plan: [...] 132 She was under the care of gallery host Dr Cameron who discontinued her Lantus and referred her back to Local Delivery Truck Driver and to us for DM care Plan: [...] average She was under the care of gallery host Dr Cameron who recently discontinue her Lantus and referred her back to Local Delivery Truck Driver and to us for DM care Plan: [...] 101 She was under the care of gallery host Dr Cameron who recently discontinue her Lantus and referred her back to Local Delivery Truck Driver and to us for DM care Plan: [...] She is now under the care of gallery host Dr Cameron who recently discontinue her Lantus and referred her back to Local Delivery Truck Driver Plan: Continue as per Endocrinology, Has an [...] did very well after being evaluated by Local Delivery Truck Driver and Senior It Security Analyst, she was able to come off Lantus and off Humalog She was doing well only on Metformin 1000 mg po BID, but unfortunately recently her Blood sugars started to go up once a gain and she was restarted back on Lantus at 10 units subcutaneous at bedtime by our [facility] provider Hgb A1c 06/15/2022 was: 11.4 Glucometer [...] Encounters Date Type Department Care Team Description 10/10/2024 Orders Only [facility] [address] [place] [address] Johnny Galvan MD from Last 3 Months Immunizations Immunization Administration Dates Next Due Influenza injectable quadriv [...] 90 08/15/2024 11:09 AM EDT Temperature 36.1 C (96.9 F) 08/15/2024 11:09 AM EDT Respiratory Rate 20 08/15/2024 11:09 AM EDT [...] Vaccine ( season) 2024 08/09/2021, 10/15/2020, 09/17/2020 Diabetes: Hemoglobin A1C 11/15/202408/15/ 025, 04/11/2024, 12/09/2023, Additional history exists Depression Screening 12/08/2024 12/09/2023, 12/09/19 Influenza Vaccine (#1) 2025 03/04/2021, 2018 Alcohol/Substance Use Screening 04/11/2025 04/11/2024 Disability Screening 04/11/2025 04/11/2024 SDOH Screening 08/07/2025 08/07/2024 Tobacco Screening 08/15/2025 08/15/2024 Mammogram 09/05/2025 09/05/2024, 08/22, 10/01/2023, Additional history exists DTaP/Tdap/Td Vaccines (2 - Td or Tdap) [...] patient's age to complete this topic Meningococcal B Vaccine Aged Out No l onger eligible based on patient's age to complete [...] Procedure Name Priority Date/Time Associated Diagnosis Comments CT ABDOMEN PELVIS W CONTRAST Routine 10/12/2024 11:32 AM EDT LLQ abdominal pain POCT CREATININE GFR Routine 10/10/2024 9 :05 AM EDT BI US BREAST LIMITED BILATERAL Routine 09/05/2024 9:45 AM EDT POCT GLYCATED HEMOGLOBIN, TOTAL Routine 08/15/2024 11:25 AM EDT Type 2 diabetes mellitus without complication, with long-term current use of insulin (CMS/HCC) HPV MRNA E6/E7 REFLEX TO HPV 16, 18/45 Routine 08/23/2023 9:15 AM EDT PAP SMEAR Routine 08/23/2023 9:15 AM EDT Cervical cancer screening LIPID PANEL, STANDARD Routine 07/27/2022 9:28 AM EST ALBUMIN, RANDOM URINE W/CREATININE Routine 07/17/2022 12:38 PM EST from Last 3 Months or Most Recently Relevant to Health Maintenance Results * CT Abdomen Pelvis w/ Contrast (10/12/2024 11:32 AM EDT) Anatomical Region Laterality Modality Body, Pelvis, Abdomen Computed T omography 10/12/2024 11:3 2 AM EDT Narrative 10/12/2024 11:34 AM EDT [place] [address] CT Scan Report Signed Patient: Aaliyah Luu MR#: [id number] 213 : 1965 Acct:[id number] Age/Sex: 59 / F ADM Date: 10/10/24 Loc: HO.CT Attending Dr: Johnny Banuelos MD Ordering Physician: Johnny Banuelos MD Date of Service: 10/10/24 Procedure(s): CT abdomen pelvis w IV con Accession Number(s): [id number] cc: Johnny Banuelos MD Report Number: [id number]: Total DLP = 458.00 mGy-cm CLINICAL HISTORY: LLQ abdominal pain rule out diverticuliti CT abdomen and pelvis with contrast Comparison: None Findings: No consolidation or effusion. There is cholelithiasis without definitive signs of cholecystitis. There is no biliary ductal dilatation. The liver is otherwise unremarkable. There is a 2.8 cm right adrenal nodule without any gross fat. The left adrenal gland is normal. The rest of the solid organs are unremarkable. No bowel obstruction, pneumoperitoneum, or pneumatosis. Pelvic contents unremarkable. Normal appendix. No acute fracture. IMPRESSION: 1. Cholelithiasis without evidence of cholecystitis. 2. 2.8 cm right adrenal nodule. Please correlate with outpatient adrenal protocol MRI. This document has been electronically signed by: Kofi Nova MD on 10/12/2024 11:32:53 Dictated By: Kofi Nova MD Signed By: <Electronically signed by Kofi Noav MD in OV> 10/12/24 1133 DD/ 1132 TD/TT: 10/12/24 1132 Zone Manager: Procedure Note Donotuseinterpreter, Image - 10/12/[address] [place] [address] [address] Scan Report Signed Patient: Aaliyah Luu EMR#: [id number] 213 : 1965Acct:[id number] Age/Sex: 59 / FADM Date: 10/10/24 Loc: HO.CT Attending Dr: Johnny Banuelos MD Ordering Physician: Johnny Banuelos MD Date of Service: 10/10/24 Procedure(s): CT abdomen pelvis w IV con Accession Number(s): [id number] cc: Johnny Banuelos MD Report Number: [id number]: Total DLP = 458.00 mGy-cm CLINICAL HISTORY: LLQ abdominal pain rule out diverticuliti CT abdomen and pelvis with contrast Comparison: None Findings: No consolidation or effusion. There is cholelithiasis without definitive signs of cholecystitis. There is no biliary ductal dilatation. The liver is otherwise unremarkable. There is a 2.8 cm right adrenal nodule without any gross fat. The left adrenal gland is normal. The rest of the solid organs are unremarkable. No bowel obstruction, pneumoperitoneum, or pneumatosis. Pelvic contents unremarkable. Normal appendix. No acute fracture. IMPRESSION: 1. Cholelithiasis without evidence of cholecystitis. 2. 2.8 cm right adrenal nodule. Please correlate with outpatient adrenal protocol MRI. This document has been electronically signed by: Kofi Nova MD on 10/12/2024 11:32:53 Dictated By: Kofi Nova MD Signed By: <Electronically signed by Kofi Nova MD in OV> 10/12/24 1133 DD/ 1132 TD/TT: 10/12/24 1132 Zone Manager: Johnny Ramírez MD IMG CT PROCEDURES Brent cassandra Result - Final * POCT Creatinine GFR (10/10/2024 9:05 AM EDT) POCT Creatinine 0.9 0.5 - 1.4 mg/dL [facility] GFR POC >60 [facility] Comment:Chronic Kidney Disea se: Estimated GFR < 60 mL/min/1.52m3Yxejlj Kidney Disease: Estimated GFR < 15 mL/min/1.73m2 10/10/2024 9:05 AM EDT 10/10/2024 12:48 PM EDT Narrative [facility] - 10/10/2024 12:52 PM EDT [id number] Johnny Ramírez MD LAB POINT OF CARE TEST DOCKED DEVICE ORDERABLES Final Result [facility] [address] [place] [address] [phone] * BI US Breast Limited Bilateral (09/05/2024 9:45 AM EDT) Anatomical Region Laterality Modality Breast Bilateral Ultrasound 09/05/2024 9:45 AM EDT Narrative 09/05/2024 10:58 AM EDT [facility] [address] [place] [address] Ultrasound Report Signed Patient: Aaliyah Luu MR#: [id number] 213 : 1965 Acct:[id number] Age/Sex: 59 / F ADM Date: 09/05/24 Loc: HO.MAMMO Attending Dr: Gerry Ventura CNM Ordering Physician: GERRY VENTURA CNM Date of Service: 09/05/24 Procedure(s): US breast BI limited mamm only Accession Number(s): [id number] cc: Johnny Banuelos MD; GERRY VENTURA CNM EXAMINATION: MM DIAGNOSTIC DIGITAL BREAST TOMOSYNTHESIS, BILATERAL Bilateral Limited ultrasound. CLINICAL INFORMATION: Bilateral nipple discharge patient does not recall what color and bilateral breast pain. COMPARISON: Mammography: Comparison is made with relevant prior exams. TECHNIQUE: Digital breast mammography with tomosynthesis is performed in both the craniocaudal and mediolateral oblique views along with computer-aided detection (CAD). FINDINGS: There are scattered areas of fibroglandular density (ACR BI-RADS breast composition Category b). There are no significant masses, abnormal calcifications, or other abnormalities. Targeted color Doppler ultrasound scanning in the left lower inner quadrant upper inner quadrant and retroareolar region demonstrates normal fibronodular breast tissue. There is no sonographic abnormality. Targeted color Doppler ultrasound scanning in the right lower inner quadrant retroareolar region and upper inner quadrant demonstrates normal fibronodular breast tissue. There is no sonographic abnormality. Results are provided to the patient at time of visit by the technologist. US/US breast BI limited mamm only IMPRESSION: No mammographic or sonographic abnormality to account for the patient's bilateral areas of pain and bilateral nipple discharge. If the patient has bloody nipple discharge breast MRI should be considered for further evaluation. Recommend clinical evaluation and follow-up. ASSESSMENT: BI-RADS BI-RADS 1 - Negative RECOMMENDATION: 1 year F/U This patient's information was entered into a reminder system with a target due date for their next mammogram. Electronically signed by: Melisa Cartagena DO 09/05/2024 10:56 AM EDT Dictated By: Melisa Cartagena DO Signed By: <Electronically signed by Melisa Cartagena DO in OV> 09/05/24 1056 DD/ 0945 TD/TT: 09/05/24 1007 Zone Manager: Procedure Note Donotuseinterpreter, Image - 09/05/2024 [facility] [address] [place] [address] [place] [address] Ultrasound Report Signed Patient: Aaliyah Luu EMR#: [id number] 213 : 1965Acct:[id number] Age/Sex: 59 / FADM Date: 09/05/24 Loc: HO.MAMMO Attending Dr: Gerry Ventura CNM Ordering Physician: GERRY VENTURA CNM Date of Service: 09/05/24 Procedure(s): US breast BI limited mamm only Accession Number(s): [id number] cc: Johnny Banuelos MD; GERRY VENTURA CNM EXAMINATION: MM DIAGNOSTIC DIGITAL BREAST TOMOSYNTHESIS, BILATERAL Bilateral Limited ultrasound. CLINICAL INFORMATION: Bilateral nipple discharge patient does not recall what color and bilateral breast pain. COMPARISON: Mammography: Comparison is made with relevant prior exams. TECHNIQUE: Digital breast mammography with tomosynthesis is performed in both the craniocaudal and mediolateral oblique views along with computer-aided detection (CAD). FINDINGS: There are scattered areas of fibroglandular density (ACR BI-RADS breast composition Category b). There are no significant masses, abnormal calcifications, or other abnormalities. Targeted color Doppler ultrasound scanning in the left lower inner quadrant upper inner quadrant and retroareolar region demonstrates normal fibronodular breast tissue. There is no sonographic abnormality. Targeted color Doppler ultrasound scanning in the right lower inner quadrant retroareolar region and upper inner quadrant demonstrates normal fibronodular breast tissue. There is no sonographic abnormality. Results are provided to the patient at time of visit by the technologist. US/US breast BI limited mamm only IMPRESSION: No mammographic or sonographic abnormality to account for the patient's bilateral areas of pain and bilateral nipple discharge. If the patient has bloody nipple discharge breast MRI should be considered for further evaluation. Recommend clinical evaluation and follow-up. ASSESSMENT: BI-RADS BI-RADS 1 - Negative RECOMMENDATION: 1 year F/U This patient's information was entered into a reminder system with a target due date for their next mammogram. Electronically signed by: Melisa Cartagena DO 09/05/2024 10:56 AM EDT Dictated By: Melisa Cartagena DO Signed By: <Electronically signed by Melisa Cartagena DO in OV> 09/05/24 1056 DD/ 0945 TD/TT: 09/05/24 1007 Zone Manager: Gerry Ventura CNM IMG US PROCEDURES Final R esult * (ABNORMAL) POCT HGB A1C (08/15/2024 11:25 AM EDT) Hemoglobin A1C 7.3(A) 4.0 - 6.0 % QC Media Lot # [id number] Lot# Expiration Date 355 Blood 08/15/2024 11:2 5 AM EDT Johnny Ramírez MD POINT OF CARE TEST EN TER/EDIT ORDERABLES Final Result * HPV mRNA E6/E7 w/Reflex to HPV Genotypes 16, 18/45 (08/23/2023 9:15 AM EDT) HPV nRNA E6/E7 Not Detected Not Detected [facility] Comment:Methodology: Transcr iption-Mediated AmplificationThis assay detects E6/E7 viral messenger RNA (mRNA) from 14high-risk HPV types (16,18,31,33,35,39,45,51,52,56,58,59,66,68).Cervical sources are required for HPV testing.If a vaginal source from a patient who has had atotal hysterectomy with removal of cervix wassubmitted, please contact the testing laboratoryfor alternative testing options.For additional information, please refer [email or web address]/faq/CZN531d3(This link if provided for information/educational purposes only.)THIS TEST WAS PERFORMED AT:[facility] [place] [id number] ARCEO MD HPV mRNA E6/E7 TNP [facility] HPV 16 RNA HIP [facility] HPV 18/45 RNA [facility] 08/23/2023 9:15 AM EDT 08/24/2023 7:00 AM EDT Gerry Ventura CNM LAB CYTOLOGY ORDERABLES F inal Result [facility] [address] [place] [phone] * Pap Smear (08/23/2023 9:15 AM EDT) Swab Cervix uteri structure / Unknown 08/23/2023 9:15 AM EDT 08/24/2023 7:00 AM EDT Narrative [facility] - 09/10/2023 9:24 AM EDT ----- ------- Name: Aaliyah Luu Age/Sex: 58/F : 1965 Unit#: [id number] Attend Dr: GERRY VENTURA CNM Re08/23/23 Status: DEP REF Location: HO.HHCLNP Disch: ----- ------- SPEC : [id number] RECD: 08/24/23 STATUS: ELIJAH PEACOCK NUM: [id number] BRAD: 08/23/[address]: GERRY VENTURA CNM ENTERED: 08/24/23 SP TYPE: Pap Smr OTHR DR: ORDERED: Pap Smear Interpretation Satisfactory for evaluation. Atrophic. Negative for intraepithelial lesion or malignancy. HPV mRNA E6/E7: NOT DETECTED This assay detects E6/E7 viral messenger RNA (mRNA) from 14 high-risk HPV types (16, 18, 31, 33, 35, 39, 45, 51, 52, 56, 58, 59, 66, 68) HPV testing performed by [employer], [place], [place]. See reference laboratory portion of the EMR for entire report. Clinical Information LMP: Postmenopausal Previous PAP test: 04/2018, WNL, HPV neg Other surgery: Other history: Material Received ThinPrep-Vaginal/Cervical ----- ------- Signed (signature on file) KINGS Ramirez (ASCP) 09/10/23 0924 ----- ------- END OF REPORT us Gerry PERALES LAB CYTOLOGY ORDERABLES F inal Result [facility] [address] [place] [address] [phone] * Lipid Panel, Standard (07/27/2022 9:28 AM EST) Triglycerides 97 mg/dL [facility] Comment:Desirable Triglyceri de: less than 150 mg/dLBorderline High Triglyceride 150-199 mg/dLHigh Triglyceride: 200-499 mg/dLVery High Triglyceride: greater than or equal to 5OO mg/dL Cholesterol 228 mg/dL [facility] Comment:Desirable Cholestero l: less than 200 mg/dLBorderline High Cholesterol: 200-239 mg/dLHigh Cholesterol: greater than 239 mg/dL LDL Cholesterol Calculated 147 mg/dl [facility] Comment:Desirable LDL: less than 100 mg/dLNear Optimal/Above Optimal LDL: 110- 129 mg/dLBorderline High LDL: 130-159 mg/dLHigh LDL: 160-189 mg/dLVery High LDL: greater than or equal to 190 mg/dL HDL Cholesterol 62 mg/dL [facility] Comment:Desirable HDL: great er than 40 mg/dL Note: This HDL assay may give artificially low results in patients with liver disease. 07/27/2022 9:28 AM EST 07/27/2022 9:29 AM EST [facility] External Provider LAB BLO OD ORDERABLES Final Result Performing Organization Address City/[facility]/ZIP Co de Phone Number [facility] [address] [place] [phone] * Albumin, Random Urine W/Creatinine (07/17/2022 12:38 PM EST) Creatinine, Urine 95.47 mg/dL [facility] Microalbumin Urine 18.0 mg/L [facility] Microalbum Creatinine Ratio Ur 18.8 ug/mg cr [facility] Comment:Albumin/Creatinine R atio Reference Ranges: Normal: < 30 ug/mg creatinine Microalbuminuria: 30 - 300 ug/mg creatinineClinical Albuminuria: > 300 ug/mg creatinine 07/17/2022 12:3 8 PM EST 07/17/2022 1:20 PM EST [facility] External Provider LAB URI NE ORDERABLES Final Result Performing Organization Address [facility]/ZIP Co de Phone Number [facility] [address] [place] [phone] from Last 3 Months or Most Recently Relevant to Health Maintenance Insurance [facility] C3 Care Teams Escort Car Driver Relationship Specialty Start Date End Date Johnny Galvan MD [address] [place] [phone] PCP - General Internal Medicine 04/26/18
== END 2024-12-25 10:26 | disposition home or self-care (01) ==
LOC: HO.US 10:25
PROVIDERS: PCP Internal Medicine; Visit Provider Student in an Organized Health Care Education/Training Program
DX: E04.2 Nontoxic multinodular goiter (principal)
CPT/HCPCS: 76536

== ENCOUNTER → 2024-12-25 10:27 | Outpatient (BNV) | payer MEDICAID, SELFPAY | PROVIDERS: PCP Internal Medicine; Visit Provider Radiology Diagnostic Radiology | DX: E04.2 Nontoxic multinodular goiter (principal) | CPT/HCPCS: 76536 ==

== ENCOUNTER 2025-01-05 11:00 | Outpatient (AMB) | payer MEDICAID, SELFPAY ==
[2025-01-05 11:01] VITALS: BP 130/72; PULSE 73; O2SAT 97; BMI 29.3
--- NOTE | 2025-01-05 11:01 | MHC.OFFVIS ---
Vital Signs 01/05/25 11:01 Height 5 ft 3 in Weight 165 lb 5.547 oz BMI 29.3 BP 130/72 Blood Pressure Location Lt brachial Position Sitting Pulse 73 Pulse Source Pulse Oximeter Pulse Oximetry (%) 97 Oxygen Delivery Method Room Air Intake Visit Reasons: Enlarged thyroid gland Intake Note: Patient present today for Enlarged thyroid gland office visit. [place] Operator Required: No Accompanied by: Self / Same As Patient Allergies No Known Allergies Allergy (Verified 01/05/25 11:05) HPI Comments Details: 58 years old female coming in today for follow up of thyroid nodules. And right adrenal adenoma Thyroid nodules Found to have multiple thyroid nodules on US in december 2023 Multiple bilateral nodules noted, largest 1 on the right side measuring 1 cm. Otherwise subcentimeter nodules. Patient currently denies heat or cold intolerance, diarrhea or constipation, hair loss, palpitation, anxiety, weight changes, mood changes, low energy, changes in appearance of eyes or vision changes, tremors, increased diaphoresis or dry skin. ?She does have post menopausal hot flashes. Patient endorses difficulty swallowing for the last 2 years both with liquids and solids and sometimes saliva getting stuck, has barium swallow study in December 2022 which was normal , waiting for ENT evaluation. Denies pain on swallowing or voice changes or difficulty breathing. Patient denies any history of childhood neck radiation. Denies having ever used lithium, amiodarone or biotin supplements. Patient denies any family history of thyroid cancer. Mother has some thyroid disease. she is not sure what but not cancer. TSH August 2023 normal 0.53 Interval history Ultrasound thyroid repeated 12/25/2024, I reviewed the images myself which again shows stable size of all the subcentimeter nodules. The right lower pole nodule is quite hypoechoic, could possibly be upgraded to a TR 5 nodule, however this remains subcentimeter in size and actually measures smaller at 0.6 cm. Other nodules remained stable. Right adrenal adenoma Patient also has a history of right adrenal gland nodule measuring 2.1 cm, five Hounsfield units. Diagnosed in February 12. Greater than 50% washout consistent with lipid rich adenoma. Initial workup from 07/2022 showed-1 mg dex suppression test with dexamethasone level of 232, cortisol level of 1 mcg/dL. DHEA-S 27. Normal metanephrine and normetanephrine levels. Patient does not have history of hypertension or hypokalemia, hence was not screen for primary hyperaldosteronism. Interval history Repeat CT adrenal February 2024 showed stable size of the right adrenal gland lipid rich adenoma at 2.2 cm. Diabetes remains well-controlled. Patient denies any history of weight gain, easy bruising, proximal muscle weakness, no abdominal striae. She denies any history of fractures, no history of osteoporosis. Has lost 10 lbs since 2023 Physical exam General: sitting comfortably in bed in no acute distress HEENT: normocephalic/atraumatic, EOM intact, moist oral mucosa Neck: supple, symmetrical, no thyromegaly , no dorsocervical or supraclavicular fat pads Cardiac: normal heart sounds Pulm: normal breath sounds B/L, no added breath sounds Abd: not distended, no tenderness Extremities: no edema, no signs of myxedema Neuro: AAO x3, Speech: normal, no facial droop, moving all 4 extremities Skin: no rash Laboratory Tests 07/17/22 07/23/22 09/14/23 12:41 08:05 10:16 TSH 0.53 DHEA Sulfate 27 Random Cortisol 13.3 1.0 Plasma Free Metaneph 31 Plasma Free Normeta 111 Plas Total Metaneph 142 Dexamethasone 232 EXAMINATION: US THYROID 12/25/24 HISTORY: E04.2 - Nontoxic multinodular goiter TECHNIQUE: Real-time grayscale ultrasound imaging was performed and images were reviewed. COMPARISON: Comparison is made with the prior examination dated 12/30/2023. FINDINGS: SIZE: The right thyroid lobe measures 6.1 x 2.1 x 2.5 cm. The left thyroid lobe measures 5.6 x 2.0 x 2.4 cm. The isthmus measures 5 mm. FLOW: Flow to the gland is normal. ECHOGENICITY: The echotexture of the gland is heterogeneous. NODULES: Again seen is a 4 x 3 x 4 mm spongiform nodule at the upper pole of the right thyroid lobe, a 6 x 5 x 5 mm spongiform nodule at the upper pole of the left thyroid lobe, and a 5 x 5 x 6 mm cyst at the lower pole of the left thyroid lobe. In addition, there are solid nodules noted as described below: Nodule #: 1 Location: Midportion of the right thyroid lobe measuring 10 x 7 x 10 mm (previously 10 x 6 x 7 mm). Shape: Wider than tall (0 points) Margins: Ill-defined (0 points) Echotexture: Isoechoic (1 point) Composition: Solid (2 points) Calcifications: None (0 points) Total points: 3 TIRADS: TR3: Mildly suspicious. Nodule #: 2 Location: Lower pole of the right thyroid lobe measuring 6 x 5 x 7 mm (previously 9 x 6 x 8 mm). Shape: Wider than tall (0 points) Margins: Smooth (0 points) Echotexture: Hypoechoic (2 points) Composition: Solid (2 points) Calcifications: None (0 points) Total points: 4 TIRADS: TR4: Moderately suspicious. US/US thyroid IMPRESSION: Stable subcentimeter bilateral thyroid nodules as described. CT ADRENAL WITHOUT AND WITH IV CONTRAST. 03/16 CLINICAL INFORMATION: Adrenal mass. COMPARISON: CT abdomen dated March 17, 2022. TECHNIQUE: Contiguous axial thin section helical images of the abdomen were performed before and after the administration of 85 cc Omnipaque 350 strength of contrast without reported immediate complications. The data set was reformatted in the coronal and sagittal planes and reviewed on an independent workstation. This CT examination was performed using dose optimization techniques as appropriate, variously including the following: Automated exposure control Adjustment of MA and/or KV according to patient size Use of interactive reconstruction technique. DLP: 339 mGy per centimeter. FINDINGS: Submitted for interpretation on April 26, 2024. Right adrenal gland: There is a well-defined 2.2 cm ovoid shaped low density nodule which measures 5 Hounsfield units delayed non-IV contrast component. Left adrenal gland: No nodular lesions. Liver measures 16 cm. There is a 3 mm low density in the right hepatic lobe too small to be fully characterized. Portal veins, hepatic veins and intrahepatic portion of the IVC are patent. There is a focal intraluminal calcification in the gallbladder. No pericholecystic fluid collection or gallbladder wall thickening. No intrahepatic or extrahepatic biliary ductal dilatation. No focal pancreatic mass or peripancreatic fluid collection. No main pancreatic ductal dilatation. Spleen measures 10 cm. No focal mass. The kidneys demonstrate normal enhancement pattern without renal mass or hydronephrosis. No nephrolithiasis. No intestinal obstruction pattern. Abundant stool. No ascites. No pneumoperitoneum. No pneumatosis intestinalis. I do not see the appendix. No aneurysm or dissection, abdominal aorta. Nonspecific mildly prominent mesenteric lymph nodes. Diastases abdominal rectus muscles in the periumbilical region. Multilevel thoracolumbar spondylosis. No acute fracture or gross listhesis. CT/CT adrenal wo/w IV con IMPRESSION: 2.2 cm lipid rich adenoma, right adrenal gland. Cholelithiasis. Electronically signed by: Skyler Barlow MD 04/26/2024 12:40 PM [facility] EXAMINATION: US THYROID 01/14 CLINICAL INFORMATION: Enlarged thyroid. COMPARISON: None available. TECHNIQUE: Linear transducer grayscale and color Doppler examination with attention to the region of the thyroid. FINDINGS: SIZE: Measurements of the thyroid lobes and nodules are given in sagittal, anteroposterior and transverse dimensions respectively. Right Thyroid Lobe: 5.8 x 2.1 x 2.6 cm, volume 16.4 mL. Parenchyma: The gland echotexture is heterogeneous. Thyroid vascularity is normal. Left Thyroid Lobe: 5.9 x 2.1 x 2.3 cm, volume 14.6 mL. Parenchyma: The gland echotexture is heterogeneous. Thyroid vascularity is normal. Isthmus: 0.5 cm in maximum AP dimension. Estimated total number of nodules greater than or equal to 1 cm: 1. Electroplater Helper nodules are described as follows: 1. Location: Right superior. Size: 0.4 x 0.3 x 0.5 cm, volume 0.03 mL. Nodule characteristics: Composition: Spongiform (0). ACR TI-RADS total points: 0 ACR TI-RADS category: 1 2. Location: Right mid. Size: 1.0 x 0.6 x 0.7 cm, volume 0.24 mL. Nodule characteristics: Composition: Solid (2). Echogenicity: Hypoechoic (2). Shape: Not taller than wide (0). Margins: Ill-defined (0). Echogenic Foci: None (0). ACR TI-RADS total points: 4 ACR TI-RADS category: 4 3. Location: Right inferior. Size: 0.9 x 0.6 x 0.8 cm, volume 0.23 mL. Nodule characteristics: Composition: Solid (2). Echogenicity: Hypoechoic (2). Shape: Not taller than wide (0). Margins: Smooth (0). Echogenic Foci: None (0). ACR TI-RADS total points: 4 ACR TI-RADS category: 4 4. Location: Left superior. Size: 0.5 x 0.3 x 0.5 cm, volume 0.04 mL. Nodule characteristics: Composition: Spongiform (0). ACR TI-RADS total points: 0 ACR TI-RADS category: 1 5. Location: Left mid. Size: 0.6 x 0.5 x 0.6 cm, volume 0.08 mL. Nodule characteristics: Composition: Cystic(0). ACR TI-RADS total points: 0 ACR TI-RADS category: 1 NODES: No lymphadenopathy is seen in the tissue surrounding the thyroid gland. CT abd Feb 2022 OMPARISON: Previous CT of the abdomen and pelvis January 2022 TECHNIQUE: Contiguous axial thin section helical images of the abdomen were performed before and after the administration of oral contrast and 85 mL of Omnipaque 350 intravenous contrast. The data set was reformatted in the coronal and sagittal planes and reviewed on an independent workstation. This CT examination was performed using dose optimization techniques as appropriate, variously including the following: *Automated exposure control *Adjustment of mA and/or kV according to patient size (this includes techniques or standardized protocols for targeted exams where dose is matched to indication/reason for exam; i.e. extremities or head) *Use of iterative reconstruction technique DLP: 431 mGy-cm FINDINGS: LUNG BASES: There is increased attenuation in the peripheral or subpleural left lower lobe adjacent to bony osteophyte probably representing atelectasis. The visualized lung bases are otherwise clear. LIVER, GALLBLADDER, AND BILIARY TREE: There is a small 5 mm low-attenuation lesion in the medial segment of the left lobe of the liver probably representing a cyst. There are other smaller liver lesions difficult to characterize but may represent cysts as well. The liver is otherwise normal. There is a gallstone in the gallbladder. There is no biliary duct dilatation. PANCREAS: Normal SPLEEN: Normal ADRENAL GLANDS AND KIDNEYS: There is a 2.1 x 1.6 cm low-attenuation right adrenal lesion. Hounsfield units without contrast measure 5. Hounsfield units immediately post IV contrast measure 80. Delayed Hounsfield units following IV contrast measure 32. This is suggestive of a benign lipid rich adenoma. BOWEL LOOPS: Normal LYMPH NODES: Normal. VASCULAR: Unremarkable. BONES: Mild degenerative changes of the spine. CT/CT abdomen wo/w IV con IMPRESSION: 2.1 x 1.6 cm low-attenuation right adrenal lesion suggestive of a benign lipid rich adenoma. Gallstone. Probable liver cysts. Fleischner guidelines were followed. [facility], [facility] Medical History (Updated 01/05/25 @ 11:10 by Brenda Elizondo MD) Multinodular goiter Diabetes Surgical History (System 08/09/24 @ 11:21 by Aisha Farley) Hx of tubal ligation Family History Maternal Grandmother Stomach cancer Maternal Uncle Cancer of unknown origin Maternal Aunt Skin cancer Social History (System 08/09/24 @ 11:21 by Aisha Farley) Household Members: Spouse and Children Household Members Other:: Daughter, Alcohol intake: never Patient Tobacco Use Status: Never used Tobacco Assessment & Plan Assessment & Plan (1) Multinodular goiter: Code(s): E04.2 - Nontoxic multinodular goiter Category: Medical Plan: 58-year-old female coming in today for follow up of thyroid nodules. No family history of thyroid cancer, no personal history of head or neck radiation. Noted to have bilateral thyroid nodules. The largest 1 on the right side is measuring 1 cm. All others are subcentimeter in size. Ultrasound thyroid repeated 12/25/2024, I reviewed the images myself which again shows stable size of all the subcentimeter nodules. The right lower pole nodule is quite hypoechoic, could possibly be upgraded to a TR 5 nodule, however this remains subcentimeter in size and actually measures smaller at 0.6 cm. Other nodules remained stable. She has no symptoms of compression or hypo or hyperthyroidism. TSH was normal from 09/11/2023 at 0.53. Plan: -repeat thyroid ultrasound in December of 2025 prior to follow up in 1 year -repeat free T4 and TSH prior to next visit in 1 year (2) Adrenal benign tumor: Code(s): D35.00 - Benign neoplasm of unspecified adrenal gland Category: Medical Qualifiers: Laterality: right Qualified Code(s): D35.01 - Benign neoplasm of right adrenal gland Plan: Patient has history of 2.1 cm lipid rich right adrenal adenoma. Five Hounsfield units. Diagnosed in January of 2022. We did not screen her for primary hyperaldosteronism as she is not hypertensive and does not have history of hypokalemia. 1 mg dexamethasone suppression test from July of 2022 was negative. Cortisol level was 1, dexamethasone level was appropriate. She also had normal metanephrine and normetanephrine levels. While some guidelines for example AACE recommends repeating a 1 mg dexamethasone suppression test yearly for 5 years, at this time patient does not have any features of [place]'s, and there is some literature which advises to use clinical judgment for this. At this time I would hold off on repeating 1 mg dexamethasone suppression test. If patient has any features of hypercortisolism in the future, this test can be repeated suggest weight gain, resting of diabetes, development of hypertension, osteoporosis/fracture, depression. Repeat CT scan February 2024 showed stable size of the nodule. nodule remains stable in size, there is no need for repeat imaging. Plan: -monitor clinically annually for 5 years from 2021. Plan See above Orders: Orders US thyroid 12/03/25 E04.2 - Nontoxic multinodular goiter TSH reflex Free T4 1 Year E04.2 - Nontoxic multinodular goiter Patient Instructions: Do ultrasound thyroid in November 2025, someone will call you to schedule this, please make sure this is done a few weeks prior to your next follow up with me in December 2025 Do thyroid blood work a few days prior to your next visit in 1 year , orders have been placed Coding Level of Care Code Est Pt Level 3 (93684) Diagnoses Multinodular goiter E04.2 Benign neoplasm of cortex of right adrenal gland D35.01 Laterality: right
--- OUTSIDE RECORDS SUMMARY | 2025-01-05 11:09 | XMS_ITS | Clinical Summary ---
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 Referred to [facility] for repeat Colonoscopy: 09/17/2016 Assessment & Plan [...] followed by Dr Reyes Bariatric surgeon at [facility] Adenoma of right adrenal gland 07/01/2022 Assessment [...] 7.2 She was under the care of cyber crime investigator Dr Cameron who discontinued her Lantus and referred her back to Commercial Leasing Manager and to us for DM care Plan: [...] 7.2 She was under the care of cyber crime investigator Dr Cameron who discontinued her Lantus and referred her back to Commercial Leasing Manager and to us for DM care Plan: [...] 132 She was under the care of cyber crime investigator Dr Cameron who discontinued her Lantus and referred her back to Commercial Leasing Manager and to us for DM care Plan: [...] average She was under the care of cyber crime investigator Dr Cameron who recently discontinue her Lantus and referred her back to Commercial Leasing Manager and to us for DM care Plan: [...] 101 She was under the care of cyber crime investigator Dr Cameron who recently discontinue her Lantus and referred her back to Commercial Leasing Manager and to us for DM care Plan: [...] She is now under the care of cyber crime investigator Dr Cameron who recently discontinue her Lantus and referred her back to Commercial Leasing Manager Plan: Continue as per Endocrinology, Has an [...] did very well after being evaluated by Commercial Leasing Manager and Weatherization Director, she was able to come off Lantus and off Humalog She was doing well only on Metformin 1000 mg po BID, but unfortunately recently her Blood sugars started to go up once a gain and she was restarted back on Lantus at 10 units subcutaneous at bedtime by our [facility] provider Hgb A1c 06/15/2022 was: 11.4 [...] Encounters Date Type Department Care Team Description 12/25/2024 Orders Only [facility] External Provider, [facility] 10/10/2024 Orders Only [facility] MEDICINE [address] [place] [address] Johnny Galvan MD from Last 3 Months [...] 2024 08/09/2021, 10/15/2020, 09/17/2020 Diabetes: Hemoglobin A1C 11/15/2024 025, 04/11/2024, 12/09/2023, [...] Procedure Name Priority Date/Time Associated Diagnosis Comments US THYROID Routine 12/25/2024 10:[address] ABDOMEN PELVIS W CONTRAST Routine 10/12/2024 11:32 AM EDT LLQ abdominal pain POCT CREATININE GFR Routine 10/10/2024 9 :05 AM EDT BI US BREAST LIMITED BILATERAL Routine 09/05/2024 9:45 AM EDT POCT GLYCATED HEMOGLOBIN, TOTAL Routine 08/15/2024 11:25 AM EDT Type 2 diabetes mellitus without complication, with long-term current use of insulin ([facility]) HPV MRNA E6/E7 REFLEX TO HPV 16, 18/45 Routine 08/23/2023 9:15 AM EDT PAP SMEAR Routine 08/23/2023 9:15 AM EDT Cervical cancer screening LIPID PANEL, STANDARD Routine 07/27/2022 9:28 AM EST ALBUMIN, RANDOM URINE W/CREATININE Routine 07/17/2022 12:38 PM EST from Last 3 Months or Most Recently Relevant to Health Maintenance Results * US Thyroid (12/25/2024 10:37 AM EDT) Anatomical Region Laterality Modality Head, Neck Ultrasound 12/25/2024 10:3 7 AM EDT Narrative 12/25/2024 11:11 AM EDT [place] [address] Ultrasound Report Signed Patient: Aaliyah Luu MR#: [id number] 213 : 1965 Acct:[id number] Age/Sex: 59 / F ADM Date: 12/25/24 Loc: HO.US Attending Dr: Brenda Elizondo MD Ordering Physician: Brenda Elizondo MD Date of Service: 12/25/24 Procedure(s): US thyroid Accession Number(s): [id number] cc: Johnny Banuelos MD; Brenda Elizondo MD EXAMINATION: US THYROID HISTORY: E04.2 - Nontoxic multinodular goiter TECHNIQUE: Real-time grayscale ultrasound imaging was performed and images were reviewed. COMPARISON: Comparison is made with the prior examination dated 12/30/2023. FINDINGS: SIZE: The right thyroid lobe measures 6.1 x 2.1 x 2.5 cm. The left thyroid lobe measures 5.6 x 2.0 x 2.4 cm. The isthmus measures 5 mm. FLOW: Flow to the gland is normal. ECHOGENICITY: The echotexture of the gland is heterogeneous. NODULES: Again seen is a 4 x 3 x 4 mm spongiform nodule at the upper pole of the right thyroid lobe, a 6 x 5 x 5 mm spongiform nodule at the upper pole of the left thyroid lobe, and a 5 x 5 x 6 mm cyst at the lower pole of the left thyroid lobe. In addition, there are solid nodules noted as described below: Nodule #: 1 Location: Midportion of the right thyroid lobe measuring 10 x 7 x 10 mm (previously 10 x 6 x 7 mm). Shape: Wider than tall (0 points) Margins: Ill-defined (0 points) Echotexture: Isoechoic (1 point) Composition: Solid (2 points) Calcifications: None (0 points) Total points: 3 TIRADS: TR3: Mildly suspicious. Nodule #: 2 Location: Lower pole of the right thyroid lobe measuring 6 x 5 x 7 mm (previously 9 x 6 x 8 mm). Shape: Wider than tall (0 points) Margins: Smooth (0 points) Echotexture: Hypoechoic (2 points) Composition: Solid (2 points) Calcifications: None (0 points) Total points: 4 TIRADS: TR4: Moderately suspicious. US/US thyroid IMPRESSION: Stable subcentimeter bilateral thyroid nodules as described. ACR TI-RADS Guidelines TR1 (0 points): Benign. No follow-up or biopsy required TR2 (2 points): Not Suspicious. No biopsy or follow up indicated TR3 (3 points): Mildly Suspicious. FNA if >= 2.5 cm, Follow if >= 1.5 cm TR4 (4-6 points): Moderately Suspicious. FNA if >= 1.5 cm, Follow if >= 1.0 cm TR5 (>=7 points): Highly Suspicious. FNA if >= 1.0 cm, Follow if >= 0.5 cm Electronically signed by: José Black MD 12/25/2024 11:08 AM EDT RP Dictated By: José Black MD Signed By: <Electronically signed by José Black MD in OV> 12/25/24 1108 DD/ 1037 TD/TT: 12/25/24 1046 Salt Refiner: Procedure Note Donotuseinterpreter, Image - 12/25/[address] [address] Ultrasound Report Signed Patient: Aaliyah Luu EMR#: [id number] 213 : 1965Acct:[id number] Age/Sex: 59 / FADM Date: 12/25/24 Loc: HO.US Attending Dr: Brenda Elizondo MD Ordering Physician: Brenda Elizondo MD Date of Service: 12/25/24 Procedure(s): US thyroid Accession Number(s): [id number] cc: Johnny Banuelos MD; Bernda Elizondo MD EXAMINATION: US THYROID HISTORY: E04.2 - Nontoxic multinodular goiter TECHNIQUE: Real-time grayscale ultrasound imaging was performed and images were reviewed. COMPARISON: Comparison is made with the prior examination dated 12/30/2023. FINDINGS: SIZE: The right thyroid lobe measures 6.1 x 2.1 x 2.5 cm. The left thyroid lobe measures 5.6 x 2.0 x 2.4 cm. The isthmus measures 5 mm. FLOW: Flow to the gland is normal. ECHOGENICITY: The echotexture of the gland is heterogeneous. NODULES: Again seen is a 4 x 3 x 4 mm spongiform nodule at the upper pole of the right thyroid lobe, a 6 x 5 x 5 mm spongiform nodule at the upper pole of the left thyroid lobe, and a 5 x 5 x 6 mm cyst at the lower pole of the left thyroid lobe. In addition, there are solid nodules noted as described below: Nodule #: 1 Location: Midportion of the right thyroid lobe measuring 10 x 7 x 10 mm (previously 10 x 6 x 7 mm). Shape: Wider than tall (0 points) Margins: Ill-defined (0 points) Echotexture: Isoechoic (1 point) Composition: Solid (2 points) Calcifications: None (0 points) Total points: 3 TIRADS: TR3: Mildly suspicious. Nodule #: 2 Location: Lower pole of the right thyroid lobe measuring 6 x 5 x 7 mm (previously 9 x 6 x 8 mm). Shape: Wider than tall (0 points) Margins: Smooth (0 points) Echotexture: Hypoechoic (2 points) Composition: Solid (2 points) Calcifications: None (0 points) Total points: 4 TIRADS: TR4: Moderately suspicious. US/US thyroid IMPRESSION: Stable subcentimeter bilateral thyroid nodules as described. ACR TI-RADS Guidelines TR1 (0 points): Benign. No follow-up or biopsy required TR2 (2 points): Not Suspicious. No biopsy or follow up indicated TR3 (3 points): Mildly Suspicious. FNA if >= 2.5 cm, Follow if >= 1.5 cm TR4 (4-6 points): Moderately Suspicious. FNA if >= 1.5 cm, Follow if >= 1.0 cm TR5 (>=7 points): Highly Suspicious. FNA if >= 1.0 cm, Follow if >= 0.5 cm Electronically signed by: José Black MD 12/25/2024 11:08 AM EDT Dictated By: José Black MD Signed By: <Electronically signed by José Black MD in OV> 12/25/24 1108 DD/ 1037 TD/TT: 12/25/24 1046 Salt Refiner: us [facility] External Provider IMG US PROCEDURES Final Result * CT Abdomen Pelvis w/ Contrast (10/12/2024 11:32 AM EDT) Anatomical Region Laterality Modality Body, Pelvis, Abdomen Computed T omography 10/12/2024 11:3 2 AM EDT Narrative 10/12/2024 11:34 AM EDT [place] [address] [address] Scan Report Signed Patient: Aaliyah Luu MR#: [id number] 213 : 1965 Acct:[id number] Age/Sex: 59 / F ADM Date: 10/10/24 Loc: HO.CT Attending Dr: Johnny Banuelos MD Ordering Physician: Johnny Banuelos MD Date of Service: 10/10/24 Procedure(s): CT abdomen pelvis w IV con Accession Number(s): [id number] cc: Johnny Banuelos MD Report Number: [id number]: Total DLP = 458.00 mGy-cm CLINICAL HISTORY: [...] 10/12/24 1133 DD/ 1132 TD/TT: 10/12/24 1132 Salt Refiner: Procedure Note Donotuseinterpreter, Image - 10/12/[address] [address] [address] Scan Report Signed Patient: Aaliyah Luu EMR#: [id number] 213 : 1965Acct:[id number] Age/Sex: 59 / FADM Date: 10/10/24 Loc: HO.CT Attending Dr: Johnny Banuelos MD Ordering Physician: Johnny Banuelos MD Date of Service: 10/10/24 Procedure(s): CT abdomen pelvis w IV con Accession Number(s): [id number] cc: Johnny Banuelos MD Report Number: [id number]: Total DLP = 458.00 mGy-cm CLINICAL HISTORY: [...] 10/12/24 1133 DD/ 1132 TD/TT: 10/12/24 1132 Salt Refiner: us Johnny Ramírez MD IMG CT PROCEDURES Brent cassandra Result - Final * POCT Creatinine GFR (10/10/2024 9:05 AM EDT) POCT Creatinine 0.9 0.5 - 1.4 mg/dL [facility] GFR POC >60 [facility] Comment:Chronic Kidney Disea se: Estimated GFR < 60 mL/min/1.91j3Kxskjq Kidney Disease: Estimated GFR < 15 mL/min/1.73m2 10/10/2024 9:05 AM EDT 10/10/2024 12:48 PM EDT Narrative [facility] - 10/10/2024 12:52 PM EDT [id number] us Johnny Ramírez MD LAB POINT OF CARE TEST DOCKED DEVICE ORDERABLES Final Result [facility] [address] [place] [address] [phone] * BI US Breast Limited Bilateral (09/05/2024 9:45 AM EDT) Anatomical Region Laterality Modality Breast Bilateral Ultrasound 09/05/2024 9:45 AM EDT Narrative 09/05/2024 10:58 AM EDT [facility] [address] [place] [address] Ultrasound Report Signed Patient: Aaliyah Luu MR#: [id number] 213 : 1965 Acct:[id number] Age/Sex: 59 / F ADM Date: 09/05/24 Loc: HO.MAMMO Attending Dr: Gerry Ventura CNM Ordering Physician: GERRY VENTURA CNM Date of Service: 09/05/24 Procedure(s): US breast BI limited mamm only Accession Number(s): [id number] cc: Johnny Banuelos MD; GERRY VENTURA CNM [...] Melisa Cartagena DO 09/05/2024 10:56 AM EDT RP Dictated By: Melisa Cartagena DO Signed By: <Electronically signed by Melisa Cartagena DO in OV> 09/05/24 1056 DD/ 0945 TD/TT: 09/05/24 1007 Salt Refiner: Procedure Note Donotuseinterpreter, Image - 09/05/2024 [place] [facility] [address] [place] [address] Ultrasound Report Signed Patient: Aaliyah Luu EMR#: [id number] 213 : 1965Acct:[id number] Age/Sex: 59 / FADM Date: 09/05/24 Loc: HO.MAMMO Attending Dr: Gerry Ventura CNM Ordering Physician: GERRY VENTURA CNM Date of Service: 09/05/24 Procedure(s): US breast BI limited mamm only Accession Number(s): [id number] cc: Johnny Banuelos MD; GERRY VENTURA CNM [...] 09/05/24 1056 DD/ 0945 TD/TT: 09/05/24 1007 Salt Refiner: Gerry Ventura CNM IMG US PROCEDURES Final [...] HPV nRNA E6/E7 Not Detected Not Detected [facility] Comment:Methodology: Transcr iption-Mediated AmplificationThis assay detects E6/E7 viral messenger RNA (mRNA) from 14high-risk HPV types (16,18,31,33,35,39,45,51,52,56,58,59,66,68).Cervical sources are required for HPV testing.If a vaginal source from a patient who has had atotal hysterectomy with removal of cervix wassubmitted, please contact the testing laboratoryfor alternative testing options.For additional information, please refer [email or web address]/faq/VKD298e4(This link if provided for information/educational purposes only.)THIS TEST WAS PERFORMED AT:[facility] [place] [id number] ARCEO MD HPV mRNA E6/E7 TNP [facility] HPV 16 RNA TNP [facility] HPV 18/[address] [facility] 08/23/2023 9:15 AM EDT 08/24/2023 7:00 AM EDT us Gerry Ventura [facility] CYTOLOGY ORDERABLES F inal Result [facility] [address] [place] [address] [phone] * Pap Smear (08/23/2023 9:15 AM EDT) Swab Cervix uteri structure / Unknown 08/23/2023 9:15 AM EDT 08/24/2023 7:00 AM EDT Narrative [facility] - 09/10/2023 9:24 AM EDT ----- ------- Name: Luu,Aaliyah E Age/Sex: 58/F : 1965 Unit#: [id number] Attend Dr: GERRY VENTURA CNM Re08/23/23 Status: DEP [facility] Disch: ----- ------- SPEC : [id number] RECD: 08/24/23 STATUS: ELIJAH PEACOCK NUM: [id number] RBAD: 08/23/23-9[address] [facility] DR: GERRY VENTURA CNM ENTERED: 08/24/23 SP TYPE: Pap Smr OTHR DR: ORDERED: Pap Smear Interpretation Satisfactory for evaluation. Atrophic. Negative for intraepithelial lesion or malignancy. HPV mRNA E6/E7: NOT DETECTED This assay detects E6/E7 viral messenger RNA (mRNA) from 14 high-risk HPV types (16, 18, 31, 33, 35, 39, 45, 51, 52, 56, 58, 59, 66, 68) HPV testing performed by [facility], [place], [place]. See reference laboratory portion of the EMR for entire report. Clinical Information LMP: Postmenopausal Previous PAP test: 04/2018, WNL, HPV neg Other surgery: Other history: Material Received ThinPrep-Vaginal/Cervical ----- ------- Signed (signature on file) KINGS Ramirez (ASCP) 09/10/23 0924 ----- ------- END OF REPORT Gerry Ventura [facility] CYTOLOGY ORDERABLES F inal Result Performing Organization Address City/[facility] Co de Phone Number [facility] [address] [place] [address] [phone] * Lipid Panel, Standard (07/27/2022 9:28 AM EST) Triglycerides 97 mg/dL [facility] Comment:Desirable Triglyceri de: less than 150 mg/dLBorderline High Triglyceride 150-199 mg/dLHigh Triglyceride: 200-499 mg/dLVery High Triglyceride: greater than or equal to 5OO mg/dL Cholesterol 228 mg/dL [facility] Comment:Desirable Cholestero l: less than 200 mg/dLBorderline High Cholesterol: 200-239 mg/dLHigh Cholesterol: greater than 239 mg/dL LDL Cholesterol Calculated 147 mg/dl [facility] Comment:Desirable LDL: less than 100 mg/dLNear Optimal/Above Optimal LDL: 110- 129 mg/dLBorderline High LDL: 130-159 mg/dLHigh LDL: 160-189 mg/dLVery High LDL: greater than or equal to 190 mg/dL HDL Cholesterol 62 mg/dL [facility] Comment:Desirable HDL: great er than 40 mg/dL Note: This HDL assay may give artificially low results in patients with liver disease. 07/27/2022 9:28 AM EST 07/27/2022 9:29 AM EST [facility] External Provider LAB BLO OD ORDERABLES Final Result Performing Organization Address City/[facility]/ZIP Co de Phone Number [facility] [address] [place] [address] [phone] * Albumin, Random Urine W/Creatinine (07/17/2022 12:38 PM EST) Creatinine, Urine 95.47 mg/dL [facility] Microalbumin Urine 18.0 mg/L [facility] Microalbum Creatinine Ratio Ur 18.8 ug/mg cr [facility] Comment:Albumin/Creatinine R atio Reference Ranges: Normal: < 30 ug/mg creatinine Microalbuminuria: 30 - 300 ug/mg creatinineClinical Albuminuria: > 300 ug/mg creatinine 07/17/2022 12:3 8 PM EST 07/17/2022 1:20 PM EST us [facility] External Provider LAB URI NE ORDERABLES Final Result [facility] [address] [place] [phone] from Last 3 Months or Most Recently Relevant to Health Maintenance Insurance [facility] C3 * Guarantor: Aaliyah Luu Account Type Relation to Patient Date of Phone Billing Address Personal/Family Self [address] [facility] [address] [place] [phone] Care Teams Manager Of Finance Relationship Specialty Start Date End Date Johnny Galvan MD [address] [place] [address] PCP - General Internal Medicine 04/26/18
== END 2025-01-05 11:19 | disposition home or self-care (01) ==
LOC: HO.ENCR 11:01
PROVIDERS: PCP Internal Medicine; Visit Provider Student in an Organized Health Care Education/Training Program
DX: E04.2 Nontoxic multinodular goiter (principal); D35.01 Benign neoplasm of right adrenal gland
CPT/HCPCS: 99213

== ENCOUNTER → 2025-01-05 11:00 | Outpatient (BNVA) | payer MEDICAID, SELFPAY | PROVIDERS: PCP Internal Medicine; Visit Provider Student in an Organized Health Care Education/Training Program | DX: E04.2 Nontoxic multinodular goiter (principal); D35.01 Benign neoplasm of right adrenal gland | CPT/HCPCS: 99212 ==